=== PATIENT | male | born 1975 | race Caucasian/White ===

== ENCOUNTER 2020-09-20 17:02 | Inpatient (IN) | payer OTHER, SELFPAY ==
[2020-09-20] VITALS (23 sets, daily range): BP systolic 130–158; BP diastolic 73–106; PULSE 88–103; RESP 11–30; TEMP 36.5–37.7; O2SAT 98–100; BMI 34.8
--- NOTE | ~2020-09-20 | CT_ITS ---
EXAMINATION: CT abdomen pelvis w con DATE: 09/24/2020 12:16 INDICATION: Sigmoid diverticulitis. TECHNIQUE: Computed tomography (CT) of the abdomen and pelvis was performed with 100 mL Omnipaque 350 intravenous contrast. Automated exposure control and iterative reconstruction technique were employe d. The dose-length product was 1206.50 mGy-cm. COMPARISON: CT abdomen and pelvis 09/20/2020 FINDINGS: The visualized portions of the lung bases demonstrate minimal atelectasis on the right. No pleural effusion. The heart size is normal. No pericardial effusion. There is a 5 mm cyst in the live r. There is a gallstone in the gallbladder, which is normal in size. The spleen, pancreas, adrenal gl ands, and kidneys are normal. There are scattered diverticula in the colon. There is wall thickening of the sigmoid colon with surrounding fat stranding and nearby foci of free intraperitoneal gas. Ther e are no dilated loops of bowel. The appendix is normal. There are no pathologically enlarged lymph n odes. There is trace ascites. There is severe lower lumbar spondylosis. IMPRESSION: 1. Sigmoid diverticulitis with new microperforation. No abscess. Reviewed, dictated and finalized at location A.
--- NOTE | ~2020-09-20 | CT_ITS ---
EXAMINATION: CT abdomen pelvis w con DATE: 09/20/2020 20:46 INDICATION: Flank pain TECHNIQUE: Computed tomography (CT) of the abdomen and pelvis was performed with 100 cc Omnipaque 350 intravenous contrast. The dose-length product was 1235.05 mGy-cm. Automated exposure control and ite rative reconstruction technique were employed. COMPARISON: No prior studies for comparison. . FINDINGS: Lung bases are unremarkable. Heart size normal. No significant pleural or pericardial effus ion. There is thickening of the sigmoid colon with diverticula and surrounding inflammatory change, m ost likely acute diverticulitis. Small amount or free fluid in the left paracolic gutter. No evidence for bowel obstruction. Small subcentimeter hypodense lesion left hepatic lobe, too small to characterize, although likely be nign. The spleen, pancreas, adrenal glands and kidneys are unremarkable. Gallbladder is present. No s ignificant vascular abnormality. No lymphadenopathy. Mild lumbar spondylosis. IMPRESSION: 1. Thickened sigmoid colon with surrounding inflammatory changes. Findings compatible with acute dive rticulitis, although underlying infectious colitis or adenocarcinoma are not excluded. Recommend foll ow-up GI evaluation following resolution of acute inflammatory changes. Reviewed, dictated and finalized at location A. IMPRESSION: 1. Thickened sigmoid colon with surrounding inflammatory changes. Findings comp atible with acute diverticulitis, although underlying infectious colitis or sonia nocarcinoma are not excluded. Recommend follow-up GI evaluation following resol ution of acute inflammatory changes.
[2020-09-20 18:06] LABS: Basophils Absolute Auto 0.1 K/mm3 (0.0-0.1); Basophils Percent Auto 0.4 % (0.2-1.2); Eosinophils Absolute Auto 0.1 K/mm3 (0-0.3); Eosinophils Percent Auto 0.4 % (0-4.4); Hematocrit 44.4 % (42.0-52.0); Hemoglobin 14.8 g/dL (14.0-18.0); Immature Granulocyte Absolute 0.07 K/mm3 (0.00-0.031); Immature Granulocyte Percent A 0.4 % (0-0.5); Lymphocytes Absolute Auto 1.61 K/mm3 (0.9-3.2); Lymphocytes Percent Auto 9.8 % (18.3-44.2); Mean Corpuscular HGB Conc 33.3 g/dl (32-36); Mean Corpuscular Hemoglobin 31.7 pg (26-34); Mean Corpuscular Volume 95.1 fl (80-100); Mean Platelet Volume 9.1 fl (7.4-10.4); Monocytes Absolute Auto 1.2 K/mm3 (0.1-0.6); Monocytes Percent Auto 7.4 % (2.6-8.5); Neutrophils Absolute Auto 13.4 K/mm3 (1.3-6.7); Neutrophils Percent Auto 81.6 % (45.5-73.1); Platelet Count Result 260 k/mm3 (150-375); Red Blood Count 4.67 M/mm3 (4.6-6.20); White Blood Count 16.4 K/mm3 (4.5-10.0)
[2020-09-20 18:17] LABS: Alanine Aminotransferase 31 U/L (4-50); Albumin Level 4.9 g/dL (3.5-5.1); Alkaline Phosphatase 81 U/L (38-126); Anion Gap 12 mmol/L (8-16); Aspartate Amino Transferase 62 U/L (17-59); Bilirubin,Total 1.6 mg/dL (0.2-1.3); Blood Urea Nitrogen 15 mg/dL (9-20); Calcium 9.5 mg/dL (8.4-10.2); Carbon Dioxide 23 mmol/L (22-30); Chloride 107 mmol/L (98-107); Estimated CRCL calculation 134 ml/min; Estimated Glomerular Filt Rate > 60; Glucose 95 mg/dL (75-110); Lipase 57 U/L (23-300); Potassium 3.9 mmol/L (3.4-5.0); Sodium 142 mmol/L (137-145)
[2020-09-20 18:20] LABS: Add Urine Microscopic? YES; Appearance Urine Clear (Clear); Bilirubin Urine Negative (Negative); Blood Urine 1+ (Negative); Color Urine Yellow (Yellow); Glucose Urine UA Negative (Negative); Ketones Urine 2+ mg/dL (Negative); Leukocyte Esterase Ur Negative LEU/UL (Negative); Mucus Urine Few /lpf; Nitrate Urine Negative (Negative); Protein Urine 1+ mg/dL (Negative); RBC Urine 0-2 /hpf (0-2); Squamous Epithelial Cell Urine Rare /hpf (Few); Urobilinogen Urine Negative mg/dL (<2.0); WBC Urine 0-3 /hpf
[2020-09-20 18:21] LABS: Specific Grav Ur 1.031 (1.001-1.035)
--- NOTE | 2020-09-20 20:25 | ED.ABDPAIN ---
HPI - Abdominal Pain General Chief Complaint: Abdominal Pain Stated Complaint: Abd Pain Time Seen by Provider: 09/20/20 20:23 Source: patient Mode of arrival: ambulatory Limitations: no limitations History of Present Illness HPI narrative: Patient is a 45-year-old male complaining of right flank pain, 8 at 10, sharp, nonradiating started around 4 AM this morning. Patient was complained of nausea, denies any vomiting, diarrhea, dysuria, fever or chills. Patient denies any chest pain or shortness of breath. Related Data Allergies Allergy/AdvReac Type Severity Reaction Status Date / Time No Known Allergies Allergy Unknown Unverified 01/17/17 13:12 Review of Systems Review of Systems: All systems reviewed & are unremarkable except as noted in HPI and below Constitutional: Constitutional: Denies body ache(s), Denies chills, Denies excessive sweating, Denies fatigue, Denies fever(s), Denies headache(s), Denies lethargy, Denies malaise, Denies weakness and Denies weight loss Eyes: Eyes: Denies blurry vision, Denies change in vision and Denies loss of vision ENT: Denies dizziness, Denies ear discharge, Denies headache(s), Denies lip swelling, Denies epistaxis, Denies nasal congestion, Denies neck pain, Denies throat swelling and Denies tongue swelling Cardiovascular: Cardiovascular: Denies chest pain, Denies chest pain at rest, Denies chest pain with activity, Denies diaphoresis, Denies rapid heart rate, Denies edema, Denies irregular heart rhythm, Denies lightheadedness, Denies palpitations, Denies dyspnea and Denies dyspnea on exertion Respiratory: Respiratory: Denies chest congestion, Denies cough, Denies hemoptysis, Denies dyspnea and Denies dyspnea on exertion Gastrointestinal: Gastrointestinal: Denies abdominal pain, Denies melena, Denies hematochezia, Denies diarrhea, Denies vomiting and Denies hematemesis Musculoskeletal: Musculoskeletal: Denies abnormal gait, Denies deformity, Denies joint swelling, Denies limited range of motion, Denies neck pain and Denies numbness Neurologic: Denies Abnormal speech present, Denies abnormal gait, Denies confusion, Denies dizziness, Denies headache(s), Denies focal weakness, Denies loss of vision, Denies numbness, Denies Other visual disturbances, Denies Sensory deficit (Neuro) and Denies weakness Psychiatric: Psychiatric: Denies confusion, Denies depression, Denies auditory hallucinations, Denies homicidal ideation and Denies suicidal ideation Endocrine: Endocrine: Denies cold intolerance, Denies excessive sweating, Denies fatigue, Denies heat intolerance and Denies palpitations Hematologic/Lymphatic: Hematologic/Lymphatic: Denies easy bleeding and Denies easy bruising Allergic/Immunologic: Allergic/Immunologic: Denies lip swelling, Denies throat swelling and Denies tongue swelling PMFSH Family History Family History (Updated 12/24/13 @ 07:13 by DOCTOR UNKNOWN) Mother Family history of malignant neoplasm of uterus Social History Social History Smoking status: Former smoker Smoking end date: 04/29/02 Alcohol intake: current Gender identity (if verbalized by the patient): Male Comments Past medical history: None Social history: Non-smoker, no EtOH or drug use Exam Const: General: cooperative, healthy appearing, comfortable, no acute distress, well developed, alert and awake; No confusion Orientation/consciousness: oriented to person, oriented to place, oriented to time, patient oriented x3 and No confusion Limitations: no limitations HENMT: Head: normal to inspection, normocephalic and atraumatic Ears: hearing grossly normal bilaterally, TM normal on the right and TM normal on the left General nose exam: Normal external nose present, Normal nares present and No nasal discharge present Face and sinus: normal facial exam Mouth: Yes Normal oral and palatal mucosa present, Yes lip normal, Yes tongue normal and Yes oropharynx normal Throat: posterior oropharynx normal, to
[2020-09-20] MEDS: SODIUM CHLORIDE 0.9% IV 1,000 ML 999 ML IV CONT (21:02)
[2020-09-20] MEDS: PROMETHAZINE HCL 25 MG/ML AMPUL 12.5 MG IV PUSH (21:03)
[2020-09-20] MEDS: KETOROLAC 30 MG/ML VIAL (*BKC) IV PUSH (21:03)
[2020-09-20] MEDS: HYDROmorphone HCL INJ (*CRX) 1 MG/ML SYR 0.5 MG IV PUSH (22:24)
[2020-09-20] MEDS: metroNIDAZOLE 500 MG/ISO 100ML 500 MG/100 ML BAG 100 MG IVPB (22:26)
--- NOTE | 2020-09-20 23:32 | ADMGEN ---
This patient, Luis Felipe Chun, was admitted to Medical Room 346-01. Patient/family oriented to hospital policies and general routines including ID bracelet, bed and alarms, visiting hours, pain management, procedures, bathroom and other care routines, personal items, smoking policy, room service/diet, and visiting hours. Information on how to activate the Rapid Response Team has been discussed. Patient/Family are encouraged to report perceived risks to care and to ask questions if they do not understand what they are told or what they should do.
[2020-09-20] MEDS: LACTATED RINGERS 1,000 ML 125 ML IV CONT (23:35)
[2020-09-21] MEDS: HYDROmorphone HCL INJ (*CRX) 1 MG/ML SYR 0.5 MG IV PUSH ×3 (00:02→06:32)
[2020-09-21 00:35] VITALS: PULSE 88; O2SAT 99
[2020-09-21 05:13] VITALS: BP 144/87; PULSE 84; RESP 17; TEMP 36.9; O2SAT 99
[2020-09-21] MEDS: LACTATED RINGERS 1,000 ML 125 ML IV CONT ×2 (07:49→20:55)
--- NOTE | 2020-09-21 08:56 | PM.IMHP ---
H&P: HPI History of Present Illness Date/Time: 09/21/20 08:56 Chief Complaint: Patient is a 45-year-old man with a history of hyperlipidemia, depression, presents to emergency room with abdominal pain. Patient woke up at 4:00 a.m. on Saturday09/20/20 with lower abdominal pain bilaterally. He described as a gastric cramp felt like he needed to have a bowel movement. He was unable to have a bowel movement decided to go to work. He worked all day and his symptoms became gradually worse with intermittent sharp, stabbing, burning discomfort mostly to right lower quadrant but also has symptoms to left lower quadrant. He reported associated nausea and decreased appetite. He has not eaten anything since pain began. Denies any vomiting. He did have some fevers and chills in the emergency room prior to admission. He denies having a few loose stools but no melena, hematochezia, diarrhea. He has never had similar symptoms before in the past. He did have a colonoscopy in 25 years old because they believe she had irritable bowel disease. At that time they did remove 1 polyp that was benign. Initial vitals showed,0 He was afebrile, non tachycardic, elevated blood pressure 153/95, normal oxygenation on room air. Initial labs showed leukocytosis with at 16,400, with elevated neutrophils. CMP showed elevated total bilirubin at 1.6, elevated AST is 62. Normal ALT. Normal lipase. Urinalysis showed 1+ protein, 2+ ketones, 1+ blood, otherwise no acute signs of UTI. CT abdomen pelvis showed thickened sigmoid colon with surrounding inflammatory changes. Findings compatible with acute diverticulitis, although underlying infectious colitis or adenocarcinoma are not excluded. The patient was admitted into the hospital and started on IV antibiotics for coverage of diverticulitis, IV pain medications, IV antiemetics in a GI consultation for further evaluation and monitoring. Code status: Full code POA: , Angelita Chun PCP at [facility] in [place], Review of Systems Review of Systems: All systems reviewed & are unremarkable except as noted in HPI and below PMFSH Past Medical History Medical History Diverticulitis HLD (hyperlipidemia) Sleep apnea Surgical History Surgical History Hx of colonoscopy 2000, one polyp removed Hx of vasectomy Family History Family History Mother Family history of malignant neoplasm of uterus Father Afib Social History Social History (Updated 09/21/20 @ 09:52 by Cammy Smiley PA-C) Smoking status: Former smoker Tobacco type: cigarettes Smoking end date: 04/29/02 Alcohol intake: current Drinks per week: 12 Substance use: current Substance use type: marijuana Living arrangements: with family Occupation/Education: occupation Gender identity (if verbalized by the patient): Male Spiritual care concerns: No Meds Home Medications and Allergies Home Medications Medication Instructions Recorded Confirmed Type atorvastatin 40 mg PO DAILY 09/20/20 09/20/20 History sertraline 25 mg PO DAILY 09/20/20 09/20/20 History Allergies Allergy/AdvReac Type Severity Reaction Status Date / Time No Known Allergies Allergy Unknown Verified 09/20/20 23:43 Vital Signs Vital Signs - 24 hr 09/20/20 17:54 09/20/20 20:25 09/20/20 20:26 Temperature 97.7 F Pulse Rate 99 100 97 Respiratory Rate 19 15 17 Blood Pressure 153/95 H 158/106 H Pulse Oximetry 100 100 100 09/20/20 20:27 09/20/20 20:30 09/20/20 20:31 Temperature Pulse Rate 98 100 96 Respiratory Rate 11 L 16 11 L Blood Pressure 154/96 H Pulse Oximetry 100 98 99 09/20/20 20:47 09/20/20 21:01 09/20/20 21:02 Temperature Pulse Rate 103 H 97 98 Respiratory Rate 17 18 14 Blood Pressure 138/87 Pulse Oximetry 99 99 99 09/20/20 21:15
[2020-09-21 09:27] LABS: Basophils Absolute Auto 0.1 K/mm3 (0.0-0.1); Basophils Percent Auto 0.5 % (0.2-1.2); Eosinophils Absolute Auto 0.1 K/mm3 (0-0.3); Eosinophils Percent Auto 0.5 % (0-4.4); Hematocrit 39.6 % (42.0-52.0); Hemoglobin 13.3 g/dL (14.0-18.0); Immature Granulocyte Absolute 0.07 K/mm3 (0.00-0.031); Immature Granulocyte Percent A 0.5 % (0-0.5); Lymphocytes Absolute Auto 1.49 K/mm3 (0.9-3.2); Lymphocytes Percent Auto 9.6 % (18.3-44.2); Mean Corpuscular HGB Conc 33.6 g/dl (32-36); Mean Corpuscular Volume 95.4 fl (80-100); Monocytes Absolute Auto 1.2 K/mm3 (0.1-0.6); Monocytes Percent Auto 7.4 % (2.6-8.5); Neutrophils Absolute Auto 12.7 K/mm3 (1.3-6.7); Neutrophils Percent Auto 81.5 % (45.5-73.1); Platelet Count Result 216 k/mm3 (150-375); Red Blood Count 4.15 M/mm3 (4.6-6.20); White Blood Count 15.5 K/mm3 (4.5-10.0)
[2020-09-21] MEDS: PANTOPRAZOLE SODIUM IV 40 MG VIAL IV PUSH ×2 (09:29→21:00)
[2020-09-21] MEDS: HYDROmorphone HCL INJ (*CRX) 1 MG/ML SYR IV PUSH ×4 (09:29→20:51)
[2020-09-21 10:01] LABS: Alanine Aminotransferase 21 U/L (4-50); Albumin Level 3.9 g/dL (3.5-5.1); Alkaline Phosphatase 68 U/L (38-126); Anion Gap 6 mmol/L (8-16); Aspartate Amino Transferase 44 U/L (17-59); Bilirubin,Total 1.8 mg/dL (0.2-1.3); Blood Urea Nitrogen 12 mg/dL (9-20); Carbon Dioxide 24 mmol/L (22-30); Chloride 108 mmol/L (98-107); Estimated CRCL calculation 135 ml/min; Estimated Glomerular Filt Rate > 60; Glucose 103 mg/dL (75-110); Sodium 138 mmol/L (137-145)
[2020-09-21 11:12] LABS: CRP 18.5 mg/dL (<1.0)
[2020-09-21] MEDS: metroNIDAZOLE 500 MG/ISO 100ML 500 MG/100 ML BAG 100 MG IVPB ×3 (11:12→21:00)
[2020-09-21] MEDS: ONDANSETRON INJ 4 MG/2 ML VIAL IV PUSH (13:01)
[2020-09-21 14:00] VITALS: BP 130/62; PULSE 71; RESP 18; TEMP 36.3; O2SAT 98
--- NOTE | 2020-09-21 15:56 | WPDGICN ---
Assessment and Plan Assessment and plan (1) Acute diverticulitis: Code(s): K57.92 - Diverticulitis of intestine, part unspecified, without perforation or abscess without bleeding Status: Acute Assessment and Plan: npo, started on iv antibiotics continue medical support will need a colonoscopy but will wait 4-5 weeks until acute inflammation is resolved (2) Lower abdominal pain: Code(s): R10.30 - Lower abdominal pain, unspecified Status: Acute Assessment and Plan: diverticulitis vs colitis (reviewed CT scan), discussed with patient the need to have a colonoscopy in few more weeks as outpatient (3) Leukocytosis: Code(s): D72.829 - Elevated white blood cell count, unspecified Status: Acute Assessment and Plan: on antibitiocs, monitor GI Consult Note Consult date/time: 09/21/20 15:56 Reason for consult: lower abdominal pain, diverticulitis HPI: Luis Felipe Chun is a 45 year old male with history of hyperlipidemia and depression here with new onset of pain in lower abdominal pain that woke him up at 4:00 a.m. on Saturday09/20/20. He had cramping and feeling like having a bowel movement but could not. Pain progressively got worse, intermittent, sharp and stabbing in both lower quadrants, also had nausea and decreased appetite. He had a colonoscopy 20 years ago because IBS and apparently removed one polyp. Labs showed leukocytosis at 16,400. CT abdomen pelvis reviewed, showed thickened sigmoid colon with surrounding inflammatory changes. Started on iv antibiotics and admitted to hospital. Review of Systems Constitutional: Constitutional: Reports chills Eyes: Eyes: Denies blurry vision ENT: Reports Normal hearing present Cardiovascular: Cardiovascular: Denies chest pain Respiratory: Respiratory: Denies dyspnea Gastrointestinal: Gastrointestinal: Reports abdominal pain and Reports nausea Genitourinary: Genitourinary: Denies dysuria Musculoskeletal: Musculoskeletal: Denies neck pain Integumentary/Breasts: Skin/Breast: Denies dry skin Neurologic: Denies headache(s) Psychiatric: Psychiatric: Reports no additional psychiatric complaints [facility] Past Medical History Medical History (Updated 09/21/20 @ 16:01 by Nixon Vasquez MD) Diverticulitis HLD (hyperlipidemia) Leukocytosis Lower abdominal pain Sleep apnea Surgical History Surgical History Hx of colonoscopy 2000, one polyp removed Hx of vasectomy Family History Family History Mother Family history of malignant neoplasm of uterus Father Afib Social History Social History (Updated 09/21/20 @ 09:52 by Cammy Smiley PA-C) Smoking status: Former smoker Tobacco type: cigarettes Smoking end date: 04/29/02 Alcohol intake: current Drinks per week: 12 Substance use: current Substance use type: marijuana Living arrangements: with family Occupation/Education: occupation Gender identity (if verbalized by the patient): Male Spiritual care concerns: No Meds Home Medications and Allergies Home Medications Medication Instructions Recorded Confirmed Type atorvastatin 40 mg PO DAILY 09/20/20 09/20/20 History sertraline 25 mg PO DAILY 09/20/20 09/20/20 History Allergies Allergy/AdvReac Type Severity Reaction Status Date / Time No Known Allergies Allergy Unknown Verified 09/20/20 23:43 Vital Signs Vital Signs - 24 hr 09/20/20 17:54 09/20/20 20:25 09/20/20 20:26 Temperature 97.7 F Pulse Rate 99 100 97 Respiratory Rate 19 15 17 Blood Pressure 153/95 H 158/106 H Pulse Oximetry 100 100 100 09/20/20 20:27 09/20/20 20:30 09/20/20 20:31 Temperature Pulse Rate 98 100 96 Respiratory Rate 11 L 16 11 L Blood Pressure 154/96 H Pulse Oximetry 100 98 99 09/20/20 20:47 09/20/20 21:01 09/20/20 21:02 Temperature Pulse Rate 10
[2020-09-21 20:16] VITALS: BP 146/65; PULSE 80; RESP 14; TEMP 36; O2SAT 100
[2020-09-22] MEDS: ZOLPIDEM TARTRATE (*CRX) 5 MG TABLET PO ×2 (00:15→22:36)
[2020-09-22] MEDS: HYDROmorphone HCL INJ (*CRX) 1 MG/ML SYR IV PUSH ×7 (00:16→23:41)
[2020-09-22 00:21] VITALS: PULSE 97; O2SAT 95
[2020-09-22] MEDS: metroNIDAZOLE 500 MG/ISO 100ML 500 MG/100 ML BAG 100 MG IVPB ×4 (04:30→22:30)
[2020-09-22] MEDS: LACTATED RINGERS 1,000 ML 125 ML IV CONT ×2 (05:47→17:20)
[2020-09-22 06:00] VITALS: BP 133/76; PULSE 90; RESP 14; TEMP 36.6; O2SAT 97
[2020-09-22 06:02] LABS: Basophils Absolute Auto 0.1 K/mm3 (0.0-0.1); Basophils Percent Auto 0.4 % (0.2-1.2); Eosinophils Absolute Auto 0.1 K/mm3 (0-0.3); Eosinophils Percent Auto 0.7 % (0-4.4); Hematocrit 39.3 % (42.0-52.0); Hemoglobin 12.9 g/dL (14.0-18.0); Immature Granulocyte Percent A 0.7 % (0-0.5); Lymphocytes Absolute Auto 0.85 K/mm3 (0.9-3.2); Lymphocytes Percent Auto 6.1 % (18.3-44.2); Mean Corpuscular HGB Conc 32.8 g/dl (32-36); Mean Corpuscular Hemoglobin 31.6 pg (26-34); Mean Corpuscular Volume 96.3 fl (80-100); Mean Platelet Volume 9.5 fl (7.4-10.4); Monocytes Absolute Auto 1.1 K/mm3 (0.1-0.6); Monocytes Percent Auto 8.1 % (2.6-8.5); Neutrophils Absolute Auto 11.6 K/mm3 (1.3-6.7); Platelet Count Result 215 k/mm3 (150-375); Red Blood Count 4.08 M/mm3 (4.6-6.20); Red Cell Distribution Width 12.8 % (11.5-14.5); White Blood Count 13.9 K/mm3 (4.5-10.0)
[2020-09-22 06:28] LABS: Alanine Aminotransferase 17 U/L (4-50); Albumin Level 3.8 g/dL (3.5-5.1); Alkaline Phosphatase 67 U/L (38-126); Anion Gap 7 mmol/L (8-16); Aspartate Amino Transferase 36 U/L (17-59); Bilirubin,Total 1.6 mg/dL (0.2-1.3); Blood Urea Nitrogen 9 mg/dL (9-20); Calcium 8.8 mg/dL (8.4-10.2); Carbon Dioxide 22 mmol/L (22-30); Chloride 108 mmol/L (98-107); Estimated CRCL calculation 135 ml/min; Estimated Glomerular Filt Rate > 60; Glucose 82 mg/dL (75-110); Sodium 137 mmol/L (137-145)
[2020-09-22 06:42] LABS: CRP 24.1 mg/dL (<1.0)
[2020-09-22 08:59] LABS: Bilirubin Indirect 1.3 mg/dL (0-1.1)
[2020-09-22] MEDS: PANTOPRAZOLE SODIUM IV 40 MG VIAL IV PUSH ×2 (09:01→20:49)
--- NOTE | 2020-09-22 09:28 | PM.IMPN ---
Progress Note: A&P Assessment and Plan (1) Acute diverticulitis: Code(s): K57.92 - Diverticulitis of intestine, part unspecified, without perforation or abscess without bleeding Status: Acute Assessment and Plan: Patient with lower abdominal pain, low-grade fever, leukocytosis in the setting of acute diverticulitis. Patient is started on a clear liquid diet. Will monitor. IV pain medication IV antibiotics for diverticulitis GI was consulted and recommends continuing abx and will proceed with outpatient colonoscopy after acute infection improves. Continue monitoring. Appreciate GIs input. (2) HLD (hyperlipidemia): Code(s): E78.5 - Hyperlipidemia, unspecified Status: Acute Assessment and Plan: Hold statin while NPO. Restart when necessary. (3) Depression: Code(s): F32.9 - Major depressive disorder, single episode, unspecified Status: Acute Assessment and Plan: Hold SSRI while NPO. Restart when necessary. (4) Sleep apnea: Code(s): G47.30 - Sleep apnea, unspecified Status: Inactive Assessment and Plan: Continue home CPAP machine. Additional Plan Patient was admitted under inpatient for his acute infection and will require more than 2 days of hospitalization Time Spent With Patient Time with patient: 25 - 35 minutes Subjective Date/time seen: 09/22/20 09:28 Interval history: Date of service 09/22/20: He is feeling better this morning.Having improved pain, constant lower abdominal pain rated 5/10. Had one intermittent sharp stabbing pain this morning with increase of pain to 8/10 with associated nausea. No vomiting, chest pain, SOB, cough, fever, chills, or any other symptoms at this time. Review of Systems Review of Systems: All systems reviewed & are unremarkable except as noted in HPI and below Exam Narrative: Exam Narrative: General: 45-year-old man laying in bed on his back, appears to be uncomfortable with moving in bed. In no acute distress. Skin: No jaundice or cyanosis. Good skin turgor. Neck: Full range of motion. Supple. Respiratory: Lungs are clear to auscultation bilaterally. No bony chest wall tenderness. Cardiovascular: The heart has a regular rate and rhythm without murmur. Lower extremities: No lower extremity edema. Distal pulses are easily palpated. No calf tenderness to palpation. Gastrointestinal: TTP of RLQ and LLQ. The abdomen is soft, nondistended with active bowel sounds. Psychiatric: Lucid and oriented. Memory intact. Neurologic: No focal deficits. Speech is clear. No facial drooping. Objective Data Vital Signs Vital Signs: Vital Signs - 24 hr 09/21/20 14:00 09/21/20 20:16 09/22/20 00:21 Temperature 97.4 F L 96.8 F L Pulse Rate 71 80 97 Respiratory Rate 18 14 Blood Pressure 130/62 146/65 H Pulse Oximetry 98 100 95 09/22/20 06:00 Temperature 98 F Pulse Rate 90 Respiratory Rate 14 Blood Pressure 133/76 Pulse Oximetry 97 Intake/Output Intake/Output: Intake & Output 09/19/20 09/20/20 09/21/20 09/22/20 23:59 23:59 23:59 23:59 Intake Total 1150 2550 1440 Output Total 1825 200 Balance 8662 279 6062 Meds/Results Medications: Active Medications Generic Name Dose Route Start Last Admin Trade Name Freq PRN Reason Stop Dose Admin Hydromorphone HCl 1 mg 09/21/20 08:55 09/22/20 09:09 Hydromorphone Hcl Inj (*Crx) 1 Mg/Ml Syr IV PUSH 1 mg Q3H PRN Administration Pain Rated 7-10 Hydromorphone HCl 0.5 mg 09/21/20 08:55 Hydromorphone Hcl Inj (*Crx) 1 Mg/Ml Syr IV PUSH Q3H PRN Pain Rated 4-6 Lactated Ringer's 1,000 mls @ 125 mls/hr 09/20/20 22:30 09/22/20 09:01 Lr - Lactated Ringers Iv IV CONT 0 mls/hr .Q8H JOSH Infusion Metronidazole
[2020-09-22] MEDS: LORATADINE/PSEUDOEPHEDRINE (*CRX) 10/240 MG TABLET ER 24 HR 1 TAB PO (12:10)
[2020-09-22] MEDS: ACETAMINOPHEN 325 MG TABLET 650 MG PO (12:10)
[2020-09-22 14:00] VITALS: BP 129/69; PULSE 87; RESP 16; TEMP 37.3; O2SAT 98
--- NOTE | 2020-09-22 16:20 | WPDGIPROGNO ---
Progress Note: A&P Assessment and Plan (1) Acute diverticulitis: Code(s): K57.92 - Diverticulitis of intestine, part unspecified, without perforation or abscess without bleeding Status: Acute Assessment and Plan: continue current treatment with pain management, antiemetics prn and iv antibiotic colonoscopy in few more weeks after acute infection gone (2) Leukocytosis: Code(s): D72.829 - Elevated white blood cell count, unspecified Status: Acute Assessment and Plan: on antibiotics, continue to monitor (3) Lower abdominal pain: Code(s): R10.30 - Lower abdominal pain, unspecified Status: Acute Assessment and Plan: improving Subjective Date/time seen: 09/22/20 16:20 Interval history: still with pain but slowly improving Review of Systems Review of Systems: All systems reviewed & are unremarkable except as noted in HPI and below Exam Const: General: comfortable and no acute distress HENMT: General nose exam: Normal nares present Eyes: General: appearance normal, both eyes and all related structures Neck: Neck: supple Resp: Auscultation: clear to auscultation bilaterally Cardio: Rate: regular rate GI: GI Palp: No Firmness to palpation present (GI) and Yes Tenderness to palpation present (GI) (less tender today, no rebound) Auscultation: normal bowel sounds Skin: General skin exam: normal color Neuro: Speech: normal speech Motor exam (neuro): Normal motor muscle tone present throughout Extrem: General: normal to inspection Psych: Mental Status: mental status grossly normal Objective Data Vital Signs Vital Signs: Vital Signs - 24 hr 09/21/20 20:16 09/22/20 00:21 09/22/20 06:00 Temperature 96.8 F L 98 F Pulse Rate 80 97 90 Respiratory Rate 14 14 Blood Pressure 146/65 H 133/76 Pulse Oximetry 100 95 97 09/22/20 14:00 Temperature 99.2 F Pulse Rate 87 Respiratory Rate 16 Blood Pressure 129/69 Pulse Oximetry 98 Intake/Output Intake/Output: Intake & Output 09/19/20 09/20/20 09/21/20 09/22/20 23:59 23:59 23:59 23:59 Intake Total 1150 2550 2590 Output Total 1825 200 Balance 0775 354 7440 Meds/Results Medications: Active Medications Generic Name Dose Route Start Last Admin Trade Name Freq PRN Reason Stop Dose Admin Acetaminophen 650 mg 09/22/20 11:47 09/22/20 12:10 Acetaminophen 325 Mg Tablet PO 650 mg Q4H PRN Administration Headache Hydromorphone HCl 1 mg 09/21/20 08:55 09/22/20 13:36 Hydromorphone Hcl Inj (*Crx) 1 Mg/Ml Syr IV PUSH 1 mg Q3H PRN Administration Pain Rated 7-10 Hydromorphone HCl 0.5 mg 09/21/20 08:55 Hydromorphone Hcl Inj (*Crx) 1 Mg/Ml Syr IV PUSH Q3H PRN Pain Rated 4-6 Lactated Ringer's 1,000 mls @ 125 mls/hr 09/20/20 22:30 09/22/20 12:45 Lr - Lactated Ringers Iv IV CONT 125 mls/hr .Q8H JOSH Infusion Metronidazole 500 mg in 100 mls @ 100 mls/hr 09/21/20 10:00 09/22/20 12:45 Flagyl 500 Mg/Iso Soln 100 Ml IVPB Infused Q6H JOSH Infusion Levofloxacin/Dextrose 750 mg in 150 mls @ 100 mls/hr 09/21/20 09:00 09/22/20 11:38 Levaquin 750 Mg/D5w 150 Ml IVPB Infused Q24H JOSH Infusion Loratadine/Pseudoephedrine Sulfate 1 tab 09/22/20 09:00 09/22/20 12:10 Loratadine/Pseudoephedrine (*Crx) 10/240 Mg Tablet Er 24 Hr PO 1 tab QAM JOSH Administration Ondansetron HCl 4 mg 09/20/20 22:28 09/21/20 13:01 Ondansetron Inj 4 Mg/2 Ml Vial IV PUSH 4 mg Q4H PRN Administration Nausea Pantoprazole Sodium 40 mg 09/21/20 09:00 09/22/20 09:01 Pantoprazole Sodium Iv 40 Mg Vial IV PUSH 40 mg Q12HR JOSH Administration Radiology Results: ITS Impressions Abdomen/Pelvis CT 09/20/20 20:49 IMPRESSION: 1. Thickened sigmoid colon with surrounding inflammatory changes. Findings compatible with acute diverticulitis, although underlying infectious colitis or adenocarcinoma are not excluded. Recommend follow-up GI eval
[2020-09-22 20:16] VITALS: BP 140/72; PULSE 91; RESP 20; TEMP 36.8; O2SAT 100
[2020-09-22 22:50] VITALS: PULSE 89; O2SAT 98
[2020-09-23] MEDS: HYDROmorphone HCL INJ (*CRX) 1 MG/ML SYR IV PUSH ×3 (03:18→10:28)
[2020-09-23] MEDS: ONDANSETRON INJ 4 MG/2 ML VIAL IV PUSH (03:21)
[2020-09-23] MEDS: metroNIDAZOLE 500 MG/ISO 100ML 500 MG/100 ML BAG 100 MG IVPB ×4 (03:23→21:09)
[2020-09-23 05:26] VITALS: BP 138/78; PULSE 89; RESP 18; TEMP 36.1; O2SAT 99
[2020-09-23 05:47] LABS: Basophils Percent Auto 0.5 % (0.2-1.2); Eosinophils Absolute Auto 0.2 K/mm3 (0-0.3); Eosinophils Percent Auto 2.2 % (0-4.4); Hematocrit 39.6 % (42.0-52.0); Hemoglobin 12.9 g/dL (14.0-18.0); Immature Granulocyte Absolute 0.06 K/mm3 (0.00-0.031); Immature Granulocyte Percent A 0.7 % (0-0.5); Lymphocytes Percent Auto 10.2 % (18.3-44.2); Mean Corpuscular HGB Conc 32.6 g/dl (32-36); Mean Corpuscular Hemoglobin 31.8 pg (26-34); Mean Corpuscular Volume 97.5 fl (80-100); Mean Platelet Volume 9.6 fl (7.4-10.4); Monocytes Absolute Auto 0.9 K/mm3 (0.1-0.6); Monocytes Percent Auto 10.3 % (2.6-8.5); Neutrophils Absolute Auto 6.7 K/mm3 (1.3-6.7); Neutrophils Percent Auto 76.1 % (45.5-73.1); Platelet Count Result 219 k/mm3 (150-375); Red Blood Count 4.06 M/mm3 (4.6-6.20); Red Cell Distribution Width 12.9 % (11.5-14.5); White Blood Count 8.8 K/mm3 (4.5-10.0)
[2020-09-23 06:16] LABS: Alanine Aminotransferase 14 U/L (4-50); Albumin Level 3.7 g/dL (3.5-5.1); Alkaline Phosphatase 62 U/L (38-126); Anion Gap 7 mmol/L (8-16); Aspartate Amino Transferase 36 U/L (17-59); Blood Urea Nitrogen 7 mg/dL (9-20); Carbon Dioxide 29 mmol/L (22-30); Chloride 104 mmol/L (98-107); Estimated CRCL calculation 120 ml/min; Estimated Glomerular Filt Rate > 60; Glucose 106 mg/dL (75-110); Potassium 3.8 mmol/L (3.4-5.0); Sodium 140 mmol/L (137-145)
[2020-09-23 06:26] LABS: CRP 20.1 mg/dL (<1.0)
[2020-09-23] MEDS: LACTATED RINGERS 1,000 ML 125 ML IV CONT (08:56)
[2020-09-23] MEDS: PANTOPRAZOLE SODIUM IV 40 MG VIAL IV PUSH ×2 (08:57→21:10)
[2020-09-23] MEDS: LORATADINE/PSEUDOEPHEDRINE (*CRX) 10/240 MG TABLET ER 24 HR 1 TAB PO (08:58)
--- NOTE | 2020-09-23 10:03 | PM.IMPN ---
Progress Note: A&P Assessment and Plan (1) Acute diverticulitis: Code(s): K57.92 - Diverticulitis of intestine, part unspecified, without perforation or abscess without bleeding Status: Acute Assessment and Plan: Patient with lower abdominal pain, low-grade fever, leukocytosis in the setting of acute diverticulitis. Patient was advanced to a full liquid diet. He has been able to hold down. To start oral pain meds, IV pain meds p.r.n. for severe pain IV antibiotics for diverticulitis GI was consulted and recommends continuing abx and will proceed with outpatient colonoscopy after acute infection improves. Continue monitoring. Appreciate GIs input. (2) HLD (hyperlipidemia): Code(s): E78.5 - Hyperlipidemia, unspecified Status: Acute Assessment and Plan: Restart statin. (3) Depression: Code(s): F32.9 - Major depressive disorder, single episode, unspecified Status: Acute Assessment and Plan: Continue SSRI. (4) Sleep apnea: Code(s): G47.30 - Sleep apnea, unspecified Status: Inactive Assessment and Plan: Continue home CPAP machine. Additional Plan Patient was admitted under inpatient for his acute infection and will require more than 2 days of hospitalization Time Spent With Patient Time with patient: 25 - 35 minutes Subjective Date/time seen: 09/23/20 10:03 Interval history: Date of service 09/23/20: He is feeling better this morning but after eating he has been getting increased pain to his lower abdomen, increasing to 8/10. He still does not have much of an appetite. Denies any vomiting, fevers or chills. Having improved pain, constant lower abdominal pain rated 3/10. No vomiting, chest pain, SOB, cough, fever, chills, or any other symptoms at this time. Review of Systems Review of Systems: All systems reviewed & are unremarkable except as noted in HPI and below Exam Narrative: Exam Narrative: General: 45-year-old man laying in bed on his back, appears to be comfortable at this time. In no acute distress. Skin: No jaundice or cyanosis. Good skin turgor. Neck: Full range of motion. Supple. Respiratory: Lungs are clear to auscultation bilaterally. No bony chest wall tenderness. Cardiovascular: The heart has a regular rate and rhythm without murmur. Lower extremities: No lower extremity edema. Distal pulses are easily palpated. No calf tenderness to palpation. Gastrointestinal: TTP of RLQ and LLQ. The abdomen is soft, nondistended with active bowel sounds. Psychiatric: Lucid and oriented. Memory intact. Neurologic: No focal deficits. Speech is clear. No facial drooping. Objective Data Vital Signs Vital Signs: Vital Signs - 24 hr 09/22/20 14:00 09/22/20 20:16 09/22/20 22:50 Temperature 99.2 F 98.3 F Pulse Rate 87 91 89 Respiratory Rate 16 20 Blood Pressure 129/69 140/72 Pulse Oximetry 98 100 98 09/23/20 05:26 Temperature 97 F L Pulse Rate 89 Respiratory Rate 18 Blood Pressure 138/78 Pulse Oximetry 99 Intake/Output Intake/Output: Intake & Output 09/20/20 09/21/20 09/22/20 09/23/20 23:59 23:59 23:59 23:59 Intake Total 1150 2550 4510 1910 Output Total 1825 2000 1200 Balance 1552 118 1943 710 Meds/Results Medications: Active Medications Generic Name Dose Route Start Last Admin Trade Name Freq PRN Reason Stop Dose Admin Acetaminophen 650 mg 09/22/20 11:47 09/22/20 12:10 Acetaminophen 325 Mg Tablet PO 650 mg Q4H PRN Administration Headache Atorvastatin Calcium 40 mg 09/23/20 09:25 Atorvastatin 40 Mg Tablet PO DAILY JOSH Hydromorphone HCl 1 mg 09/21/20 08:55 09/23/20 06:23 Hydromorphone Hcl Inj (*Crx) 1 Mg/Ml Syr IV PUSH 1 mg Q3H PRN Administration Pain
[2020-09-23] MEDS: ATORVASTATIN 40 MG TABLET PO (11:28)
[2020-09-23] MEDS: SERTRALINE HCL 25 MG TABLET PO (11:28)
[2020-09-23 14:00] VITALS: BP 136/98; PULSE 90; RESP 16; TEMP 37.2; O2SAT 97
[2020-09-23] MEDS: HYDROmorphone HCL INJ (*CRX) 1 MG/ML SYR 0.5 MG IV PUSH (15:08)
--- NOTE | 2020-09-23 15:08 | WPDGIPROGNO ---
Progress Note: A&P Assessment and Plan (1) Acute diverticulitis: Code(s): K57.92 - Diverticulitis of intestine, part unspecified, without perforation or abscess without bleeding Status: Acute Assessment and Plan: continue current treatment with pain management, antiemetics prn and iv antibiotic today finally normal wbc, he is feeling better colonoscopy in few more weeks after acute infection gone (2) Leukocytosis: Code(s): D72.829 - Elevated white blood cell count, unspecified Status: Acute Assessment and Plan: on antibiotics, continue to monitor today normal wbc (3) Lower abdominal pain: Code(s): R10.30 - Lower abdominal pain, unspecified Status: Acute Assessment and Plan: improving Subjective Date/time seen: 09/23/20 15:08 Interval history: feeling better today, eating liquid diet with less abdominal pain Review of Systems Review of Systems: All systems reviewed & are unremarkable except as noted in HPI and below Exam Const: General: comfortable and no acute distress HENMT: General nose exam: Normal nares present Eyes: General: appearance normal, both eyes and all related structures Neck: Neck: supple Resp: Auscultation: clear to auscultation bilaterally Cardio: Rate: regular rate GI: GI Palp: No Firmness to palpation present (GI) and Yes Tenderness to palpation present (GI) (TTP in rlq and llq but no rebound, slowly improving) Auscultation: normal bowel sounds Skin: General skin exam: normal color Neuro: Speech: normal speech Motor exam (neuro): Normal motor muscle tone present throughout Extrem: General: normal to inspection Psych: Mental Status: mental status grossly normal Objective Data Vital Signs Vital Signs: Vital Signs - 24 hr 09/22/20 20:16 09/22/20 22:50 09/23/20 05:26 Temperature 98.3 F 97 F L Pulse Rate 91 89 89 Respiratory Rate 20 18 Blood Pressure 140/72 138/78 Pulse Oximetry 100 98 99 09/23/20 14:00 Temperature 98.9 F Pulse Rate 90 Respiratory Rate 16 Blood Pressure 136/98 H Pulse Oximetry 97 Intake/Output Intake/Output: Intake & Output 09/20/20 09/21/20 09/22/20 09/23/20 23:59 23:59 23:59 23:59 Intake Total 1150 2550 4510 2450 Output Total 1825 2000 1200 Balance 5565 601 6925 1250 Meds/Results Medications: Active Medications Generic Name Dose Route Start Last Admin Trade Name Freq PRN Reason Stop Dose Admin Acetaminophen 650 mg 09/23/20 11:45 Acetaminophen 325 Mg Tablet PO Q4H PRN Headache, pain 1-3 Atorvastatin Calcium 40 mg 09/23/20 09:25 09/23/20 11:28 Atorvastatin 40 Mg Tablet PO 40 mg DAILY JOSH Administration Hydromorphone HCl 0.5 mg 09/23/20 11:45 Hydromorphone Hcl Inj (*Crx) 1 Mg/Ml Syr IV PUSH Q3H PRN Pain Rated 7-10 Hydromorphone HCl 1 mg 09/23/20 11:45 Hydromorphone Hcl Inj (*Crx) 1 Mg/Ml Syr IV PUSH Q3H PRN Severe uncontrolled pain Metronidazole 500 mg in 100 mls @ 100 mls/hr 09/21/20 10:00 09/23/20 11:30 Flagyl 500 Mg/Iso Soln 100 Ml IVPB Infused Q6H JOSH Infusion Levofloxacin/Dextrose 750 mg in 150 mls @ 100 mls/hr 09/21/20 09:00 09/23/20 10:28 Levaquin 750 Mg/D5w 150 Ml IVPB Infused Q24H JOSH Infusion Loratadine/Pseudoephedrine Sulfate 1 tab 09/22/20 09:00 09/23/20 08:58 Loratadine/Pseudoephedrine (*Crx) 10/240 Mg Tablet Er 24 Hr PO 1 tab QAM JOSH Administration Ondansetron HCl 4 mg 09/20/20 22:28 09/23/20 03:21 Ondansetron Inj 4 Mg/2 Ml Vial IV PUSH 4 mg Q4H PRN Administration Nausea Pantoprazole Sodium 40 mg 09/21/20 09:00 09/23/20 08:57 Pantoprazole Sodium Iv 40 Mg Vial IV PUSH 40 mg Q12HR JOSH Administration Sertraline HCl 25 mg 09/23/20 09:25 09/23/20 11:28 Sertraline Hcl 25 Mg Tablet PO 25 mg QAM JOSH Administration Tramadol HCl 50 mg 09/23/20 11:45 Tramadol Hcl (*Crx) 50 Mg Tablet PO Q4H PRN Pain Rated 4-6 Zol
[2020-09-23 20:44] VITALS: BP 148/83; PULSE 84; RESP 18; TEMP 36.1; O2SAT 100
[2020-09-23] MEDS: traMADol HCL (*CRX) 50 MG TABLET PO (21:10)
[2020-09-23] MEDS: ZOLPIDEM TARTRATE (*CRX) 5 MG TABLET PO (21:10)
[2020-09-23 21:45] VITALS: PULSE 86; O2SAT 97
[2020-09-24] MEDS: metroNIDAZOLE 500 MG/ISO 100ML 500 MG/100 ML BAG 100 MG IVPB ×4 (04:51→22:11)
[2020-09-24 05:41] LABS: Basophils Absolute Auto 0.1 K/mm3 (0.0-0.1); Basophils Percent Auto 0.9 % (0.2-1.2); Eosinophils Absolute Auto 0.2 K/mm3 (0-0.3); Eosinophils Percent Auto 3.2 % (0-4.4); Hemoglobin 13.4 g/dL (14.0-18.0); Immature Granulocyte Absolute 0.05 K/mm3 (0.00-0.031); Immature Granulocyte Percent A 0.7 % (0-0.5); Lymphocytes Absolute Auto 0.99 K/mm3 (0.9-3.2); Lymphocytes Percent Auto 14.6 % (18.3-44.2); Mean Corpuscular HGB Conc 33.5 g/dl (32-36); Mean Corpuscular Hemoglobin 31.6 pg (26-34); Mean Corpuscular Volume 94.3 fl (80-100); Mean Platelet Volume 9.4 fl (7.4-10.4); Monocytes Absolute Auto 0.9 K/mm3 (0.1-0.6); Monocytes Percent Auto 13.4 % (2.6-8.5); Neutrophils Absolute Auto 4.6 K/mm3 (1.3-6.7); Neutrophils Percent Auto 67.2 % (45.5-73.1); Platelet Count Result 270 k/mm3 (150-375); Red Blood Count 4.24 M/mm3 (4.6-6.20); Red Cell Distribution Width 12.6 % (11.5-14.5); White Blood Count 6.8 K/mm3 (4.5-10.0)
[2020-09-24] MEDS: traMADol HCL (*CRX) 50 MG TABLET PO ×2 (05:54→13:00)
[2020-09-24 05:55] VITALS: BP 153/88; PULSE 81; RESP 16; TEMP 36.3; O2SAT 100
[2020-09-24 06:12] LABS: Alanine Aminotransferase 15 U/L (4-50); Albumin Level 3.8 g/dL (3.5-5.1); Alkaline Phosphatase 64 U/L (38-126); Anion Gap 8 mmol/L (8-16); Aspartate Amino Transferase 37 U/L (17-59); Bilirubin,Total 0.7 mg/dL (0.2-1.3); Blood Urea Nitrogen 8 mg/dL (9-20); CRP 13.5 mg/dL (<1.0); Calcium 9.3 mg/dL (8.4-10.2); Carbon Dioxide 27 mmol/L (22-30); Chloride 107 mmol/L (98-107); Estimated CRCL calculation 120 ml/min; Estimated Glomerular Filt Rate > 60; Glucose 109 mg/dL (75-110); Potassium 4.1 mmol/L (3.4-5.0); Sodium 142 mmol/L (137-145)
[2020-09-24] MEDS: HYDROmorphone HCL INJ (*CRX) 1 MG/ML SYR 0.5 MG IV PUSH ×3 (08:04→22:15)
[2020-09-24] MEDS: ONDANSETRON INJ 4 MG/2 ML VIAL IV PUSH ×3 (08:28→22:10)
[2020-09-24] MEDS: PANTOPRAZOLE SODIUM IV 40 MG VIAL IV PUSH ×2 (08:28→22:11)
[2020-09-24] MEDS: LORATADINE/PSEUDOEPHEDRINE (*CRX) 10/240 MG TABLET ER 24 HR 1 TAB PO (11:00)
[2020-09-24] MEDS: SERTRALINE HCL 25 MG TABLET PO (11:00)
[2020-09-24] MEDS: ATORVASTATIN 40 MG TABLET PO (11:00)
--- NOTE | 2020-09-24 11:52 | WPDGIPROGNO ---
Progress Note: A&P Assessment and Plan (1) Acute diverticulitis: Code(s): K57.92 - Diverticulitis of intestine, part unspecified, without perforation or abscess without bleeding Status: Acute Assessment and Plan: continue current treatment with pain management and iv antibiotic wbc normal last 2 days, crp elevated but trending down given severe pain this morning, probably wait another day before he can go home colonoscopy in few more weeks after acute infection gone (2) Leukocytosis: Code(s): D72.829 - Elevated white blood cell count, unspecified Status: Acute Assessment and Plan: on antibiotics, continue to monitor wbc normal last 2 days (3) Lower abdominal pain: Code(s): R10.30 - Lower abdominal pain, unspecified Status: Acute Assessment and Plan: on pain meds prn, improved after dose dilaudid this morning Subjective Date/time seen: 09/24/20 11:52 Interval history: earlier this morning had severe rlq pain but resolved now, lasted about 5 minutes also dry heaving. Overall much better now. Review of Systems Review of Systems: All systems reviewed & are unremarkable except as noted in HPI and below Exam Const: General: comfortable and no acute distress HENMT: General nose exam: Normal nares present Eyes: General: appearance normal, both eyes and all related structures Neck: Neck: supple Resp: Auscultation: clear to auscultation bilaterally Cardio: Rate: regular rate GI: Inspection: distended GI Palp: Yes Tenderness to palpation present (GI) (mild ttp in lower abdomen, no rebound or guarding) Auscultation: normal bowel sounds Skin: General skin exam: normal color Neuro: Speech: normal speech Motor exam (neuro): Normal motor muscle tone present throughout Extrem: General: normal to inspection Psych: Mental Status: mental status grossly normal Objective Data Vital Signs Vital Signs: Vital Signs - 24 hr 09/23/20 14:00 09/23/20 20:44 09/23/20 21:45 Temperature 98.9 F 97 F L Pulse Rate 90 84 86 Respiratory Rate 16 18 Blood Pressure 136/98 H 148/83 H Pulse Oximetry 97 100 97 09/24/20 05:55 Temperature 97.3 F L Pulse Rate 81 Respiratory Rate 16 Blood Pressure 153/88 H Pulse Oximetry 100 Intake/Output Intake/Output: Intake & Output 09/21/20 09/22/20 09/23/20 05/29/21 23:59 23:59 23:59 23:59 Intake Total 2550 4510 3640 550 Output Total 1825 2000 1200 800 Balance 725 2510 4440 -425 Meds/Results Medications: Active Medications Generic Name Dose Route Start Last Admin Trade Name Freq PRN Reason Stop Dose Admin Acetaminophen 650 mg 09/23/20 11:45 Acetaminophen 325 Mg Tablet PO Q4H PRN Headache, pain 1-3 Atorvastatin Calcium 40 mg 09/23/20 09:25 09/24/20 11:00 Atorvastatin 40 Mg Tablet PO 40 mg DAILY JOSH Administration Hydromorphone HCl 0.5 mg 09/23/20 11:45 09/24/20 08:04 Hydromorphone Hcl Inj (*Crx) 1 Mg/Ml Syr IV PUSH 0.5 mg Q3H PRN Administration Pain Rated 7-10 Hydromorphone HCl 1 mg 09/23/20 11:45 Hydromorphone Hcl Inj (*Crx) 1 Mg/Ml Syr IV PUSH Q3H PRN Severe uncontrolled pain Metronidazole 500 mg in 100 mls @ 100 mls/hr 09/21/20 10:00 09/24/20 10:15 Flagyl 500 Mg/Iso Soln 100 Ml IVPB 100 mls/hr Q6H JOSH Administration Levofloxacin/Dextrose 750 mg in 150 mls @ 100 mls/hr 09/21/20 09:00 09/24/20 10:16 Levaquin 750 Mg/D5w 150 Ml IVPB Infused Q24H JOSH Infusion Loratadine/Pseudoephedrine Sulfate 1 tab 09/22/20 09:00 09/24/20 11:00 Loratadine/Pseudoephedrine (*Crx) 10/240 Mg Tablet Er 24 Hr PO 1 tab QAM JOSH Administration Ondansetron HCl 4 mg 09/20/20 22:28 09/24/20 08:28 Ondansetron Inj 4 Mg/2 Ml Vial IV PUSH 4 mg Q4H PRN Administration Nausea Pantoprazole Sodium 40 mg 09/21/20 09:00 09/24/20 08:28 Pantoprazole Sodium Iv 40 Mg Vial IV PUSH 40 mg Q12HR JOSH Administration Sertraline HCl 25 mg
--- NOTE | 2020-09-24 12:54 | PM.IMPN ---
Progress Note: A&P Assessment and Plan (1) Diverticulitis of intestine with perforation without abscess: Code(s): K57.80 - Diverticulitis of intestine, part unspecified, with perforation and abscess without bleeding Status: Acute Assessment and Plan: Patient with lower abdominal pain, low-grade fever, leukocytosis in the setting of acute diverticulitis. Patient had sudden pain this morning and repeat CT scan with contrast was ordered which showed Sigmoid diverticulitis with new microperforation. No abscess. I consulted the surgeon, Dr. Stallworth, who recommends conservative treatment with continued IV antibiotics and put the patient on a clear liquid diet. Continue monitoring labs, pain control, and hill consult on the patient. GI was consulted and recommends continuing abx and will proceed with outpatient colonoscopy after acute infection improves. Continue monitoring. Appreciate GI and surgeries input. (2) HLD (hyperlipidemia): Code(s): E78.5 - Hyperlipidemia, unspecified Status: Acute Assessment and Plan: Continue statin. (3) Depression: Code(s): F32.9 - Major depressive disorder, single episode, unspecified Status: Acute Assessment and Plan: Continue SSRI. (4) Sleep apnea: Code(s): G47.30 - Sleep apnea, unspecified Status: Inactive Assessment and Plan: Continue home CPAP machine. Time Spent With Patient Time with patient: 25 - 35 minutes Subjective Date/time seen: 09/24/20 12:54 Interval history: Date of service 09/24/20: The patient states since 3:00 p.m. yesterday he was feeling well without any abdominal pain and eating without any issues. Then at 7:15 a.m. this morning he developed sharp stabbing severe pain similar to what brought him into the emergency room in the 1st place. He had sudden nausea and some dry heaves. He also was diaphoretic. He denied any fevers. He required IV Dilaudid to help better control his pain and antiemetics. He was found have a micro perforation from his diverticulitis. At this time his pain is controlled, he is eating a clear liquid diet and is feeling better. Denies any chest pain, shortness of breath, leg swelling, calf pain or any other symptoms at this time. Review of Systems Review of Systems: All systems reviewed & are unremarkable except as noted in HPI and below Exam Narrative: Exam Narrative: General: 45-year-old man sitting up in bed talking to his , appears to be comfortable at this time. In no acute distress. Skin: No jaundice or cyanosis. Good skin turgor. Neck: Full range of motion. Supple. Respiratory: Lungs are clear to auscultation bilaterally. No bony chest wall tenderness. Cardiovascular: The heart has a regular rate and rhythm without murmur. Lower extremities: No lower extremity edema. Distal pulses are easily palpated. No calf tenderness to palpation. Gastrointestinal: TTP of RLQ and LLQ more so RLQ. The abdomen is soft, nondistended with active bowel sounds. Psychiatric: Lucid and oriented. Memory intact. Neurologic: No focal deficits. Speech is clear. No facial drooping. Objective Data Vital Signs Vital Signs: Vital Signs - 24 hr 09/23/20 14:00 09/23/20 20:44 09/23/20 21:45 Temperature 98.9 F 97 F L Pulse Rate 90 84 86 Respiratory Rate 16 18 Blood Pressure 136/98 H 148/83 H Pulse Oximetry 97 100 97 09/24/20 05:55 Temperature 97.3 F L Pulse Rate 81 Respiratory Rate 16 Blood Pressure 153/88 H Pulse Oximetry 100 Intake/Output Intake/Output: Intake & Output 09/21/20 09/22/20 09/23/20 09/24/20 23:59 23:59 23:59 23:59 Intake Total 2550 4510 3640 550 Output Total 1825 2000 1200 800 Balance 725 2510 2440 -250 Meds/Results Medications: Active Medications
[2020-09-24 14:00] VITALS: BP 161/57; PULSE 76; RESP 16; TEMP 36.5; O2SAT 99
[2020-09-24] MEDS: HYDROmorphone HCL INJ (*CRX) 1 MG/ML SYR IV PUSH (14:19)
[2020-09-24] MEDS: KETOROLAC 30 MG/ML VIAL (*BKC) IV PUSH (16:33)
[2020-09-24] MEDS: LACTATED RINGERS 1,000 ML 100 ML IV CONT (16:35)
[2020-09-24 20:10] VITALS: BP 154/82; PULSE 62; RESP 16; TEMP 36; O2SAT 100
[2020-09-24] MEDS: ZOLPIDEM TARTRATE (*CRX) 5 MG TABLET PO (22:12)
[2020-09-24 23:50] VITALS: PULSE 76; O2SAT 98
[2020-09-25] MEDS: KETOROLAC 30 MG/ML VIAL (*BKC) IV PUSH ×5 (00:26→23:01)
[2020-09-25] MEDS: HYDROmorphone HCL INJ (*CRX) 1 MG/ML SYR 0.5 MG IV PUSH (01:15)
[2020-09-25] MEDS: metroNIDAZOLE 500 MG/ISO 100ML 500 MG/100 ML BAG 100 MG IVPB ×4 (04:02→21:51)
[2020-09-25] MEDS: LACTATED RINGERS 1,000 ML 100 ML IV CONT (04:02)
[2020-09-25 05:34] LABS: Basophils Absolute Auto 0.1 K/mm3 (0.0-0.1); Basophils Percent Auto 1.1 % (0.2-1.2); Eosinophils Absolute Auto 0.3 K/mm3 (0-0.3); Eosinophils Percent Auto 4.8 % (0-4.4); Hematocrit 41.7 % (42.0-52.0); Hemoglobin 13.7 g/dL (14.0-18.0); Immature Granulocyte Absolute 0.06 K/mm3 (0.00-0.031); Immature Granulocyte Percent A 0.9 % (0-0.5); Lymphocytes Absolute Auto 1.29 K/mm3 (0.9-3.2); Lymphocytes Percent Auto 19.4 % (18.3-44.2); Mean Corpuscular HGB Conc 32.9 g/dl (32-36); Mean Corpuscular Hemoglobin 31.7 pg (26-34); Mean Corpuscular Volume 96.5 fl (80-100); Mean Platelet Volume 9.8 fl (7.4-10.4); Neutrophils Absolute Auto 3.9 K/mm3 (1.3-6.7); Neutrophils Percent Auto 58.8 % (45.5-73.1); Platelet Count Result 244 k/mm3 (150-375); Red Blood Count 4.32 M/mm3 (4.6-6.20); Red Cell Distribution Width 12.4 % (11.5-14.5); White Blood Count 6.7 K/mm3 (4.5-10.0)
[2020-09-25 05:53] VITALS: BP 146/83; PULSE 71; RESP 16; TEMP 35.7; O2SAT 100
[2020-09-25 05:54] LABS: Alanine Aminotransferase 16 U/L (4-50); Albumin Level 3.8 g/dL (3.5-5.1); Alkaline Phosphatase 58 U/L (38-126); Anion Gap 6 mmol/L (8-16); Aspartate Amino Transferase 41 U/L (17-59); Bilirubin,Total 0.7 mg/dL (0.2-1.3); Blood Urea Nitrogen 11 mg/dL (9-20); CRP 5.6 mg/dL (<1.0); Calcium 9.5 mg/dL (8.4-10.2); Carbon Dioxide 28 mmol/L (22-30); Chloride 107 mmol/L (98-107); Estimated CRCL calculation 120 ml/min; Estimated Glomerular Filt Rate > 60; Glucose 101 mg/dL (75-110); Potassium 4.2 mmol/L (3.4-5.0); Sodium 141 mmol/L (137-145)
--- NOTE | 2020-09-25 07:33 | PM.CNGS ---
Assessment and Plan Assessment and plan (1) Diverticulitis of intestine with perforation without abscess: Code(s): K57.80 - Diverticulitis of intestine, part unspecified, with perforation and abscess without bleeding Status: Acute Assessment and Plan: long d/w pt re: conservative mgmt, cont IV abx, serial exams, restart clears and ADAT to low fiber diet History of Present Illness Consult details Consult date: 09/25/20 Reason for consult: abdominal pain Requesting physician: Cammy Smiley PA-C Narrative: Pt is a 45 y/o M that presented to hospital on 09/21 c/o lower abd pain. Workup, including imaging, was significant for acute diverticulitis. Pt admitted and started on IV abx. Pt was progressing slowly but well until yesterday. Pt had increased pain yesterday and repeat CT showed microperforation. Pt reports he has never had any previous episodes. Pt reports his pain is much improved this am. Review of Systems Constitutional: Constitutional: Reports anorexia, Reports body ache(s), Reports chills, Reports fatigue, Reports fever(s), Denies headache(s), Reports lethargy, Reports malaise, Denies night sweats, Reports poor appetite, Reports weakness, Denies weight gain and Denies weight loss Eyes: Eyes: Reports no additional eye complaints ENT: Reports system reviewed and no additional complaints, except as documented Cardiovascular: Cardiovascular: Reports no additional cardiovascular complaints Respiratory: Respiratory: Reports no additional respiratory complaints Gastrointestinal: Gastrointestinal: Reports as per HPI, Reports abdominal pain, Reports bloating, Reports GI cramping, Reports nausea and Denies vomiting Genitourinary: Genitourinary: Reports no additional male genitourinary complaints Musculoskeletal: Musculoskeletal: Reports no additional musculoskeletal complaints Integumentary/Breasts: Skin/Breast: Reports system reviewed and no additional complaints, except as docu Neurologic: Reports system reviewed and no additional complaints, except as documented Psychiatric: Psychiatric: Reports no additional psychiatric complaints Endocrine: Endocrine: Reports no additional endocrine complaints Hematologic/Lymphatic: Hematologic/Lymphatic: Reports no additional hematologic/lymphatic complaints Allergic/Immunologic: Allergic/Immunologic: Reports no additional allergic/immunologic complaints PMFSH Past Medical History Medical History Diverticulitis HLD (hyperlipidemia) Leukocytosis Lower abdominal pain Sleep apnea Surgical History Surgical History Hx of colonoscopy 2000, one polyp removed Hx of vasectomy Family History Family History Mother Family history of malignant neoplasm of uterus Father Afib Social History Social History Smoking status: Former smoker Tobacco type: cigarettes Smoking end date: 04/29/02 Alcohol intake: current Drinks per week: 12 Substance use: current Substance use type: marijuana Living arrangements: with family Occupation/Education: occupation Gender identity (if verbalized by the patient): Male Spiritual care concerns: No Meds Home Medications and Allergies Home Medications Medication Instructions Recorded Confirmed Type atorvastatin 40 mg PO DAILY 09/20/20 09/20/20 History sertraline 25 mg PO DAILY 09/20/20 09/20/20 History Allergies Allergy/AdvReac Type Severity Reaction Status Date / Time No Known Allergies Allergy Unknown Verified 09/20/20 23:43 Vital Signs Vital Signs - 24 hr 09/24/20 14:00 09/24/20 20:10 09/24/20 23:50 Temperature 36.5 C 36.0 C L Pulse Rate 76 62 76 Respiratory Rate 16 16 Blood Pressure 161/57 H 154/82 H Pulse Oximetry 99 100 98 09/25/20 05:53 Temperature 35.
[2020-09-25] MEDS: SERTRALINE HCL 25 MG TABLET PO (08:00)
[2020-09-25] MEDS: ATORVASTATIN 40 MG TABLET PO (08:00)
[2020-09-25] MEDS: LORATADINE/PSEUDOEPHEDRINE (*CRX) 10/240 MG TABLET ER 24 HR 1 TAB PO (08:00)
[2020-09-25] MEDS: PANTOPRAZOLE SODIUM IV 40 MG VIAL IV PUSH ×2 (08:01→21:51)
--- NOTE | 2020-09-25 12:13 | WPDGIPROGNO ---
Progress Note: A&P Assessment and Plan (1) Diverticulitis of intestine with perforation without abscess: Code(s): K57.80 - Diverticulitis of intestine, part unspecified, with perforation and abscess without bleeding Status: Acute Assessment and Plan: repeat CT scan reviewed, microperforation of acute diverticulitis. Surgery evaluated patient continue with medical management probably tomorrow can go home with oral antibiotics and then I can perform colonoscopy in 5-6 weeks (he had one but almost 20 years ago) (2) Leukocytosis: Code(s): D72.829 - Elevated white blood cell count, unspecified Status: Acute Assessment and Plan: resolved (3) Lower abdominal pain: Code(s): R10.30 - Lower abdominal pain, unspecified Status: Acute Assessment and Plan: pain free now Subjective Date/time seen: 09/25/20 12:13 Interval history: finally pain free for 24 hours, tolerated liquid diet. Review of Systems Review of Systems: All systems reviewed & are unremarkable except as noted in HPI and below Exam Const: General: comfortable and no acute distress HENMT: General nose exam: Normal nares present Eyes: General: appearance normal, both eyes and all related structures Neck: Neck: supple Resp: Auscultation: clear to auscultation bilaterally Cardio: Rate: regular rate GI: Inspection: non-distended GI Palp: No Tenderness to palpation present (GI) and No Guarding due to palpation present (GI) Auscultation: normal bowel sounds Skin: General skin exam: normal color Neuro: Speech: normal speech Motor exam (neuro): Normal motor muscle tone present throughout Extrem: General: normal to inspection Psych: Mental Status: mental status grossly normal Objective Data Vital Signs Vital Signs: Vital Signs - 24 hr 09/24/20 14:00 09/24/20 20:10 09/24/20 23:50 Temperature 97.7 F 96.8 F L Pulse Rate 76 62 76 Respiratory Rate 16 16 Blood Pressure 161/57 H 154/82 H Pulse Oximetry 99 100 98 09/25/20 05:53 Temperature 96.3 F L Pulse Rate 71 Respiratory Rate 16 Blood Pressure 146/83 H Pulse Oximetry 100 Intake/Output Intake/Output: Intake & Output 09/22/20 09/23/20 09/24/20 09/25/20 23:59 23:59 23:59 23:59 Intake Total 4510 3640 1050 1690 Output Total 1999 1200 1150 300 Balance 2510 2440 -100 1390 Meds/Results Medications: Active Medications Generic Name Dose Route Start Last Admin Trade Name Freq PRN Reason Stop Dose Admin Acetaminophen 650 mg 09/24/20 12:53 Acetaminophen 325 Mg Tablet PO Q4H PRN Headache, pain 1-3 , fever Atorvastatin Calcium 40 mg 09/23/20 09:25 09/25/20 08:00 Atorvastatin 40 Mg Tablet PO 40 mg DAILY JOSH Administration Hydralazine HCl 10 mg 09/24/20 15:38 Hydralazine Hcl 20 Mg/Ml Vial IV PUSH Q8H PRN Blood Pressure - High Hydromorphone HCl 0.5 mg 09/23/20 11:45 09/25/20 01:15 Hydromorphone Hcl Inj (*Crx) 1 Mg/Ml Syr IV PUSH 0.5 mg Q3H PRN Administration Pain Rated 7-10 Hydromorphone HCl 1 mg 09/23/20 11:45 09/24/20 14:19 Hydromorphone Hcl Inj (*Crx) 1 Mg/Ml Syr IV PUSH 1 mg Q3H PRN Administration Severe uncontrolled pain Metronidazole 500 mg in 100 mls @ 100 mls/hr 09/21/20 10:00 09/25/20 10:50 Flagyl 500 Mg/Iso Soln 100 Ml IVPB Infused Q6H JOSH Infusion Levofloxacin/Dextrose 750 mg in 150 mls @ 100 mls/hr 09/21/20 09:00 09/25/20 09:44 Levaquin 750 Mg/D5w 150 Ml IVPB Infused Q24H JOSH Infusion Ketorolac Tromethamine 30 mg 09/24/20 16:15 09/25/20 11:36 Ketorolac 30 Mg/Ml Vial (*Bkc) IV PUSH 30 mg Q6HR JOSH Administration Loratadine/Pseudoephedrine Sulfate 1 tab 09/22/20 09:00 09/25/20 08:00 Loratadine/Pseudoephedrine (*Crx) 10/240 Mg Tablet Er 24 Hr PO 1 tab QAM JOSH Administration Ondansetron HCl 4 mg 09/20/20 22:28 09/24/20 22:10 Ondansetron Inj 4 Mg/2 Ml Vial IV PUSH 4 mg Q4H PRN Administration
--- NOTE | 2020-09-25 12:16 | PM.IMPN ---
Progress Note: A&P Assessment and Plan (1) Diverticulitis of intestine with perforation without abscess: Code(s): K57.80 - Diverticulitis of intestine, part unspecified, with perforation and abscess without bleeding Status: Acute Assessment and Plan: Patient with lower abdominal pain, low-grade fever, leukocytosis in the setting of acute diverticulitis. 09/24/[address] scan with contrast was ordered which showed Sigmoid diverticulitis with new microperforation. No abscess. I consulted the surgeon, Dr. Stallworth, who recommends conservative treatment with continued IV antibiotics and put the patient on a clear liquid diet, and advance as tolerated. If patient is feeling better tomorrow, advance diet to Low Fiber, and can discharge at that time. GI was consulted and recommends continuing abx and will proceed with outpatient colonoscopy after acute infection improves. Continue monitoring. Appreciate GI and surgeries input. (2) HLD (hyperlipidemia): Code(s): E78.5 - Hyperlipidemia, unspecified Status: Acute Assessment and Plan: Continue statin. (3) Depression: Code(s): F32.9 - Major depressive disorder, single episode, unspecified Status: Acute Assessment and Plan: Continue SSRI. (4) Sleep apnea: Code(s): G47.30 - Sleep apnea, unspecified Status: Inactive Assessment and Plan: Continue home CPAP machine. Additional Plan Time Spent With Patient Time with patient: 25 - 35 minutes Subjective Date/time seen: 09/25/20 12:16 Interval history: Date of service 09/25/20: Patient is feeling much better today after getting Toradol scheduled every 6 hours. He denies any worsening pain, states right now he is not in any pain or discomfort, 0/10. Eating a clear liquid diet without any issues. Denies any fevers, chills, chest pain, shortness of breath, cough, nausea, vomiting, leg swelling, calf pain or any other symptoms at this time. Review of Systems Review of Systems: All systems reviewed & are unremarkable except as noted in HPI and below Exam Narrative: Exam Narrative: General: 45-year-old man walking back to bed from the bathroom, appears to be comfortable at this time. In no acute distress. Skin: No jaundice or cyanosis. Good skin turgor. Neck: Full range of motion. Supple. Respiratory: Lungs are clear to auscultation bilaterally. No bony chest wall tenderness. Cardiovascular: The heart has a regular rate and rhythm without murmur. Lower extremities: No lower extremity edema. Distal pulses are easily palpated. No calf tenderness to palpation. Gastrointestinal: The abdomen is soft, nontender, nondistended with active bowel sounds. Psychiatric: Lucid and oriented. Memory intact. Neurologic: No focal deficits. Speech is clear. No facial drooping. Objective Data Vital Signs Vital Signs: Vital Signs - 24 hr 09/24/20 14:00 09/24/20 20:10 09/24/20 23:50 Temperature 97.7 F 96.8 F L Pulse Rate 76 62 76 Respiratory Rate 16 16 Blood Pressure 161/57 H 154/82 H Pulse Oximetry 99 100 98 09/25/20 05:53 Temperature 96.3 F L Pulse Rate 71 Respiratory Rate 16 Blood Pressure 146/83 H Pulse Oximetry 100 Intake/Output Intake/Output: Intake & Output 09/22/20 09/23/20 09/24/20 09/25/20 23:59 23:59 23:59 23:59 Intake Total 4510 3640 1050 1690 Output Total 1999 1200 1150 300 Balance 2510 2440 -100 1390 Meds/Results Medications: Active Medications Generic Name Dose Route Start Last Admin Trade Name Freq PRN Reason Stop Dose Admin Acetaminophen 650 mg 09/24/20 12:53 Acetaminophen 325 Mg Tablet PO Q4H PRN Headache, pain 1-3 , fever Atorvastatin Calcium 40 mg 09/23/20 09:25 09/25/20 08:00 Atorvastatin 40 Mg Tablet
[2020-09-25 14:00] VITALS: BP 166/108; PULSE 72; RESP 14; TEMP 36; O2SAT 100
[2020-09-25] MEDS: hydrALAZINE HCL 20 MG/ML VIAL 10 MG IV PUSH (15:04)
[2020-09-25 16:12] VITALS: BP 151/94
[2020-09-25 21:28] VITALS: BP 156/98; PULSE 72; RESP 16; TEMP 36.2; O2SAT 97
[2020-09-26] MEDS: metroNIDAZOLE 500 MG/ISO 100ML 500 MG/100 ML BAG 100 MG IVPB (04:50)
[2020-09-26 04:58] VITALS: BP 174/103; PULSE 88; RESP 16; TEMP 36.2; O2SAT 100
[2020-09-26] MEDS: hydrALAZINE HCL 20 MG/ML VIAL 10 MG IV PUSH (05:03)
[2020-09-26] MEDS: KETOROLAC 30 MG/ML VIAL (*BKC) IV PUSH (05:03)
[2020-09-26 05:45] VITALS: BP 151/92
[2020-09-26] MEDS: ATORVASTATIN 40 MG TABLET PO (08:28)
[2020-09-26] MEDS: PANTOPRAZOLE SODIUM IV 40 MG VIAL IV PUSH (08:29)
[2020-09-26] MEDS: SERTRALINE HCL 25 MG TABLET PO (08:29)
[2020-09-26] MEDS: LORATADINE/PSEUDOEPHEDRINE (*CRX) 10/240 MG TABLET ER 24 HR 1 TAB PO (08:33)
--- NOTE | 2020-09-26 08:43 | PM.DS ---
DS: Admitting Diagnosis Admitting Diagnosis Admitting Diagnosis: Abd pain DS: Discharge Diagnosis Discharge Diagnosis (1) Diverticulitis of intestine with perforation without abscess: Code(s): K57.80 - Diverticulitis of intestine, part unspecified, with perforation and abscess without bleeding Status: Acute Assessment and Plan: Patient is a 45-year-old man with a history of hyperlipidemia, depression, presents to emergency room with abdominal pain. Patient woke up at 4:00 a.m. on Saturday09/20/20 with lower abdominal pain bilaterally. Initial vitals showed, he was afebrile, non tachycardic, elevated blood pressure 153/95, normal oxygenation on room air. Initial labs showed leukocytosis with at 16,400, with elevated neutrophils. CMP showed elevated total bilirubin at 1.6, elevated AST is 62. Normal ALT. Normal lipase. Urinalysis showed 1+ protein, 2+ ketones, 1+ blood, otherwise no acute signs of UTI. CT abdomen pelvis showed thickened sigmoid colon with surrounding inflammatory changes. Findings compatible with acute diverticulitis, although underlying infectious colitis or adenocarcinoma are not excluded. The patient was admitted into the hospital and started on IV antibiotics for coverage of diverticulitis, IV pain medications, IV antiemetics in a GI consultation for further evaluation and monitoring. The patient was slow to progress during hospitalization. He woke up on 09/24/2020 with severe, worse right lower quadrant abdominal pain. I repeated his CT abdomen/pelvis with contrast which showed Sigmoid diverticulitis with new microperforation. No abscess. I consulted the surgeon, Dr. Stallworth, who recommends conservative treatment with continued IV antibiotics and scheduled IV Toradol q6hrs. The patient was feeling much better 09/26/20 without much pain at all. Having bowel movements and tolerating a low fiber diet. The patient is stable at this time to be discharged home to continue PO antibiotics for a total of 14 days. Take OTC medications for pain. Return to ER warnings given. Patient understands and agrees with the plan all questions answered. GI recommends follow-up in 4 weeks for outpatient colonoscopy after acute infection resolves. (2) HLD (hyperlipidemia): Code(s): E78.5 - Hyperlipidemia, unspecified Status: Acute Assessment and Plan: Continue statin. (3) Depression: Code(s): F32.9 - Major depressive disorder, single episode, unspecified Status: Acute Assessment and Plan: Continue SSRI. (4) Sleep apnea: Code(s): G47.30 - Sleep apnea, unspecified Status: Inactive Assessment and Plan: Continue home CPAP machine. DS: Summary Hospital Course Hospital Course: See above Status at Discharge Cognitive/behavioral status at discharge: Stable, improved. Time Spent with Patient Time attestation: Total time spent providing and/or coordinating discharge services: 32 Time spent: Greater than 30 minutes Exam Narrative: Exam Narrative: General: 45-year-old man sitting up in bed watching TV. In no acute distress. Skin: No jaundice or cyanosis. Good skin turgor. Neck: Full range of motion. Supple. Respiratory: Lungs are clear to auscultation bilaterally. No bony chest wall tenderness. Cardiovascular: The heart has a regular rate and rhythm without murmur. Lower extremities: No lower extremity edema. Distal pulses are easily palpated. No calf tenderness to palpation. Gastrointestinal: The abdomen is soft, nontender, nondistended with active bowel sounds. Psychiatric: Lucid and oriented. Memory intact. Neurologic: No focal deficits. Speech is clear. No facial drooping. Discharge Plan Discharge Attending physician on discharge: Michael Cavanaugh M.A.
--- NOTE | 2020-09-26 10:19 | WPDGIPROGNO ---
Progress Note: A&P Assessment and Plan (1) Diverticulitis of intestine with perforation without abscess: Code(s): K57.80 - Diverticulitis of intestine, part unspecified, with perforation and abscess without bleeding Status: Acute Assessment and Plan: repeat CT scan reviewed, microperforation of acute diverticulitis. Surgery evaluated patient and continue conservative treatment he can go home today to complete oral antibiotics I will perform a colonoscopy in about 5 weeks (my office will set up appointment) (2) Leukocytosis: Code(s): D72.829 - Elevated white blood cell count, unspecified Status: Acute Assessment and Plan: resolved (3) Lower abdominal pain: Code(s): R10.30 - Lower abdominal pain, unspecified Status: Acute Assessment and Plan: pain free now Subjective Date/time seen: 09/26/20 10:19 Interval history: yesterday had small amount of blood with stool, today he is doing great, no pain and tolerating diet Review of Systems Review of Systems: All systems reviewed & are unremarkable except as noted in HPI and below Exam Const: General: comfortable and no acute distress HENMT: General nose exam: Normal nares present Eyes: General: appearance normal, both eyes and all related structures Neck: Neck: supple Resp: Auscultation: clear to auscultation bilaterally Cardio: Rate: regular rate GI: Inspection: non-distended GI Palp: No Tenderness to palpation present (GI) and No Guarding due to palpation present (GI) Auscultation: normal bowel sounds Skin: General skin exam: normal color Neuro: Speech: normal speech Motor exam (neuro): Normal motor muscle tone present throughout Extrem: General: normal to inspection Psych: Mental Status: mental status grossly normal Objective Data Vital Signs Vital Signs: Vital Signs - 24 hr 09/25/20 14:00 09/25/20 16:12 09/25/20 21:28 Temperature 96.8 F L 97.1 F L Pulse Rate 72 72 Respiratory Rate 14 16 Blood Pressure 166/108 H 151/94 H 156/98 H Pulse Oximetry 100 97 09/26/20 04:58 09/26/20 05:45 Temperature 97.2 F L Pulse Rate 88 Respiratory Rate 16 Blood Pressure 174/103 H 151/92 H Pulse Oximetry 100 Intake/Output Intake/Output: Intake & Output 09/23/20 09/24/20 09/25/20 05/31/21 23:59 23:59 23:59 23:59 Intake Total 3640 1050 2630 300 Output Total 1200 1150 575 300 Balance 2440 -100 2055 0 Meds/Results Medications: Active Medications Generic Name Dose Route Start Last Admin Trade Name Freq PRN Reason Stop Dose Admin Acetaminophen 650 mg 09/24/20 12:53 Acetaminophen 325 Mg Tablet PO Q4H PRN Headache, pain 1-3 , fever Atorvastatin Calcium 40 mg 09/23/20 09:25 09/26/20 08:28 Atorvastatin 40 Mg Tablet PO 40 mg DAILY JOSH Administration Hydralazine HCl 10 mg 09/24/20 15:38 09/26/20 05:03 Hydralazine Hcl 20 Mg/Ml Vial IV PUSH 10 mg Q8H PRN Administration Blood Pressure - High Hydromorphone HCl 0.5 mg 09/23/20 11:45 09/25/20 01:15 Hydromorphone Hcl Inj (*Crx) 1 Mg/Ml Syr IV PUSH 0.5 mg Q3H PRN Administration Pain Rated 7-10 Hydromorphone HCl 1 mg 09/23/20 11:45 09/24/20 14:19 Hydromorphone Hcl Inj (*Crx) 1 Mg/Ml Syr IV PUSH 1 mg Q3H PRN Administration Severe uncontrolled pain Metronidazole 500 mg in 100 mls @ 100 mls/hr 09/21/20 10:00 09/26/20 08:46 Flagyl 500 Mg/Iso Soln 100 Ml IVPB Not Given Q6H JOSH Ketorolac Tromethamine 30 mg 09/24/20 16:15 09/26/20 05:03 Ketorolac 30 Mg/Ml Vial (*Bkc) IV PUSH 30 mg Q6HR JOSH Administration Levofloxacin 750 mg 09/26/20 09:00 09/26/20 09:39 Levofloxacin Tab 750 Mg Tablet PO 750 mg DAILY JOSH Administration Loratadine/Pseudoephedrine Sulfate 1 tab 09/22/20 09:00 09/26/20 08:33 Loratadine/Pseudoephedrine (*Crx) 10/240 Mg Tablet Er 24 Hr PO 1 tab QAM JOSH Administration Ondansetron HCl 4 mg 09/20/20 22:28 09/24/20 22:1
--- NOTE | 2020-09-26 10:49 | PM.PNGS ---
Progress Note: A&P Assessment and Plan (1) Diverticulitis of intestine with perforation without abscess: Code(s): K57.80 - Diverticulitis of intestine, part unspecified, with perforation and abscess without bleeding Status: Acute Assessment and Plan: doing well, ok to dc home c po abx, low fiber diet, f/u 2 wks Subjective Subjective Date/Time Seen: 09/26/20 10:49 pt feels much better, no pain, porter low fiber diet Review of Systems Review of Systems: All systems reviewed & are unremarkable except as noted in HPI and below Exam Const: General: cooperative, comfortable and no acute distress Orientation/consciousness: patient oriented x3 Resp: Auscultation: clear to auscultation bilaterally Cardio: Rate: regular rate Rhythm: regular rhythm GI: Inspection: normal to inspection, non-distended and incision GI Palp: Yes Soft to palpation and No Tenderness to palpation present (GI) Objective Data Vital Signs Vital Signs: Vital Signs - 24 hr 09/25/20 14:00 09/25/20 16:12 09/25/20 21:28 Temperature 36.0 C L 36.2 C L Pulse Rate 72 72 Respiratory Rate 14 16 Blood Pressure 166/108 H 151/94 H 156/98 H Pulse Oximetry 100 97 09/26/20 04:58 09/26/20 05:45 Temperature 36.2 C L Pulse Rate 88 Respiratory Rate 16 Blood Pressure 174/103 H 151/92 H Pulse Oximetry 100 Intake/Output Intake/Output: Intake & Output 09/23/20 09/24/20 09/25/20 09/26/20 23:59 23:59 23:59 23:59 Intake Total 3640 1050 2630 300 Output Total 1200 1150 575 300 Balance 2440 -100 2055 0 Meds/Results Radiology Results: ITS Impressions Abdomen/Pelvis CT 09/24/20 12:18 IMPRESSION: 1. Sigmoid diverticulitis with new microperforation. No abscess. Quality VTE Prophylaxis VTE prophylaxis: mechanical ordered
== END 2020-09-26 10:25 | disposition home or self-care (01) | DRG 392 ==
LOC: ANHED 22:17 → ANH3MED 09-21 00:40
PROVIDERS: Emergency Medicine; Admitting Provider Internal Medicine; Emergency Provider Emergency Medicine; PCP Registered Nurse; Visit Provider Physician Assistant
DX: K57.80 Diverticulitis of intestine, part unspecified, with perforation and abscess without bleeding (principal); E78.5 Hyperlipidemia, unspecified; F32.9 Major depressive disorder, single episode, unspecified; Z86.010 Personal history of colon polyps; G47.30 Sleep apnea, unspecified; Z87.891 Personal history of nicotine dependence; F12.90 Cannabis use, unspecified, uncomplicated; K58.9 Irritable bowel syndrome, unspecified
CPT/HCPCS: 36415; 74177; 80053; 81001; 82248; 83690; 85025; 86140; 87045; 87046; 87427; 96361; 96365; 96375; 99285; A9270; C9113; J0131; J0360; J0696; J1170; J1885; J1956; J2405; J2550; J7030; J7120; Q9967

== ENCOUNTER 2020-11-09 00:50 | Day surgery (SDC) | payer OTHER, SELFPAY ==
[2020-10-26 13:20] VITALS: BMI 31.6
--- NOTE | 2020-11-09 08:39 | WPDANESEPPF ---
Anes - Initial Pre Proc Eval Procedure: Operation Date: 11/09/20 10:15 Proposed Procedures p Colonoscopy - Nixon Vasquez MD Date/Time: 11/09/20 08:39 Surgeon: Nixon Vasquez MD Pre Op Diagnosis: Diverticulitis Patient Data Age: 45 Gender: M Height: 1.78 m Weight: 100 kg Allergies Allergy/AdvReac Type Severity Reaction Status Date / Time No Known Allergies Allergy Unknown Verified 11/09/20 09:42 Home Medications Medication Instructions Recorded Confirmed Type atorvastatin 40 mg PO DAILY 09/20/20 10/26/20 History sertraline 25 mg PO DAILY 09/20/20 10/26/20 History [id number] 1 cap PO DAILY 10/26/20 10/26/20 History [krill oil] multivit with min-folic acid 1 tablet PO DAILY 10/26/20 10/26/20 History [Adult One Daily Multivitamin] psyllium seed (sugar) [Fiber 1 tbsp PO DAILY 10/26/20 10/26/20 History Supplement] Patient hx anesthesia problems: none Family hx anesthesia problems: none PMFSH Past Medical History Medical History (Updated 11/09/20 @ 08:40 by Liban Morse MD) Back pain Depression Diverticulitis HLD (hyperlipidemia) Hypercholesterolemia Leukocytosis Lower abdominal pain Obesity Sleep apnea Surgical History Surgical History Hx of colonoscopy 2000, one polyp removed Hx of vasectomy Family History Family History Mother Family history of malignant neoplasm of uterus Father Afib Social History Social History Smoking status: Former smoker Tobacco type: cigarettes Smoking end date: 04/29/02 Alcohol intake: current Drinks per week: 7 Substance use: current Substance use type: marijuana Living arrangements: with family Gender identity (if verbalized by the patient): Male Spiritual care concerns: No Anes - Eval Final PreProcedure Day of Procedure 11/09/20 08:39 Patient weight: obese Heart: regular rate and rhythm Lungs: clear to auscultation and normal air movement Airway: Mallampati scale class II Neurological: alert and oriented Last oral intake: >/= 8 hours ASA classification: III Emergent: no Anesthetic plan: proceed Anesthesia type and monitoring: general GIVS Informed Consent: The patient's anesthetic plan and its attendant risks and benefits were discussed with the patient/family/POA. Questions were solicited and answers provided to the satisfaction of the patient/family/POA.
[2020-11-09 09:43] VITALS: BP 129/94; PULSE 72; RESP 18; TEMP 36.2; O2SAT 96
[2020-11-09] MEDS: LACTATED RINGERS 1,000 ML 150 ML IV CONT (09:53)
--- NOTE | 2020-11-09 10:27 | PM.HPGS ---
History of Present Illness History of Present Illness Consent: Risks, benefits, and alternatives have been discussed and questions answered. Patient agrees to proceed with procedure. Chief complaint: Diverticulitis Narrative: Luis Felipe Chun is a 45 year old male with first episode of diverticulitis about 5-6 weeks ago, had colonoscopy about 20 years ago. Review of Systems Constitutional: Constitutional: Denies headache(s) and Denies weakness Eyes: Eyes: Denies blurry vision ENT: Reports Normal hearing present, Denies headache(s) and Denies neck pain Cardiovascular: Cardiovascular: Denies chest pain and Denies dyspnea Respiratory: Respiratory: Denies dyspnea Gastrointestinal: Gastrointestinal: Reports no additional gastrointestinal complaints Genitourinary: Genitourinary: Denies dysuria Musculoskeletal: Musculoskeletal: Denies neck pain Integumentary/Breasts: Skin/Breast: Denies dry skin Neurologic: Reports Normal hearing present, Denies headache(s) and Denies weakness Psychiatric: Psychiatric: Denies anxiety Endocrine: Endocrine: Denies change in body appearance Hematologic/Lymphatic: Hematologic/Lymphatic: Denies easy bleeding Allergic/Immunologic: Allergic/Immunologic: Denies urticaria PMFSH Past Medical History Medical History (Updated 11/09/20 @ 08:40 by Liban Morse MD) Back pain Depression Diverticulitis HLD (hyperlipidemia) Hypercholesterolemia Leukocytosis Lower abdominal pain Obesity Sleep apnea Surgical History Surgical History Hx of colonoscopy 2000, one polyp removed Hx of vasectomy Family History Family History Mother Family history of malignant neoplasm of uterus Father Afib Social History Social History Smoking status: Former smoker Tobacco type: cigarettes Smoking end date: 04/29/02 Alcohol intake: current Drinks per week: 7 Substance use: current Substance use type: marijuana Living arrangements: with family Gender identity (if verbalized by the patient): Male Spiritual care concerns: No Meds Home Medications and Allergies Home Medications Medication Instructions Recorded Confirmed Type atorvastatin 40 mg PO DAILY 09/20/20 10/26/20 History sertraline 25 mg PO DAILY 09/20/20 10/26/20 History [id number] 1 cap PO DAILY 10/26/20 10/26/20 History [krill oil] multivit with min-folic acid 1 tablet PO DAILY 10/26/20 10/26/20 History [Adult One Daily Multivitamin] psyllium seed (sugar) [Fiber 1 tbsp PO DAILY 10/26/20 10/26/20 History Supplement] Allergies Allergy/AdvReac Type Severity Reaction Status Date / Time No Known Allergies Allergy Unknown Verified 11/09/20 09:42 Vital Signs Vital Signs - 24 hr 11/09/20 09:43 Temperature 97.2 F L Pulse Rate 72 Respiratory Rate 18 Blood Pressure 129/94 H Pulse Oximetry 96 Exam Const: General: comfortable and no acute distress HENMT: General nose exam: Normal nares present Eyes: General: appearance normal, both eyes and all related structures Neck: Neck: no JVD Resp: Auscultation: clear to auscultation bilaterally Cardio: Rate: regular rate Rhythm: regular rhythm GI: Inspection: non-distended GI Palp: Yes Soft to palpation Skin: General skin exam: normal color Neuro: General: gait normal Speech: normal speech Extrem: General: normal to inspection Psych: Mental Status: mental status grossly normal Assessment and Plan Assessment and plan (1) Diverticulitis of intestine with perforation without abscess: Code(s): K57.80 - Diverticulitis of intestine, part unspecified, with perforation and abscess without bleeding Status: Acute Assessment and Plan: resolved, now will assess with colonoscopy
[2020-11-09 10:54] VITALS: BP 131/96; PULSE 68; RESP 24; O2SAT 98
== END 2020-11-09 11:20 | disposition home or self-care (01) ==
PROVIDERS: PCP Nurse Practitioner Family; Visit Provider Internal Medicine Gastroenterology
PROC: 0DJD8ZZ Inspection of Lower Intestinal Tract, Via Natural or Artificial Opening Endoscopic (ICD-10-PCS; CPT 45378; principal; 2020-11-09 10:15)
DX: K57.30 Diverticulosis of large intestine without perforation or abscess without bleeding (principal); D12.5 Benign neoplasm of sigmoid colon; K64.8 Other hemorrhoids; Z87.19 Personal history of other diseases of the digestive system; E78.5 Hyperlipidemia, unspecified; G47.30 Sleep apnea, unspecified; F32.9 Major depressive disorder, single episode, unspecified; E66.9 Obesity, unspecified; Z68.32 Body mass index [BMI] 32.0-32.9, adult; Z87.891 Personal history of nicotine dependence; F12.90 Cannabis use, unspecified, uncomplicated
CPT/HCPCS: 45385; 88305; J2704; J7120

== ENCOUNTER 2021-04-12 13:19 | Inpatient (IN) | payer OTHER, SELFPAY ==
[2021-04-12] VITALS (8 sets, daily range): BP systolic 119–127; BP diastolic 70–81; PULSE 64–93; RESP 12–21; TEMP 36.1; O2SAT 96–100
--- NOTE | ~2021-04-12 | CT_ITS ---
EXAMINATION: CT abdomen pelvis w con DATE: 04/12/2021 18:52 INDICATION: Right lower quadrant pain TECHNIQUE: Computed tomography (CT) of the abdomen and pelvis was performed with 100 cc Omnipaque 350 intravenous contrast. The dose-length product was 1213.92 mGy-cm. Automated exposure control and ite rative reconstruction technique were employed. COMPARISON: CT dated 09/24/2020. FINDINGS: Lung bases are unremarkable. Heart size is normal. No significant pleural or pericardial ef fusion. No significant vascular abnormality. No lymphadenopathy. Fatty infiltration of the liver. Small subcentimeter hypodensity left hepatic lobe, most likely benig n. The spleen, pancreas, adrenal glands and kidneys are unremarkable. No hydronephrosis. Gallbladder is present. There is abnormal thickening of the sigmoid colon with surrounding pericolonic inflammati on, consistent with acute diverticulitis. No evidence for perforation or abscess. No bowel obstructio n. There is fluid-filled small bowel which is nondilated, most likely ileus. No acute osseous abnorma lity. Mild lower lumbar spondylosis. IMPRESSION: 1. Acute uncomplicated sigmoid diverticulitis. Reviewed, dictated and finalized at location [facility] [facility] [facility]
[2021-04-12] MEDS: SODIUM CHLORIDE 0.9% IV 1,000 ML 999 ML IV CONT (18:09)
[2021-04-12] MEDS: ONDANSETRON INJ 4 MG/2 ML VIAL IV PUSH (18:09)
[2021-04-12] MEDS: MORPHINE SULFATE (*CRX) 4 MG/ML INJ IV PUSH ×2 (18:09→20:42)
[2021-04-12 18:34] LABS: Alanine Aminotransferase 55 U/L (4-50); Albumin Level 4.6 g/dL (3.5-5.1); Alkaline Phosphatase 64 U/L (38-126); Anion Gap 16 mmol/L (8-16); Aspartate Amino Transferase 67 U/L (17-59); Bilirubin,Total 1.9 mg/dL (0.2-1.3); Blood Urea Nitrogen 12 mg/dL (9-20); Calcium 9.2 mg/dL (8.4-10.2); Carbon Dioxide 20 mmol/L (22-30); Chloride 104 mmol/L (98-107); Estimated CRCL calculation 116 ml/min; Estimated Glomerular Filt Rate > 60; Glucose 81 mg/dL (65-110); Potassium 3.9 mmol/L (3.4-5.0); Sodium 140 mmol/L (137-145)
[2021-04-12 18:35] LABS: Basophils Absolute Auto 0.1 K/mm3 (0.0-0.1); Basophils Percent Auto 0.5 % (0.2-1.2); Eosinophils Absolute Auto 0.1 K/mm3 (0-0.3); Eosinophils Percent Auto 0.4 % (0-4.4); Hematocrit 42.9 % (42.0-52.0); Hemoglobin 14.3 g/dL (14.0-18.0); Immature Granulocyte Absolute 0.07 K/mm3 (0.00-0.031); Immature Granulocyte Percent A 0.5 % (0-0.5); Mean Corpuscular HGB Conc 33.3 g/dl (32-36); Mean Corpuscular Hemoglobin 32.3 pg (26-34); Mean Corpuscular Volume 96.8 fl (80-100); Mean Platelet Volume 9.5 fl (7.4-10.4); Monocytes Absolute Auto 1.6 K/mm3 (0.1-0.6); Monocytes Percent Auto 11.5 % (2.6-8.5); Neutrophils Absolute Auto 10.9 K/mm3 (1.3-6.7); Neutrophils Percent Auto 79.1 % (45.5-73.1); Platelet Count Result 248 k/mm3 (150-375); Red Blood Count 4.43 M/mm3 (4.6-6.20); Red Cell Distribution Width 13.1 % (11.5-14.5); White Blood Count 13.8 K/mm3 (4.5-10.0)
--- NOTE | 2021-04-12 19:55 | ED.ABDPAIN ---
HPI - Abdominal Pain General Chief Complaint: Abdominal Pain Stated Complaint: abd pain Time Seen by Provider: 04/12/21 16:59 History of Present Illness HPI narrative: Patient is a 45-year-old male who presents to the ER with lower abdominal pain. Ongoing over the last week. He has been taking Cipro and Flagyl due to history of diverticulitis. Pain is not improved. Worse in the right lower quadrant. No radiation. He has had some loose stools. Pain is worse with any type of movement. Related Data Home Medications Medication Instructions Recorded Confirmed atorvastatin 40 mg PO DAILY 09/20/20 10/26/20 sertraline 25 mg PO DAILY 09/20/20 10/26/20 [id number] 1 cap PO DAILY 10/26/20 10/26/20 [krill oil] multivit with min-folic acid 1 tablet PO DAILY 10/26/20 10/26/20 [Adult One Daily Multivitamin] psyllium seed (sugar) [Fiber 1 tbsp PO DAILY 10/26/20 10/26/20 Supplement] Allergies Allergy/AdvReac Type Severity Reaction Status Date / Time No Known Allergies Allergy Unknown Verified 04/12/21 17:53 Review of Systems Review of Systems: All systems reviewed & are unremarkable except as noted in HPI and below Constitutional: Constitutional: Denies chills, Denies fever(s) and Denies weakness ENT: Denies nasal congestion and Denies sore throat Cardiovascular: Cardiovascular: Denies chest pain, Denies rapid heart rate and Denies radiating jaw, neck or arm pain Respiratory: Respiratory: Denies cough, Denies dyspnea and Denies wheezing Gastrointestinal: Gastrointestinal: Reports abdominal pain, Reports diarrhea, Denies nausea and Denies vomiting Genitourinary: Genitourinary: Denies dysuria and Denies urinary frequency [facility] Past Medical History Medical History (Updated 04/12/21 @ 21:35 by Franky Carvajal MD) Back pain Depression Diverticulitis HLD (hyperlipidemia) Hypercholesterolemia Leukocytosis Lower abdominal pain Obesity Sleep apnea Surgical History Surgical History Hx of colonoscopy 2000, one polyp removed Hx of vasectomy Family History Family History Mother Family history of malignant neoplasm of uterus Father Afib Social History Social History Smoking status: Former smoker Tobacco type: cigarettes Smoking end date: 04/29/02 Alcohol intake: current Drinks per week: 7 Substance use: current Substance use type: marijuana Gender identity (if verbalized by the patient): Male Spiritual care concerns: No Exam Narrative: GENERAL: Well-appearing, well-nourished, and in no acute distress. HEAD: Normocephalic, atraumatic. CHEST: Clear to auscultation. No respiratory distress. HEART: Regular rate and rhythm. No murmur heard. Normal peripheral pulses. ABDOMEN: Soft, tender palpation bilateral lower quadrants right greater than left, nondistended, normal active bowel sounds. EXTREMITIES: Normal range of motion. No edema. SKIN: Warm, dry, no rash. NEURO: Alert and oriented x3. PSYCH: Normal mood and affect. Course Course Emergency Course: Admit to hospital service for IV antibiotics given failure of outpatient treatment for diverticulitis. Vital Signs Vital signs: Vital Signs Temperature 96.9 F L 04/12/21 13:21 Pulse Rate 93 04/12/21 13:21 Respiratory Rate 14 04/12/21 13:21 Blood Pressure 124/80 04/12/21 13:21 Pulse Oximetry 100 04/12/21 13:21 Temperature 96.9 F L 04/12/21 13:21 Pulse Rate 64 04/12/21 21:15 Respiratory Rate 20 04/12/21 21:15 Blood Pressure 127/73 04/12/21 21:15 Pulse Oximetry 97 04/12/21 21:15 MDM - Abdominal Pain Lab Data Result diagrams: 04/12/21 18:06 04/12/21 18:06 Labs: Lab Results 04/12/21 04/12/21 Range/Units 18:06 18:06 WBC 13.8 H (4.5-10.0) K/mm3 RBC 4.43 L (4.6-6.20) M/
--- NOTE | 2021-04-12 23:35 | ADMGEN ---
This patient, Luis Felipe Chun, was admitted to 2 Medical Room 260-. Patient/family oriented to hospital policies and general routines including ID bracelet, bed and alarms, visiting hours, pain management, procedures, bathroom and other care routines, personal items, smoking policy, room service/diet, and visiting hours. Information on how to activate the Rapid Response Team has been discussed. Patient/Family are encouraged to report perceived risks to care and to ask questions if they do not understand what they are told or what they should do.
[2021-04-13] VITALS: BP 170/78; PULSE 77; RESP 20; TEMP 36.3; O2SAT 99; BMI 35.0
[2021-04-13] MEDS: MORPHINE SULFATE (*CRX) 2 MG/ML INJ IV PUSH ×7 (00:50→22:13)
--- NOTE | 2021-04-13 02:03 | PM.IMHP ---
H&P: HPI History of Present Illness Date/Time: 04/13/21 02:03 Chief Complaint: Abdominal pain Narrative: Patient is a 45-year-old male who presents to the ER with lower abdominal pain. The pain is ongoing since past week. Located in right lower quadrant to suprapubic area. The pain is constant and dull aching in character. He has had similar pain in the past back in August when she was admitted with diverticulitis with micro perforation. He had a mild attack in November when he saw his regular physician and was given Cipro and Flagyl however did not take that antibiotic as the pain resolved spontaneously. He started taking the same Cipro and Flagyl that was prescribed in November about a week ago for his abdominal pain. He has some nausea but no vomiting. He denies having any fever but did have some shivering chills day before yesterday. He has been a on clear liquids since a week and has not been eating as much. He did have lose bowel movement yesterday without any blood in there. With ongoing pain and non resolution he came to the ER for evaluation. CT abdomen and pelvis shows acute diverticulitis in the sigmoid colon. Review of Systems Review of Systems: - CONSTITUTIONAL: Denies weight loss, fever and reports chills. - HEENT: Denies changes in vision and hearing - RESPIRATORY: Denies SOB and cough. - CV: Denies palpitations and CP. - GI: Reports abdominal pain, nausea, denies vomiting and diarrhea. - : Denies dysuria and urinary frequency. - MSK: Reports myalgia and denies joint pain. - SKIN: Denies rash and pruritus. - NEUROLOGICAL: Denies headache and syncope. - PSYCHIATRIC: Denies recent changes in mood. Denies anxiety and depression. All systems reviewed & are unremarkable except as noted in HPI and below Constitutional: Constitutional: Reports fatigue and Reports weakness Neurologic: Reports weakness Endocrine: Endocrine: Reports fatigue PMFSH Past Medical History Medical History (Updated 04/12/21 @ 21:35 by Franky Carvajal MD) Back pain Depression Diverticulitis HLD (hyperlipidemia) Hypercholesterolemia Leukocytosis Lower abdominal pain Obesity Sleep apnea Surgical History Surgical History Hx of colonoscopy 2000, one polyp removed Hx of vasectomy Family History Family History Mother Family history of malignant neoplasm of uterus Father Afib Social History Social History Smoking status: Current some day smoker Tobacco type: cigarettes Smokeless tobacco user: other Smoking end date: 04/29/02 Alcohol intake: current Drinks per week: 7 Substance use: current Substance use type: marijuana Last use: 04/08/21 Gender identity (if verbalized by the patient): Male Spiritual care concerns: No Meds Home Medications and Allergies Home Medications Medication Instructions Recorded Confirmed Type atorvastatin 40 mg PO DAILY 09/20/20 04/12/21 History sertraline 25 mg PO DAILY 09/20/20 04/12/21 History dqakp-dsrpu-2-ktq-vta-wfqsub 1 cap PO DAILY 10/26/20 04/12/21 History [krill oil] multivit with min-folic acid 1 tablet PO DAILY 10/26/20 04/12/21 History [Adult One Daily Multivitamin] psyllium seed (sugar) [Fiber 1 tbsp PO DAILY 10/26/20 04/12/21 History Supplement] cetirizine-pseudoephedrine 1 tablet PO 04/12/21 History [Zyrtec-D] Allergies Allergy/AdvReac Type Severity Reaction Status Date / Time No Known Allergies Allergy Unknown Verified 04/12/21 17:53 Vital Signs Vital Signs - 24 hr 04/12/21 13:21 04/12/21 17:58 04/12/21 19:27 Temperature 96.9 F L Pulse Rate 93 84 88 Respiratory Rate 14 16 16 Blood Pressure 124/80 125/81 121/74 Pulse Oximetry 100 99 98 04/12/21 19:31 04/12/21 20:30 04/12/21 21:15 Temperature Pulse Rate 74 72 64 Respiratory Rate 20
[2021-04-13] MEDS: SODIUM CHLORIDE 0.9% IV 1,000 ML 100 ML IV CONT ×2 (02:45→13:08)
[2021-04-13 06:00] VITALS: BP 134/81; PULSE 62; RESP 18; TEMP 36.1; O2SAT 96
[2021-04-13 06:01] LABS: Basophils Absolute Auto 0.1 K/mm3 (0.0-0.1); Basophils Percent Auto 0.4 % (0.2-1.2); Eosinophils Absolute Auto 0.1 K/mm3 (0-0.3); Eosinophils Percent Auto 0.9 % (0-4.4); Hematocrit 40.7 % (42.0-52.0); Hemoglobin 13.4 g/dL (14.0-18.0); Immature Granulocyte Absolute 0.06 K/mm3 (0.00-0.031); Immature Granulocyte Percent A 0.5 % (0-0.5); Lymphocytes Absolute Auto 1.12 K/mm3 (0.9-3.2); Lymphocytes Percent Auto 9.6 % (18.3-44.2); Mean Corpuscular HGB Conc 32.9 g/dl (32-36); Mean Corpuscular Hemoglobin 31.9 pg (26-34); Mean Corpuscular Volume 96.9 fl (80-100); Mean Platelet Volume 9.6 fl (7.4-10.4); Monocytes Absolute Auto 1.4 K/mm3 (0.1-0.6); Monocytes Percent Auto 11.6 % (2.6-8.5); Platelet Count Result 240 k/mm3 (150-375); White Blood Count 11.7 K/mm3 (4.5-10.0)
[2021-04-13 06:15] LABS: Alanine Aminotransferase 44 U/L (4-50); Albumin Level 4.2 g/dL (3.5-5.1); Alkaline Phosphatase 56 U/L (38-126); Anion Gap 8 mmol/L (8-16); Aspartate Amino Transferase 55 U/L (17-59); Bilirubin,Total 2.2 mg/dL (0.2-1.3); Blood Urea Nitrogen 12 mg/dL (9-20); Calcium 8.6 mg/dL (8.4-10.2); Carbon Dioxide 21 mmol/L (22-30); Chloride 105 mmol/L (98-107); Estimated CRCL calculation 120 ml/min; Estimated Glomerular Filt Rate > 60; Glucose 83 mg/dL (65-110); Potassium 3.8 mmol/L (3.4-5.0); Sodium 134 mmol/L (137-145)
--- NOTE | 2021-04-13 08:45 | PCRCNOTE ---
Pt stated that his would be bringing in his home CPAP unit sometime today. The nurse has been notified and will notify resp to help set pt up this evening.
[2021-04-13 08:46] VITALS: O2SAT 97
--- NOTE | 2021-04-13 08:55 | PC.NURSE ---
call to pharm, PO meds not available on floor
[2021-04-13 13:50] VITALS: BP 127/78; PULSE 57; RESP 20; TEMP 36.3; O2SAT 98
--- NOTE | 2021-04-13 14:00 | PM.IMPN ---
Progress Note: A&P Assessment and Plan (1) Acute diverticulitis: Code(s): K57.92 - Diverticulitis of intestine, part unspecified, without perforation or abscess without bleeding Status: Acute Assessment and Plan: -history of sigmoid diverticulitis August 2020 with micro perforation followed up with GI and underwent underwent colonoscopy which showed diverticulosis -acute uncomplicated sigmoid diverticulitis 2nd episode fail Cipro and Flagyl as an outpatient. Zosyn IV q.6 hours as ordered IV fluid IV morphine p.r.n. IV Zofran clear liquid diet monitor clinical course (2) HLD (hyperlipidemia): Code(s): E78.5 - Hyperlipidemia, unspecified Status: Acute Assessment and Plan: continue Lipitor (3) Depression: Code(s): F32.9 - Major depressive disorder, single episode, unspecified Status: Acute Assessment and Plan: continue Zoloft Subjective Date/time seen: 04/13/21 14:00 Interval history: Pt is a 45 yo male w/ hx of anxiety, depression, and diverticulitis, admitted to the hospital for acute diverticulitis. Today he states he is still having right lower abdominal pain that radiates to his left lower quadrant. No nausea or vomiting. He states he had chills and bodyaches yesterday but this has resolved. No cp, sob. No fevers. Review of Systems Review of Systems: General: Denies fevers, + chills, + bodyaches, + fatigue Eyes: Denies vision changes or eye pain ENT: Denies nasal congestion or sore throat Respiratory: Denies cough or shortness of breath Cardiovascular: Denies chest pain, palpitations, or lower extremity edema Gastrointestinal: + abdominal pain, no vomiting or diarrhea Genitourinary: Denies dysuria or urinary frequency Musculoskeletal: Denies back pain or muscle aches Neurological: Denies headache, paraesthesias, or motor weakness Integumentary: Denies rash or other skin lesions Exam Narrative: General: No acute distress, non toxic appearing Eyes: PERRL, no scleral icterus HEENT: NCAT, external ears normal, MMM Respiratory: No respiratory distress, Lungs CTA bilaterally, no wheezing Cardiovascular: RRR, no murmur Abdominal: Soft, mild diffuse ttp, non distended, no rebound or guarding, normoactive bowel sounds Musculoskeletal: Moves all 4 extremities, no edema Neurological: A/Ox3, speech normal, no facial asymmetry Skin: Warm, dry, no rashes Psychiatric: Normal affect, normal mood Objective Data Vital Signs Vital Signs: Vital Signs - 24 hr 04/12/21 17:58 04/12/21 19:27 04/12/21 19:31 Temperature Pulse Rate 84 88 74 Respiratory Rate 16 16 20 Blood Pressure 125/81 121/74 125/78 Pulse Oximetry 99 98 97 04/12/21 20:30 04/12/21 21:15 04/12/21 21:16 Temperature Pulse Rate 72 64 79 Respiratory Rate 12 20 21 H Blood Pressure 125/76 127/73 127/73 Pulse Oximetry 98 97 98 04/12/21 22:01 04/13/21 00:00 04/13/21 06:00 Temperature 97.4 F L 97.0 F L Pulse Rate 65 77 62 Respiratory Rate 21 H 20 18 Blood Pressure 119/70 170/78 H 134/81 Pulse Oximetry 96 99 96 04/13/21 08:46 Temperature Pulse Rate Respiratory Rate Blood Pressure Pulse Oximetry 97 Intake/Output Intake/Output: Intake & Output 04/10/21 04/11/21 04/12/21 04/13/21 23:59 23:59 23:59 23:59 Intake Total 1050 1738 Output Total 400 Balance 1050 1338 Meds/Results Medications: Active Medications Generic Name Dose Route Start Last Admin Trade Name Freq PRN Reason Stop Dose Admin Atorvastatin Calcium 40 mg 04/13/21 09:00 Atorvastatin 40 Mg Tablet PO DAILY [facility] Enoxaparin Sodium 40 mg 04/13/21 09:15 Enoxaparin 40 Mg/0.4 Ml Syringe SUB-Q DAILY [facility] Piperacillin/Tazobactam/Dextrose 3.375 gm in 50 mls @ 100 mls/hr 04/13/21 02:00 04/13/21 13:07 Zosyn 3.375 Gm/D5w 50ml Pm IVPB 100 mls/hr Q6H [facility] Administration Sodium Chloride 1,000 mls @ 100 mls/hr 04/13/21 02:30 04/13/21 13:08 Normal Saline
[2021-04-13 20:46] VITALS: BP 127/89; PULSE 61; RESP 18; TEMP 36.8; O2SAT 99
[2021-04-14] VITALS: BP 152/93; PULSE 70; RESP 20; TEMP 36.6; O2SAT 100
[2021-04-14] MEDS: SODIUM CHLORIDE 0.9% IV 1,000 ML 100 ML IV CONT ×2 (02:33→18:21)
[2021-04-14 04:36] VITALS: BP 122/78; PULSE 62; RESP 20; TEMP 36.2; O2SAT 99
[2021-04-14] MEDS: MORPHINE SULFATE (*CRX) 2 MG/ML INJ IV PUSH ×7 (04:43→23:34)
[2021-04-14 05:26] LABS: Basophils Percent Auto 0.5 % (0.2-1.2); Eosinophils Absolute Auto 0.1 K/mm3 (0-0.3); Eosinophils Percent Auto 1.9 % (0-4.4); Hematocrit 40.1 % (42.0-52.0); Hemoglobin 13.1 g/dL (14.0-18.0); Immature Granulocyte Absolute 0.04 K/mm3 (0.00-0.031); Immature Granulocyte Percent A 0.5 % (0-0.5); Lymphocytes Absolute Auto 1.31 K/mm3 (0.9-3.2); Lymphocytes Percent Auto 17.6 % (18.3-44.2); Mean Corpuscular HGB Conc 32.7 g/dl (32-36); Mean Corpuscular Hemoglobin 31.5 pg (26-34); Mean Corpuscular Volume 96.4 fl (80-100); Mean Platelet Volume 9.2 fl (7.4-10.4); Monocytes Percent Auto 12.7 % (2.6-8.5); Neutrophils Percent Auto 66.8 % (45.5-73.1); Platelet Count Result 259 k/mm3 (150-375); Red Blood Count 4.16 M/mm3 (4.6-6.20); Red Cell Distribution Width 12.7 % (11.5-14.5); White Blood Count 7.5 K/mm3 (4.5-10.0)
[2021-04-14 05:56] LABS: Alanine Aminotransferase 36 U/L (4-50); Alkaline Phosphatase 63 U/L (38-126); Anion Gap 9 mmol/L (8-16); Aspartate Amino Transferase 49 U/L (17-59); Bilirubin,Total 1.4 mg/dL (0.2-1.3); Blood Urea Nitrogen 6 mg/dL (9-20); Calcium 8.7 mg/dL (8.4-10.2); Carbon Dioxide 22 mmol/L (22-30); Chloride 106 mmol/L (98-107); Estimated CRCL calculation 136 ml/min; Estimated Glomerular Filt Rate > 60; Glucose 107 mg/dL (65-110); Potassium 3.9 mmol/L (3.4-5.0); Sodium 137 mmol/L (137-145)
[2021-04-14 13:45] VITALS: BP 148/82; PULSE 73; RESP 18; TEMP 36.4; O2SAT 100
--- NOTE | 2021-04-14 14:46 | PM.IMPN ---
Progress Note: A&P Assessment and Plan (1) Acute diverticulitis: Code(s): K57.92 - Diverticulitis of intestine, part unspecified, without perforation or abscess without bleeding Status: Acute Assessment and Plan: Pt is here for acute sigmoid diverticulitis as per CT abdomen. Pt failed out patient ciprofloxacin and flagyl, pt is on IV zosyn day 2 here. WCC are nl. DC fluids encourage clear liquid. This is patient second bout of diverticulitis pt had colonoscopy in October, which showed diverticulosis, colonic polyps and internal hemorrhoids. Pt is improving, continue current treatment hopeful home in 1-2 days time. (2) HLD (hyperlipidemia): Code(s): E78.5 - Hyperlipidemia, unspecified Status: Acute Assessment and Plan: Chronic and stable. Continue Lipitor (3) Depression: Code(s): F32.9 - Major depressive disorder, single episode, unspecified Status: Acute Assessment and Plan: Chronic and stable. Continue Zoloft Subjective Date/time seen: 04/14/21 14:46 Interval history: 45 year old Pt is here for acute sigmoid diverticulitis. Pt having ongoing abdominal pains similar admission in June with diverticulitis. Pt is tolerating clear diet but is having difficult having a bowel movement. Review of Systems Review of Systems: All systems reviewed & are unremarkable except as noted in HPI and below Exam Narrative: General: alert awake talkative Respiratory: Lungs are clear Cardiovascular: RRR, no murmur Abdominal: Soft, TTP over lower left quadrant Musculoskeletal: Moves all 4 extremities, no edema Neurological: Oriented x3, no focal neurological deficits Skin: Warm, dry, no rashes Psychiatric: Normal affect, normal mood Objective Data Vital Signs Vital Signs: Vital Signs - 24 hr 04/13/21 20:46 04/14/21 00:00 04/14/21 04:36 Temperature 36.8 C 36.6 C 36.2 C L Pulse Rate 61 70 62 Respiratory Rate 18 20 20 Blood Pressure 127/89 152/93 H 122/78 Pulse Oximetry 99 100 99 04/14/21 13:45 Temperature 36.4 C Pulse Rate 73 Respiratory Rate 18 Blood Pressure 148/82 H Pulse Oximetry 100 Intake/Output Intake/Output: Intake & Output 04/11/21 04/12/21 04/13/21 04/14/21 23:59 23:59 23:59 23:59 Intake Total 1050 4058 740 Output Total 1000 Balance 1050 3058 740 Meds/Results Medications: Active Medications Generic Name Dose Route Start Last Admin Trade Name Freq PRN Reason Stop Dose Admin Atorvastatin Calcium 40 mg 04/13/21 09:00 04/14/21 08:30 Atorvastatin 40 Mg Tablet PO Not Given DAILY [facility] Enoxaparin Sodium 40 mg 04/13/21 09:15 04/14/21 08:31 Enoxaparin 40 Mg/0.4 Ml Syringe SUB-Q Not Given DAILY [facility] Piperacillin/Tazobactam/Dextrose 3.375 gm in 50 mls @ 100 mls/hr 04/13/21 02:00 04/14/21 08:54 Zosyn 3.375 Gm/D5w 50ml Pm IVPB Infused Q6H [facility] Infusion Sodium Chloride 1,000 mls @ 75 mls/hr 04/13/21 02:30 04/14/21 02:33 Normal Saline Iv IV CONT 100 mls/hr .[id number] [facility] Administration Morphine Sulfate 2 mg 04/13/21 12:34 04/14/21 11:44 Morphine Sulfate (*Crx) 2 Mg/Ml Inj IV PUSH 2 mg Q2H PRN Administration Pain Rated 7-10 Multivitamins/Calcium 1 tablet 04/13/21 09:00 04/14/21 08:31 Therapeutic Multivitamins/Minerals Tab (*Bkc) PO Not Given DAILY [facility] Non-Formulary Medication 1 cap 04/13/21 09:00 Ganer-[id number]-7-Ipp-Jai-Bolsqm [Krill Oil] PO 05/13/21 08:59 DAILY [facility] Ondansetron HCl 4 mg 04/13/21 02:26 Ondansetron Inj 4 Mg/2 Ml Vial IV PUSH Q4H PRN Nausea And Vomiting Psyllium Hydrophilic Mucilloid 1 packet 04/13/21 09:00 04/14/21 08:31 Psyllium Powder Packet BY MOUTH Not Given DAILY [facility] Sertraline HCl 25 mg 04/13/21 09:00 04/14/21 08:31 Sertraline Hcl 25 Mg Tablet PO Not Given DAILY [facility] Radiology Results: ITS Impressions Abdomen/Pelvis CT 04/12/21 18:54 IMPRESSION: 1. Acute uncomplicate
[2021-04-14 20:36] VITALS: BP 147/91; PULSE 57; RESP 16; TEMP 36.1; O2SAT 100
[2021-04-15] MEDS: MORPHINE SULFATE (*CRX) 2 MG/ML INJ IV PUSH ×6 (03:00→23:18)
[2021-04-15 04:58] VITALS: BP 130/58; PULSE 94; RESP 20; TEMP 36.6; O2SAT 98
[2021-04-15] MEDS: THERAPEUTIC MULTIVITAMINS/MINERALS TAB (*BKC) 1 TABLET PO (10:17)
[2021-04-15] MEDS: ATORVASTATIN 40 MG TABLET PO (10:17)
[2021-04-15] MEDS: ENOXAPARIN 40 MG/0.4 ML SYRINGE SUB-Q (10:17)
[2021-04-15] MEDS: SERTRALINE HCL 25 MG TABLET PO (10:17)
[2021-04-15] MEDS: PSYLLIUM POWDER PACKET 1 PACKET BY MOUTH (10:18)
--- NOTE | 2021-04-15 13:18 | PM.IMPN ---
Progress Note: A&P Assessment and Plan (1) Acute diverticulitis: Code(s): K57.92 - Diverticulitis of intestine, part unspecified, without perforation or abscess without bleeding Status: Acute Assessment and Plan: -history of sigmoid diverticulitis August 2020 with micro perforation followed up with GI and underwent underwent colonoscopy which showed diverticulosis -acute uncomplicated sigmoid diverticulitis 2nd episode -Failed Cipro and Flagyl PO as an outpatient. -Zosyn IV q.6 hours, on day 3 here -Tolerating clears well, will dc IVF at this time, advance diet as tolerated (2) HLD (hyperlipidemia): Code(s): E78.5 - Hyperlipidemia, unspecified Status: Acute Assessment and Plan: Chronic and stable. Continue Lipitor (3) Depression: Code(s): F32.9 - Major depressive disorder, single episode, unspecified Status: Acute Assessment and Plan: Chronic and stable. Continue Zoloft Subjective Date/time seen: 04/15/21 13:18 Interval history: Pt is a 45 yo male w/ hx of anxiety, depression, and diverticulitis, admitted to the hospital for acute diverticulitis. He states his pain is improving, 2/10 currently. Has been tolerating clears well. Still has not had a bowel movement. Review of Systems Review of Systems: General: Denies fevers Eyes: Denies vision changes ENT: Denies nasal congestion or sore throat Respiratory: Denies cough or shortness of breath Cardiovascular: Denies chest pain or lower extremity edema Gastrointestinal: + abdominal pain, denies vomiting or diarrhea, +constipation Genitourinary: Denies dysuria Musculoskeletal: Denies back pain Neurological: Denies headache or motor weakness Integumentary: Denies rash Exam Narrative: General: No acute distress, non toxic appearing Eyes: PERRL, no scleral icterus HEENT: NCAT, external ears normal, MMM Respiratory: No respiratory distress, Lungs CTA bilaterally, no wheezing Cardiovascular: RRR, no murmur Abdominal: Soft, mild RLQ ttp, non distended, no rebound or guarding, hypoactive bowel sounds Musculoskeletal: Moves all 4 extremities, no edema Neurological: A/Ox3, speech normal, no facial asymmetry Skin: Warm, dry, no rashes Psychiatric: Normal affect, normal mood Objective Data Vital Signs Vital Signs: Vital Signs - 24 hr 04/14/21 13:45 04/14/21 20:36 04/15/21 04:58 Temperature 97.6 F 97.0 F L 97.9 F Pulse Rate 73 57 L 94 Respiratory Rate 18 16 20 Blood Pressure 148/82 H 147/91 H 130/58 L Pulse Oximetry 100 100 98 Intake/Output Intake/Output: Intake & Output 04/12/21 04/13/21 04/14/21 04/15/21 23:59 23:59 23:59 23:59 Intake Total 1050 4058 3120 2179 Output Total 1000 400 Balance 1050 3058 2720 2179 Meds/Results Medications: Active Medications Generic Name Dose Route Start Last Admin Trade Name Freq PRN Reason Stop Dose Admin Atorvastatin Calcium 40 mg 04/13/21 09:00 04/15/21 10:17 Atorvastatin 40 Mg Tablet PO 40 mg DAILY [facility] Administration Enoxaparin Sodium 40 mg 04/13/21 09:15 04/15/21 10:17 Enoxaparin 40 Mg/0.4 Ml Syringe SUB-Q 40 mg DAILY [facility] Administration Piperacillin/Tazobactam/Dextrose 3.375 gm in 50 mls @ 100 mls/hr 04/13/21 02:00 04/15/21 11:00 Zosyn 3.375 Gm/D5w 50ml Pm IVPB Infused Q6H [facility] Infusion Morphine Sulfate 2 mg 04/13/21 12:34 04/15/21 10:19 Morphine Sulfate (*Crx) 2 Mg/Ml Inj IV PUSH 2 mg Q2H PRN Administration Pain Rated 7-10 Multivitamins/Calcium 1 tablet 04/13/21 09:00 04/15/21 10:17 Therapeutic Multivitamins/Minerals Tab (*Bkc) PO 1 tablet DAILY [facility] Administration Non-Formulary Medication 1 cap 04/13/21 09:00 [id number]-[id number] [Krill Oil] PO 05/13/21 08:59 DAILY [facility] Ondansetron HCl 4 mg 04/13/21 02:26 Ondansetron Inj 4 Mg/2 Ml Vial IV PUSH Q4H PRN Nausea And Vomiting Psyllium Hydrophilic Mucilloid 1 packet
[2021-04-15 14:00] VITALS: BP 120/84; PULSE 71; RESP 14; TEMP 36.6; O2SAT 100
[2021-04-15 22:22] VITALS: BP 128/86; PULSE 59; RESP 16; TEMP 36.3; O2SAT 98
[2021-04-16 06:00] VITALS: BP 133/85; PULSE 61; RESP 14; TEMP 36.6; O2SAT 99
[2021-04-16] MEDS: MORPHINE SULFATE (*CRX) 2 MG/ML INJ IV PUSH (06:43)
[2021-04-16 07:00] LABS: Basophils Absolute Auto 0.1 K/mm3 (0.0-0.1); Basophils Percent Auto 1.1 % (0.2-1.2); Eosinophils Absolute Auto 0.2 K/mm3 (0-0.3); Eosinophils Percent Auto 2.5 % (0-4.4); Hematocrit 42.3 % (42.0-52.0); Immature Granulocyte Absolute 0.04 K/mm3 (0.00-0.031); Immature Granulocyte Percent A 0.6 % (0-0.5); Lymphocytes Absolute Auto 1.59 K/mm3 (0.9-3.2); Lymphocytes Percent Auto 25.3 % (18.3-44.2); Mean Corpuscular HGB Conc 33.1 g/dl (32-36); Mean Corpuscular Hemoglobin 31.5 pg (26-34); Mean Corpuscular Volume 95.1 fl (80-100); Mean Platelet Volume 9.2 fl (7.4-10.4); Monocytes Absolute Auto 0.8 K/mm3 (0.1-0.6); Monocytes Percent Auto 12.6 % (2.6-8.5); Neutrophils Absolute Auto 3.6 K/mm3 (1.3-6.7); Neutrophils Percent Auto 57.9 % (45.5-73.1); Platelet Count Result 303 k/mm3 (150-375); Red Blood Count 4.45 M/mm3 (4.6-6.20); Red Cell Distribution Width 12.4 % (11.5-14.5); White Blood Count 6.3 K/mm3 (4.5-10.0)
[2021-04-16 07:10] LABS: Alanine Aminotransferase 35 U/L (4-50); Albumin Level 4.3 g/dL (3.5-5.1); Alkaline Phosphatase 59 U/L (38-126); Anion Gap 9 mmol/L (8-16); Aspartate Amino Transferase 50 U/L (17-59); Bilirubin,Total 0.9 mg/dL (0.2-1.3); Blood Urea Nitrogen 7 mg/dL (9-20); Calcium 9.6 mg/dL (8.4-10.2); Carbon Dioxide 28 mmol/L (22-30); Chloride 104 mmol/L (98-107); Estimated CRCL calculation 108 ml/min; Estimated Glomerular Filt Rate > 60; Glucose 106 mg/dL (65-110); Potassium 4.2 mmol/L (3.4-5.0); Sodium 141 mmol/L (137-145)
[2021-04-16] MEDS: ENOXAPARIN 40 MG/0.4 ML SYRINGE SUB-Q (09:00)
[2021-04-16] MEDS: ATORVASTATIN 40 MG TABLET PO (09:00)
[2021-04-16] MEDS: THERAPEUTIC MULTIVITAMINS/MINERALS TAB (*BKC) 1 TABLET PO (09:00)
[2021-04-16] MEDS: PSYLLIUM POWDER PACKET 1 PACKET BY MOUTH (09:00)
[2021-04-16] MEDS: SERTRALINE HCL 25 MG TABLET PO (09:00)
--- NOTE | 2021-04-16 11:28 | PM.IMPN ---
Progress Note: A&P Assessment and Plan (1) Acute diverticulitis: Code(s): K57.92 - Diverticulitis of intestine, part unspecified, without perforation or abscess without bleeding Status: Acute Assessment and Plan: -history of sigmoid diverticulitis August 2020 with micro perforation followed up with GI and underwent underwent colonoscopy which showed diverticulosis -acute uncomplicated sigmoid diverticulitis 2nd episode -Failed Cipro and Flagyl PO as an outpatient. -Zosyn IV q.6 hours, on day 4 here -Continue advancing diet -hopefully discharge tomorrow after 5 days of IV abx, will send home on PO meds x 5 more days (2) HLD (hyperlipidemia): Code(s): E78.5 - Hyperlipidemia, unspecified Status: Acute Assessment and Plan: Chronic and stable. Continue Lipitor (3) Depression: Code(s): F32.9 - Major depressive disorder, single episode, unspecified Status: Acute Assessment and Plan: Chronic and stable. Continue Zoloft Subjective Date/time seen: 04/16/21 11:28 Interval history: Pt is a 45 yo male w/ hx of anxiety, depression, and diverticulitis, admitted to the hospital for acute diverticulitis. He states his pain is improving, 2/10 currently. He is now on low fiber diet and is tolerating it well. He has had 2-3 episodes of loose stools today. Slept better last night. No nausea or vomiting. Review of Systems Review of Systems: General: Denies fevers Eyes: Denies vision changes ENT: Denies nasal congestion or sore throat Respiratory: Denies cough or shortness of breath Cardiovascular: Denies chest pain or lower extremity edema Gastrointestinal: + abdominal pain, denies vomiting or diarrhea, +diarrhea Genitourinary: Denies dysuria Musculoskeletal: Denies back pain Neurological: Denies headache or motor weakness Integumentary: Denies rash Exam Narrative: General: No acute distress, non toxic appearing Eyes: PERRL, no scleral icterus HEENT: NCAT, external ears normal, MMM Respiratory: No respiratory distress, Lungs CTA bilaterally, no wheezing Cardiovascular: RRR, no murmur Abdominal: Soft, non tender, non distended, no rebound or guarding, positive bowel sounds Musculoskeletal: Moves all 4 extremities, no edema Neurological: A/Ox3, speech normal, no facial asymmetry Skin: Warm, dry, no rashes Psychiatric: Normal affect, normal mood Objective Data Vital Signs Vital Signs: Vital Signs - 24 hr 04/15/21 14:00 04/15/21 22:22 04/16/21 06:00 Temperature 97.8 F 97.4 F L 97.9 F Pulse Rate 71 59 L 61 Respiratory Rate 14 16 14 Blood Pressure 120/84 128/86 133/85 Pulse Oximetry 100 98 99 Intake/Output Intake/Output: Intake & Output 04/13/21 04/14/21 04/15/21 04/16/21 23:59 23:59 23:59 23:59 Intake Total 4058 3120 3769 50 Output Total 1000 400 Balance 3058 1050 3769 50 Meds/Results Medications: Active Medications Generic Name Dose Route Start Last Admin Trade Name Freq PRN Reason Stop Dose Admin Hydrocodone Bitart/Acetaminophen 1 tab 04/16/21 07:15 Hydrocodone/Acetaminophen (*Crx) 5-325 Mg Tablet PO Q4H PRN Pain Rated 4-6 Atorvastatin Calcium 40 mg 04/13/21 09:00 04/16/21 09:00 Atorvastatin 40 Mg Tablet PO 40 mg DAILY [facility] Administration Enoxaparin Sodium 40 mg 04/13/21 09:15 04/16/21 09:00 Enoxaparin 40 Mg/0.4 Ml Syringe SUB-Q 40 mg DAILY [facility] Administration Piperacillin/Tazobactam/Dextrose 3.375 gm in 50 mls @ 100 mls/hr 04/13/21 02:00 04/16/21 09:00 Zosyn 3.375 Gm/D5w 50ml Pm IVPB 100 mls/hr Q6H [facility] Administration Morphine Sulfate 2 mg 04/13/21 12:34 04/16/21 06:43 Morphine Sulfate (*Crx) 2 Mg/Ml Inj IV PUSH 2 mg Q2H PRN Administration Pain Rated 7-10 Multivitamins/Calcium 1 tablet 04/13/21 09:00 04/16/21 09:00 Therapeutic Multivitamins/Minerals Tab (*Bkc) PO 1 tablet DAILY [facility] Administration Non-Formulary Medication 1 cap 03/29
[2021-04-16] MEDS: HYDROcodone/acetaminophen (*CRX) 5-325 MG TABLET 1 TAB PO ×2 (14:11→20:30)
[2021-04-16 14:45] VITALS: BP 125/91; PULSE 81; RESP 18; TEMP 36.4; O2SAT 99
[2021-04-17] VITALS: BP 128/64; PULSE 56; RESP 16; TEMP 36.6; O2SAT 96
[2021-04-17 05:25] LABS: Basophils Absolute Auto 0.1 K/mm3 (0.0-0.1); Basophils Percent Auto 1.1 % (0.2-1.2); Eosinophils Absolute Auto 0.2 K/mm3 (0-0.3); Eosinophils Percent Auto 2.8 % (0-4.4); Hemoglobin 15.1 g/dL (14.0-18.0); Immature Granulocyte Absolute 0.08 K/mm3 (0.00-0.031); Immature Granulocyte Percent A 1.1 % (0-0.5); Lymphocytes Absolute Auto 1.81 K/mm3 (0.9-3.2); Lymphocytes Percent Auto 24.4 % (18.3-44.2); Mean Corpuscular HGB Conc 32.8 g/dl (32-36); Mean Corpuscular Hemoglobin 31.8 pg (26-34); Mean Corpuscular Volume 96.8 fl (80-100); Mean Platelet Volume 9.4 fl (7.4-10.4); Monocytes Absolute Auto 0.9 K/mm3 (0.1-0.6); Monocytes Percent Auto 11.6 % (2.6-8.5); Neutrophils Absolute Auto 4.4 K/mm3 (1.3-6.7); Platelet Count Result 334 k/mm3 (150-375); Red Blood Count 4.75 M/mm3 (4.6-6.20); Red Cell Distribution Width 12.4 % (11.5-14.5); White Blood Count 7.4 K/mm3 (4.5-10.0)
[2021-04-17 05:43] LABS: Alanine Aminotransferase 42 U/L (4-50); Albumin Level 4.6 g/dL (3.5-5.1); Alkaline Phosphatase 58 U/L (38-126); Anion Gap 8 mmol/L (8-16); Aspartate Amino Transferase 62 U/L (17-59); Bilirubin,Total 0.8 mg/dL (0.2-1.3); Blood Urea Nitrogen 9 mg/dL (9-20); Calcium 9.8 mg/dL (8.4-10.2); Carbon Dioxide 25 mmol/L (22-30); Chloride 104 mmol/L (98-107); Estimated CRCL calculation 108 ml/min; Estimated Glomerular Filt Rate > 60; Glucose 103 mg/dL (65-110); Potassium 4.4 mmol/L (3.4-5.0); Sodium 137 mmol/L (137-145)
[2021-04-17 05:51] VITALS: BP 122/85; PULSE 71; RESP 16; TEMP 36.6; O2SAT 99
[2021-04-17] MEDS: THERAPEUTIC MULTIVITAMINS/MINERALS TAB (*BKC) 1 TABLET PO (09:09)
[2021-04-17] MEDS: SERTRALINE HCL 25 MG TABLET PO (09:09)
[2021-04-17] MEDS: ATORVASTATIN 40 MG TABLET PO (09:09)
[2021-04-17] MEDS: PSYLLIUM POWDER PACKET 1 PACKET BY MOUTH (09:10)
[2021-04-17] MEDS: ENOXAPARIN 40 MG/0.4 ML SYRINGE SUB-Q (09:10)
--- NOTE | 2021-04-17 09:46 | PM.DS ---
DS: Admitting Diagnosis Discharge Date 04/17/21 Admitting Diagnosis diverticulitis DS: Discharge Diagnosis Discharge Diagnosis (1) Acute diverticulitis: Code(s): K57.92 - Diverticulitis of intestine, part unspecified, without perforation or abscess without bleeding Status: Acute Assessment and Plan: -history of sigmoid diverticulitis August 2020 with micro perforation, followed up with GI and underwent underwent colonoscopy which showed diverticulosis -CT on admission shows acute uncomplicated sigmoid diverticulitis 2nd episode -Failed Cipro and Flagyl PO as an outpatient. -Received 5 days of IV Zosyn -He is doing well, his pain has resolved and he is having bowel movements -Tolerating regular diet -vitals are stable, pt is well appearing in no distress, labs are unremarkable -will send home on PO meds x 5 more days to complete a full 10 day course -outpatient GI follow up in 1 week -All questions and concerns addressed, pt being discharged home in stable condition (2) HLD (hyperlipidemia): Code(s): E78.5 - Hyperlipidemia, unspecified Status: Acute Assessment and Plan: Chronic and stable. Continued Lipitor (3) Depression: Code(s): F32.9 - Major depressive disorder, single episode, unspecified Status: Acute Assessment and Plan: Chronic and stable. Continued Zoloft DS: Summary Hospital Course Reason for hospitalization: Pt is a 45 yo male w/ hx of anxiety, depression, and diverticulitis, admitted to the hospital for acute diverticulitis. Please see HPI for further details. Hospital Course: Please see above for details of hospital course. Status at Discharge Cognitive/behavioral status at discharge: stable Functional status at discharge: independent ambulation Overall status at discharge: patient is progressing back to baseline Time Spent with Patient Time attestation: Total time spent providing and/or coordinating discharge services: 35 Time spent: Greater than 30 minutes Exam Narrative: General: No acute distress, non toxic appearing Eyes: PERRL, no scleral icterus HEENT: NCAT, external ears normal, MMM Respiratory: No respiratory distress, Lungs CTA bilaterally, no wheezing Cardiovascular: RRR, no murmur Abdominal: Soft, non tender, non distended, no rebound or guarding, positive bowel sounds Musculoskeletal: Moves all 4 extremities, no edema Neurological: A/Ox3, speech normal, no facial asymmetry Skin: Warm, dry, no rashes Psychiatric: Normal affect, normal mood DS: Data Data Completed and Pending Labs on day of discharge: Labs from last 24 hours 04/17/21 04/17/21 04:48 04:48 WBC 7.4 RBC 4.75 Hgb 15.1 Hct 46.0 MCV 96.8 MCH 31.8 MCHC 32.8 RDW 12.4 Plt Count 334 MPV 9.4 Immature Gran % (Auto) 1.1 H Neut % (Auto) 59.0 Lymph % (Auto) 24.4 [place] % (Auto) 11.6 H Eos % (Auto) 2.8 Baso % (Auto) 1.1 Lymph # (Auto) 1.81 [place] # (Auto) 0.9 H Eos # (Auto) 0.2 Baso # (Auto) 0.1 Abs Immat Gran (auto) 0.08 H Absolute Neuts (auto) 4.4 Absolute Nucleated RBC 0.0 Nucleated RBC % 0.0 Sodium 137 Potassium 4.4 Chloride 104 Carbon Dioxide 25 Anion Gap 8 BUN 9 Creatinine 0.90 Estim Creat Clear Calc 108 Estimated GFR > 60 Glucose 103 Calcium 9.8 Total Bilirubin 0.8 AST 62 H ALT 42 Alkaline Phosphatase 58 Total Protein 8.0 Albumin 4.6 Discharge Plan Discharge Attending physician on discharge: Tricia Arechiga Discharging Clinician: Lisa Martin Anticipated Discharge Date/Time: 04/17/21 09:50 Patient Disposition: Home, Self-Care Activity: may shower Diet: high fiber Discharge Instructions: Complete all antibiotics as directed. You may take Tylenol for pain and I will send a small prescription of narcotics to use for breakthrough pain. You should maintain a high fiber diet and avoid small things
== END 2021-04-17 11:54 | disposition home or self-care (01) | DRG 392 ==
LOC: ANHED 21:35 → ANH3MEDSUR 22:37 → ANH2MED 22:56
PROVIDERS: Physician Assistant; Admitting Provider Internal Medicine; Emergency Provider Emergency Medicine; PCP Nurse Practitioner; Visit Provider Family Medicine
DX: K57.32 Diverticulitis of large intestine without perforation or abscess without bleeding (principal); M54.9 Dorsalgia, unspecified; F32.A Depression, unspecified; E78.5 Hyperlipidemia, unspecified; E78.00 Pure hypercholesterolemia, unspecified; E66.9 Obesity, unspecified; Z68.35 Body mass index [BMI] 35.0-35.9, adult; G47.30 Sleep apnea, unspecified; Z87.891 Personal history of nicotine dependence; F12.90 Cannabis use, unspecified, uncomplicated; G89.29 Other chronic pain; R74.8 Abnormal levels of other serum enzymes
CPT/HCPCS: 36415; 74177; 80053; 85025; 96361; 96365; 96366; 96372; 96375; 96376; 99285; A9270; G0378; J1650; J2270; J2405; J2543; J7030; Q9967

== ENCOUNTER 2021-07-31 10:06 | Emergency (ER) | payer OTHER, SELFPAY ==
[2021-07-31 10:16] VITALS: BP 137/89; PULSE 74; RESP 16; TEMP 36.4; O2SAT 100
--- NOTE | 2021-07-31 10:28 | ED.ABDPAIN ---
HPI - Abdominal Pain General Chief Complaint: Abdominal Pain Stated Complaint: Abdominal Pain Time Seen by Provider: 07/31/21 10:28 Source: patient Mode of arrival: ambulatory Limitations: no limitations History of Present Illness HPI narrative: 45-year-old male presents with complaint of right-sided abdominal aching and intermittent diarrhea for 2 days. Reports that he has a history of diverticulitis and pain is always located on right side. Has been hospitalized twice due to diverticulitis, once with a micro perforation and another time with significant inflammation that required IV antibiotics. He has a GI doctor but no PCP. Was told to start antibiotics as soon as possible when pain starts. He denies fever chills, no nausea vomiting. Patient is well-appearing, appears to be in no pain. All systems reviewed and negative except as noted above. Related Data Home Medications Medication Instructions Recorded Confirmed atorvastatin 40 mg PO DAILY 09/20/20 07/31/21 sertraline 25 mg PO DAILY 09/20/20 07/31/21 [id number] 1 cap PO DAILY 10/26/20 07/31/21 [krill oil] multivit with min-folic acid 1 tablet PO DAILY 10/26/20 07/31/21 [Adult One Daily Multivitamin] cetirizine-pseudoephedrine 1 tablet PO DAILY 04/12/21 07/31/21 [Zyrtec-D] Allergies Allergy/AdvReac Type Severity Reaction Status Date / Time No Known Allergies Allergy Unknown Verified 07/31/21 10:20 Review of Systems Review of Systems: CONSTITUTIONAL: Denies fever, chills, or sweats. EYES: Denies visual changes, redness, or discharge. ENT: Denies rhinorrhea, congestion, sore throat, or otalgia. CARDIOVASCULAR: Denies chest pain, palpitations, or edema. RESPIRATORY: Denies cough or dyspnea. GASTROINTESTINAL: Reports abdominal pain. Denies nausea, vomiting, or diarrhea. GENITOURINARY: Denies dysuria or hematuria. SKIN: Denies rash or itching. MUSCULOSKELETAL: Denies back pain, joint pain, or myalgia. NEUROLOGIC: Denies headache, numbness, or weakness. PSYCHIATRIC: Denies anxiety or depression. All other systems reviewed are negative, except as documented in HPI. FORMERLY [facility] Past Medical History Medical History (Updated 04/04/22 @ 10:43 by Aure Rawls NP) Back pain Depression Diverticulitis HLD (hyperlipidemia) Hypercholesterolemia Leukocytosis Lower abdominal pain Obesity Sleep apnea Surgical History Surgical History Hx of colonoscopy 2000, one polyp removed Hx of vasectomy Family History Family History Mother Family history of malignant neoplasm of uterus Father Afib Social History Social History Smoking status: Current some day smoker Tobacco type: cigarettes Smokeless tobacco user: other Smoking end date: 04/29/02 Alcohol intake: current Drinks per week: 7 Substance use: current Substance use type: marijuana Last use: 04/08/21 Gender identity (if verbalized by the patient): Male Spiritual care concerns: No Comments At time of signature, agree with nursing past medical, surgical, social and family history. There is no relevant family history pertinent to the presenting complaint. Exam Narrative: GENERAL: This is a well-nourished, well-developed patient, in no apparent distress. HEAD: normocephalic, atraumatic. EYES: PERRL. Sclera clear/white. Vision is grossly intact. EARS: External ears normal NOSE: External nose normal THROAT: Mucous membranes moist NECK: Neck supple, non-tender without lymphadenopathy, masses or thyromegaly. CARDIOVASCULAR: Regular rate and rhythm without murmurs, gallops, or rubs. RESPIRATORY: Clear to auscultation. Breath sounds equal bilaterally. No wheezes, rales, or rhonchi. GASTROINTESTINAL: Abdomen soft, non-tender, nondistended. Bowel sounds are active. No hepato-splenomegaly, or palpable mass
== END 2021-07-31 10:45 | disposition home or self-care (01) ==
PROVIDERS: Emergency Provider Nurse Practitioner Family
DX: R10.9 Unspecified abdominal pain (principal); Z87.19 Personal history of other diseases of the digestive system; E78.5 Hyperlipidemia, unspecified; E78.00 Pure hypercholesterolemia, unspecified; G47.33 Obstructive sleep apnea (adult) (pediatric); E66.9 Obesity, unspecified; Z68.34 Body mass index [BMI] 34.0-34.9, adult; Z98.52 Vasectomy status; F32.A Depression, unspecified
CPT/HCPCS: 99213; G0463

== ENCOUNTER 2021-09-26 09:42 | Outpatient (CLI) | payer OTHER, SELFPAY ==
--- NOTE | 2021-09-26 10:26 | ECG_ITS ---
Measurements Intervals Index Rate: 65 P: 2 OK: 171 QRS: 19 QRSD: 100 T: 20 QT: 386 QTc: 404 Interpretive Statements SINUS RHYTHM BASELINE ARTIFACT- I, III, AVR, AVL, AVF NORMAL ECG Electronically Signed On 09-26-2021 14:14:28 CDT by Bobby Cortez D.O.
== END 2021-09-26 09:43 | disposition home or self-care (01) ==
LOC: ANHSURGERY 09:46
PROVIDERS: PCP Nurse Practitioner; Visit Provider Surgery
DX: Z01.818 Encounter for other preprocedural examination (principal); K57.80 Diverticulitis of intestine, part unspecified, with perforation and abscess without bleeding; E78.00 Pure hypercholesterolemia, unspecified
CPT/HCPCS: 36415; 86850; 86900; 86901; 93005

== ENCOUNTER 2021-10-05 16:56 | Inpatient (IN) | payer OTHER, SELFPAY ==
--- NOTE | 2021-09-26 10:10 | PC.NURSE ---
Report to the Outpatient Waiting Room, entrance under the green pavilion located off [facility], at time _1000 on date _10/05/21 . OR Time: 1200 . - You and your visitor will be asked a series of questions to screen for COVID 19 for your protection. - Only one visitor is allowed at this time. - The patient visitor is requested to leave or wait in car when not with patient. - A mask is required within the hospital. Patients may have clear liquids (water, carbonated beverages, clear teas, apple juice) until 3 hours prior to surgery with a maximum of 20 ounces. - No food from midnight until time of surgery - Infants may have breast milk until 4 hours before surgery, infant formula 6 hours prior to surgery. - Children will be allowed to drink immediately following surgery. If applicable, please bring a bottle or sippy cup to assist with drinking. Juice, water, soda, and popsicles are readily available. For infants on formula, please bring formula the day of surgery. Pacifiers are allowed. Take the following medications with a SIP of water the morning of surgery: ___SERTRALINE Medications to discontinue per physician __ALL VITAMINS AND SUPPLEMENTS 3 DAYS PRE OP Date to take last dose___10/01/21 Please no make-up, nail liberian, hairspray, perfume, deodorant, or body powder the day of surgery. No jewelry (including any body piercings) or valuables the day of surgery, leave them at home. Please take a shower or bath the night before, or the morning of, surgery with an antibacterial soap. Wear comfortable, loose fitting clothing. Children are encouraged to wear pajamas. - Jewelry must be removed prior to entering the operating room. Rings and piercings that are not removed may be cut off. - The hospital will not accept responsibility for valuables. - Please leave all valuables, including medications, at home the day of surgery. BOWEL PREP PER DR LEAL If you are going home after surgery, a licensed straddle bug driver must drive you home. - NO public transportation without another adult. - We recommend that an adult stay with you for 24 hours following discharge. - We also recommend that you do not drive, make important decision, drink alcoholic beverages, or take any drugs that were not prescribed by your health care provider for at least 24 hours after your discharge time.HIBICLENS SHOWER DAY BEFORE SURGERY AND MORNING OF SURGERY For Pediatric surgeries, we recommend two adults accompany the child home (only one inside the building at this time). Follow any additional instructions given to you from your surgeon. If you or anyone in your household have experienced Covid symptoms in the past week, please notify your surgeon or the nurse liaison at the phone number below for possible testing. VERBAL AND WRITTEN instructions given to __PATIENT and asked if any additional questions and then verbalized understanding. Patient advised to call surgeon office or pre surgery nurse liaison [phone] if any additional questions.
[2021-09-26 10:27] VITALS: BP 127/80; PULSE 69; RESP 18; TEMP 36.8; O2SAT 99; BMI 36.1
[2021-10-05] VITALS (15 sets, daily range): BP systolic 124–153; BP diastolic 75–97; PULSE 67–101; RESP 12–18; TEMP 36.1–37.1; O2SAT 94–100; BMI 33.6
--- NOTE | 2021-10-05 10:23 | WPDANESEPPF ---
Anes - Initial Pre Proc Eval Procedure: Operation Date: 10/05/21 12:30 Proposed Procedures p Hand Assisted Laparoscopic Sigmoid Colectomy - Aby Stallworth MD Date/Time: 10/05/21 10:23 Surgeon: Aby Stallworth MD Pre Op Diagnosis: diverticulitis with perforation Patient Data Age: 46 Gender: M Height: 1.73 m Weight: 107.7 kg Last Vital Signs Temp 36.8 C 09/26/21 10:27 Pulse 69 09/26/21 10:27 Resp 18 09/26/21 10:27 BP 127/80 09/26/21 10:27 Pulse Ox 99 09/26/21 10:27 O2 Del Method Room Air 09/26/21 10:27 Allergies Allergy/AdvReac Type Severity Reaction Status Date / Time No Known Allergies Allergy Unknown Verified 09/26/21 09:51 Home Medications Medication Instructions Recorded Confirmed Type atorvastatin 40 mg tablet 40 mg PO DAILY 09/20/20 09/26/21 History sertraline 25 mg tablet 25 mg PO DAILY 09/20/20 09/26/21 History krill 1 cap PO DAILY 10/26/20 09/26/21 History zfp-xy-2-[id number]-zhy-wragokrhkyujp 300 mg-90 mg-24 mg-50 mg capsule (krill oil) multivitamin with minerals-folic 1 tablet PO DAILY 10/26/20 09/26/21 History acid 0.4 mg tablet (Adult One Daily Multivitamin) cetirizine 5 mg-pseudoephedrine ER 1 tablet PO DAILY 04/12/21 09/26/21 History 120 mg tablet,extended release,12hr (Zyrtec-D) Saccharomyces boulardii 250 mg 250 mg PO DAILY 08/24/21 09/26/21 History capsule (Probiotic (S.boulardii)) psyllium husk 0.52 gram capsule 0.52 g PO BID 08/24/21 09/26/21 History (Fiber (psyllium husk)) erythromycin 500 mg tablet 1 g PO .COMPLEX #6 tabs 09/26/21 09/26/21 Rx neomycin 500 mg tablet 1 g PO .COMPLEX #6 tabs 09/26/21 09/26/21 Rx Patient hx anesthesia problems: none Family hx anesthesia problems: none Results Review: All pre-operative results and documents have been reviewed as part of the pre-operative evaluation. PMFSH Past Medical History Medical History Adenomatous colon polyp Back pain Depression Diverticulitis HLD (hyperlipidemia) Hypercholesterolemia Leukocytosis Lower abdominal pain Obesity Right lateral abdominal pain Sleep apnea Surgical History Surgical History History of placement of ear tubes Hx of colonoscopy 2000, one polyp removed Hx of vasectomy Family History Family History Mother Family history of malignant neoplasm of uterus Father Afib Social History Social History Smoking packs per day: 0.5 Smoking cigarettes per day: 10.0 Years smoked: 10 Smoking pack-years: 5.00 Smoking status: Former smoker Tobacco type: cigarettes Smokeless tobacco user: other Smoking end date: 04/29/02 Alcohol intake: current Drinks per week: 7 Alcohol use details: BEER Substance use: current Substance use type: marijuana Last use: 04/08/21 Living arrangements: with family Additional occupation/education comments: Cat [employer] Gender identity (if verbalized by the patient): Male Spiritual care concerns: No Anes - Eval Final PreProcedure Day of Procedure 10/05/21 10:23 Patient weight: obese Heart: regular rate and rhythm Lungs: clear to auscultation and normal air movement Airway: Mallampati scale class II Neurological: alert and oriented Last oral intake: >/= 8 hours ASA classification: III Emergent: no Anesthetic plan: proceed Anesthesia type and monitoring: general ETT Results Review: All pre-operative results and documents have been reviewed as part of the pre-operative evaluation. Informed Consent: The patient's anesthetic plan and its attendant risks and benefits were discussed with the patient/family/POA. Questions were solicited and answers provided to the satisfaction of the patient/family/POA.
[2021-10-05] MEDS: LACTATED RINGERS 1,000 ML 30 ML IV CONT ×2 (11:25→15:24)
[2021-10-05] MEDS: ACETAMINOPHEN 500 MG TABLET 1000 MG PO (11:26)
[2021-10-05] MEDS: KETOROLAC 15 MG/ML VIAL (*BKC) IV PUSH (11:27)
--- NOTE | 2021-10-05 12:36 | WPDHPUPDATE1 ---
History and Physical Update Update Date/Time: 10/05/21 12:36 History and Physical has been reviewed, including an updated exam of the patient. There are NO changes in the patient's condition. Risks, benefits, and alternatives have been discussed and questions answered. Patient agrees to proceed with procedure.
[2021-10-05] MEDS: metroNIDAZOLE 500 MG/ISO 100ML 500 MG/100 ML BAG 100 MG IVPB (12:45)
[2021-10-05] MEDS: ceFAZolin 2 GM/D5W 50 ML 2 GM/50 ML BAG IVPB (13:05)
[2021-10-05] MEDS: LIDO 1%/EPINEPHRINE/PF 1:200,000 30 ML VIAL XX (13:52)
--- NOTE | 2021-10-05 15:16 | W.PM.PROC2 ---
Procedure Note - Detailed Date of Procedure 10/05/21 Pre-op Diagnosis diverticulitis with perforation Post-op Diagnosis Same Procedure Performed hand assisted laparoscopic sigmoid colectomy with mobilization of the splenic flexure Surgeon Aby Stallworth MD Anesthesia General Indications 46-year-old male presented with complicated diverticulitis and microperforation. Initially treated conservatively approximately 2 months ago. Now presenting for interval sigmoid colectomy due to multiple episodes and continued symptomatology. Findings Area of residual inflammation in mid to distal sigmoid colon measuring approximately 8-9 inches Description of Procedure The patient was taken to the operating room and placed in the modified lithotomy position. After adequate induction of general anesthesia, the patient was prepped and draped in the normal sterile fashion. A time-out was then done to verify the patient's identity, as well as the procedure being performed. I began by making a hand port incision around the umbilicus. This incision was carried down into the peritoneal cavity and no adhesions were noted. At this point, the hand port was placed and the abdomen was insufflated. I then placed a trocar through this site and under direct visualization placed a 5 mm and 12 mm ports in the right lower abdomen. There were some adhesions of the small bowel to the pelvis and these were taken down with the LigaSure device. I was then able to sweep the small bowel out of the operative field. I then identified the area of inflammation in the sigmoid colon. This was noted to be in the distal sigmoid approximately 12 cm from the pelvic brim. I then mobilized the proximal colon to gain adequate length for our anastomosis. I took down the white line of Toldt laterally along the sigmoid and descending colon. In order to insure adequate length I went ahead and mobilized the splenic flexure as well. I then began dissection of the sigmoid colon itself. I used a medial to lateral approach 1st identifying the left colic vessels. The left colic vessels were identified at the base the mesentery. I was able to visualize the left ureter at this point as well and this was noted to be posterior and out of the way. I then took down the mesenteric attachments close to the colon using the LigaSure device. I then carried this dissection plane inferiorly to the level of the distal sigmoid upper rectum. I then dissected laterally by taking down the white line of Toldt in this area. Also dissected around the area of the distal sigmoid and upper rectum. I was then able to get around circumferentially in the distal sigmoid upper rectal area. I then transected the distal sigmoid with upper rectum using a echelon stapler. At this point, I was able to extracorporealyze the specimen. I then again was able to identify the inflamed area and noted adequate, healthy colon proximal to this area. I then found an area proximal to this area, approximately 5-10 cm to the area that was likely the site of previous perforation, to transect the proximal sigmoid colon. This was done with an echelon stapler. I then prepared the proximal colon for our colorectal anastomosis. Using the EEA sizers, it was noted a 28 EEA stapler would be used for the anastomosis. I then used a auto pursestring device after transecting the proximal colon and placing the 28 anvil in the proximal colon. We then reinsufflated the abdomen and noted adequate length of the proximal colon for our anastomosis. The rectum was then dilated 1st digitally then with the EEA sizers. Once adequately done, the 28 EEA stapler was placed through the rectum and brought out through the middle of the previous staple line. I then completed a 28 EEA colorectal anastomosis. We then did an air leak test using the proctoscope and no leak was noted. The anastomosis was noted to be widely patent and tension-free. I then examined the rest of the ab
[2021-10-05] MEDS: fentaNYL CITRATE INJ (*CRX) 100 MCG/2 ML VIAL 25 MCG IV PUSH ×8 (15:40→16:11)
[2021-10-05] MEDS: HYDROmorphone HCL INJ (*CRX) 1 MG/ML SYR IV PUSH (16:40)
--- NOTE | 2021-10-05 17:10 | ADMGEN ---
This patient, Luis Felipe Chun, was admitted to Medical Room 253-01. Patient/family oriented to hospital policies and general routines including ID bracelet, bed and alarms, visiting hours, pain management, procedures, bathroom and other care routines, personal items, smoking policy, room service/diet, and visiting hours. Information on how to activate the Rapid Response Team has been discussed. Patient/Family are encouraged to report perceived risks to care and to ask questions if they do not understand what they are told or what they should do.
[2021-10-05] MEDS: LACTATED RINGERS 1,000 ML 100 ML IV CONT (17:59)
[2021-10-05] MEDS: HYDROcodone/acetaminophen (*CRX) 5-325 MG TABLET 2 TAB PO (18:10)
[2021-10-05] MEDS: MORPHINE SULFATE (*CRX) 4 MG/ML INJ IV PUSH ×2 (19:08→22:10)
[2021-10-05] MEDS: HYDROcodone/acetaminophen (*CRX) 5-325 MG TABLET 1 TAB PO (21:25)
--- NOTE | 2021-10-05 21:31 | PC.NURSE ---
pt called for pain medication for pain of 5/10. pt was told he will receive one norco for his moderate pain. pt became agitated and is requesting only IV pain medication and states he should have said his pain was higher so he could receive IV pain medication. pt was educated on pain management plan and verbalized understanding
[2021-10-05] MEDS: ONDANSETRON INJ 4 MG/2 ML VIAL IV PUSH (22:53)
[2021-10-06] VITALS: BP 126/89; PULSE 106; RESP 18; TEMP 36.6; O2SAT 98
[2021-10-06] MEDS: MORPHINE SULFATE (*CRX) 4 MG/ML INJ IV PUSH ×4 (00:12→11:17)
[2021-10-06 04:00] VITALS: BP 132/80; PULSE 85; RESP 20; TEMP 36.9; O2SAT 100
[2021-10-06] MEDS: LACTATED RINGERS 1,000 ML 100 ML IV CONT ×2 (04:46→14:21)
[2021-10-06 06:18] LABS: Basophils Percent Auto 0.2 % (0.2-1.2); Hematocrit 35.7 % (42.0-52.0); Hemoglobin 11.8 g/dL (14.0-18.0); Immature Granulocyte Absolute 0.12 K/mm3 (0.00-0.031); Immature Granulocyte Percent A 0.8 % (0-0.5); Lymphocytes Absolute Auto 0.76 K/mm3 (0.9-3.2); Lymphocytes Percent Auto 5.3 % (18.3-44.2); Mean Corpuscular HGB Conc 33.1 g/dl (32-36); Mean Corpuscular Hemoglobin 31.9 pg (26-34); Mean Corpuscular Volume 96.5 fl (80-100); Mean Platelet Volume 9.7 fl (7.4-10.4); Monocytes Absolute Auto 1.2 K/mm3 (0.1-0.6); Monocytes Percent Auto 8.6 % (2.6-8.5); Neutrophils Absolute Auto 12.2 K/mm3 (1.3-6.7); Neutrophils Percent Auto 85.1 % (45.5-73.1); Platelet Count Result 234 k/mm3 (150-375); Red Cell Distribution Width 12.6 % (11.5-14.5); White Blood Count 14.3 K/mm3 (4.5-10.0)
[2021-10-06 06:36] LABS: Anion Gap 5 mmol/L (8-16); Blood Urea Nitrogen 13 mg/dL (9-20); Calcium 8.4 mg/dL (8.4-10.2); Carbon Dioxide 26 mmol/L (22-30); Chloride 104 mmol/L (98-107); Estimated CRCL calculation 119 ml/min; Estimated Glomerular Filt Rate > 60; Glucose 143 mg/dL (65-110); Potassium 4.8 mmol/L (3.4-5.0); Sodium 135 mmol/L (137-145)
[2021-10-06] MEDS: PANTOPRAZOLE 40 MG TABLET PO (09:29)
[2021-10-06] MEDS: SERTRALINE HCL 25 MG TABLET PO (09:29)
[2021-10-06] MEDS: LORATADINE/PSEUDOEPHEDRINE (*CRX) 10/240 MG TABLET ER 24 HR 1 TAB PO (09:29)
[2021-10-06] MEDS: MORPHINE SULFATE (*CRX) 2 MG/ML INJ IV PUSH ×5 (09:29→22:30)
[2021-10-06] MEDS: ENOXAPARIN 40 MG/0.4 ML SYRINGE SUB-Q (09:30)
[2021-10-06] MEDS: ATORVASTATIN 40 MG TABLET PO (09:30)
[2021-10-06 10:00] VITALS: BP 147/81; PULSE 74; RESP 22; TEMP 36.8; O2SAT 100
--- NOTE | 2021-10-06 10:43 | PM.PNGS ---
Progress Note: A&P Assessment and Plan (1) Diverticulitis of intestine with perforation without abscess: Qualifiers: Diverticulitis site: unspecified part of intestinal tract Diverticulitis bleeding: without bleeding Qualified Code(s): K57.80 - Diverticulitis of intestine, part unspecified, with perforation and abscess without bleeding Code(s): K57.80 - Diverticulitis of intestine, part unspecified, with perforation and abscess without bleeding Status: Acute Assessment and Plan: doing well, cont clears for now, encourage OOB/IS Subjective Subjective Date/Time Seen: 10/06/21 10:43 c/o mild incisional soreness, gas pain Review of Systems Review of Systems: All systems reviewed & are unremarkable except as noted in HPI and below Exam Const: General: cooperative, comfortable and no acute distress Resp: Auscultation: clear to auscultation bilaterally Cardio: Rate: regular rate Rhythm: regular rhythm GI: Other: soft, sl dist, janessa TTP, incisions C/D/I Objective Data Vital Signs Vital Signs: Vital Signs - 24 hr 10/05/21 15:24 10/05/21 15:35 10/05/21 15:45 Temperature 37.1 C 36.9 C Pulse Rate 101 H 79 78 Respiratory Rate 12 12 12 Blood Pressure 153/97 H 142/88 H 141/87 H Pulse Oximetry 98 99 100 Oxygen Delivery Simple Face Mask Simple Face Mask Simple Face Mask Oxygen Flow Rate 8 8 8 10/05/21 15:50 10/05/21 16:05 10/05/21 16:15 Temperature 36.2 C L Pulse Rate 84 82 72 Respiratory Rate 17 13 13 Blood Pressure 132/85 130/91 H 132/80 Pulse Oximetry 97 96 96 Oxygen Delivery Room Air Room Air Room Air Oxygen Flow Rate 10/05/21 16:30 10/05/21 16:40 10/05/21 16:50 Temperature 36.3 C L Pulse Rate 79 73 76 Respiratory Rate 16 12 12 Blood Pressure 124/83 129/88 127/90 Pulse Oximetry 94 97 98 Oxygen Delivery Room Air Room Air Room Air Oxygen Flow Rate 10/05/21 17:20 10/05/21 17:15 10/05/21 17:30 Temperature 36.2 C L 36.3 C L Pulse Rate 67 77 Respiratory Rate 16 16 Blood Pressure 128/80 146/89 H Pulse Oximetry 98 97 Oxygen Delivery Room Air Oxygen Flow Rate 10/05/21 18:01 10/05/21 18:58 10/05/21 22:41 Temperature 36.4 C L 36.5 C 36.4 C Pulse Rate 78 70 80 Respiratory Rate 18 18 16 Blood Pressure 125/75 151/93 H 138/85 Pulse Oximetry 97 99 98 Oxygen Delivery Oxygen Flow Rate 10/06/21 00:00 10/06/21 04:00 10/06/21 08:00 Temperature 36.6 C 36.9 C Pulse Rate 106 H 85 Respiratory Rate 18 20 Blood Pressure 126/89 132/80 Pulse Oximetry 98 100 Oxygen Delivery Room Air Oxygen Flow Rate 10/06/21 10:00 Temperature 36.8 C Pulse Rate 74 Respiratory Rate 22 H Blood Pressure 147/81 H Pulse Oximetry 100 Oxygen Delivery Oxygen Flow Rate Intake/Output Intake/Output: Intake & Output 10/03/21 10/04/21 10/05/21 10/06/21 23:59 23:59 23:59 23:59 Intake Total 1200 1000 Output Total 450 Balance 1200 550 Meds/Results Medications: Active Medications Generic Name Dose Route Start Last Admin Trade Name Freq PRN Reason Stop Dose Admin Hydrocodone Bitart/Acetaminophen 1 tab 10/05/21 16:56 10/05/21 21:25 Hydrocodone/Acetaminophen (*Crx) 5-325 Mg Tablet PO 1 tab Q4H PRN Administration Pain Rated 4-6 Alvimopan 12 mg 10/06/21 21:00 Alvimopan 12 Mg Capsule PO 10/13/21 20:59 Q12HR JOSH Atorvastatin Calcium 40 mg 10/06/21 09:00 10/06/21 09:30 Atorvastatin 40 Mg Tablet PO 40 mg DAILY JOSH Administration Enoxaparin Sodium 40 mg 10/06/21 09:00 10/06/21 09:30 Enoxaparin 40 Mg/0.4 Ml Syringe SUB-Q 40 mg DAILY JOSH Administration Lactated Ringer's 1,000 mls @ 100 mls/hr 10/05/21 16:56 10/06/21 04:46 Lr - Lactated Ringers Iv IV CONT 100 mls/hr .Q10H JOSH Administration Loratadine/Pseudoephedrine Sulfate 1 tab 10/06/21 09:00 10/06/21 09:29 Loratadine/Pseudoephedrine (*Crx) 10/240 Mg Tablet Er 24 Hr PO 11/05/21 08:59 1 tab DAILY JOSH Administratio
[2021-10-06] MEDS: HYDROcodone/acetaminophen (*CRX) 5-325 MG TABLET 1 TAB PO (13:03)
[2021-10-06 14:00] VITALS: BP 135/79; PULSE 76; RESP 20; TEMP 36.7; O2SAT 98
[2021-10-06 18:00] VITALS: BP 122/81; PULSE 72; RESP 16; TEMP 36.6; O2SAT 100
[2021-10-06] MEDS: ALVIMOPAN 12 MG CAPSULE PO (20:02)
[2021-10-06 20:20] VITALS: BP 126/75; PULSE 94; RESP 16; TEMP 37.2; O2SAT 96
[2021-10-07] MEDS: LACTATED RINGERS 1,000 ML 100 ML IV CONT (00:56)
[2021-10-07] MEDS: MORPHINE SULFATE (*CRX) 4 MG/ML INJ IV PUSH ×8 (01:42→23:51)
[2021-10-07] MEDS: MORPHINE SULFATE (*CRX) 2 MG/ML INJ IV PUSH (05:38)
[2021-10-07 06:03] LABS: Hemoglobin 9.9 g/dL (14.0-18.0); Mean Corpuscular Hemoglobin 32.1 pg (26-34); Mean Corpuscular Volume 97.4 fl (80-100); Platelet Count Result 186 k/mm3 (150-375); Red Blood Count 3.08 M/mm3 (4.6-6.20); Red Cell Distribution Width 13.2 % (11.5-14.5); White Blood Count 8.5 K/mm3 (4.5-10.0)
[2021-10-07 06:12] LABS: Anion Gap 4 mmol/L (8-16); Blood Urea Nitrogen 10 mg/dL (9-20); Calcium 8.5 mg/dL (8.4-10.2); Carbon Dioxide 28 mmol/L (22-30); Chloride 105 mmol/L (98-107); Estimated CRCL calculation 155 ml/min; Estimated Glomerular Filt Rate > 60; Glucose 107 mg/dL (65-110); Potassium 3.6 mmol/L (3.4-5.0); Sodium 137 mmol/L (137-145)
[2021-10-07] MEDS: ATORVASTATIN 40 MG TABLET PO (08:04)
[2021-10-07] MEDS: PANTOPRAZOLE 40 MG TABLET PO (08:05)
[2021-10-07] MEDS: SERTRALINE HCL 25 MG TABLET PO (08:05)
[2021-10-07] MEDS: ENOXAPARIN 40 MG/0.4 ML SYRINGE SUB-Q (08:05)
[2021-10-07] MEDS: ALVIMOPAN 12 MG CAPSULE PO ×2 (08:05→20:56)
[2021-10-07] MEDS: LORATADINE/PSEUDOEPHEDRINE (*CRX) 10/240 MG TABLET ER 24 HR 1 TAB PO (08:06)
--- NOTE | 2021-10-07 10:06 | PM.PNGS ---
Progress Note: A&P Assessment and Plan (1) Diverticulitis: Code(s): K57.92 - Diverticulitis of intestine, part unspecified, without perforation or abscess without bleeding Status: Acute Assessment and Plan: still having quite a bit of postoperative pain and taking morphine for pain control. H&H did drop from yesterday. This may be from some postoperative bleeding with the ecchymosis present but I suspect most of it is dilutional. I will stop his IV fluids as he is tolerating clear liquids well. Will advance to full liquids. Continue ambulation. Recheck labs and exam again tomorrow. White blood cell count decreased to normal range today. Subjective Subjective Date/Time Seen: 10/07/21 10:06 Post Op day: 2 Patient reports: still having pain, tolerating liquids well, no bowel movement and afebrile Interval history: having quite a bit of incisional pain. Taking morphine for pain. Has been getting up. Voiding okay. Exam Const: General: comfortable and no acute distress; No confusion Orientation/consciousness: patient oriented x3 and No confusion GI: Inspection: abdominal wall ecchymosis ( mostly below hand access incision in abdominal panniculus), non-distended and incision ( Incisions dry and healing well) GI Palp: Yes Soft to palpation, Yes Tenderness to palpation present (GI) ( diffusely), No Guarding due to palpation present (GI) and No Rebound tenderness present Neuro: General: patient oriented x3, no focal motor deficits and No confusion Extrem: General: no calf tenderness and no edema Psych: Affect: normal affect Insight: Good insight present (Psych) Judgement: Good judgement present (Psych) Objective Data Vital Signs Vital Signs: Vital Signs - 24 hr 10/06/21 14:00 10/06/21 18:00 10/06/21 19:35 Temperature 36.7 C 36.6 C Pulse Rate 76 72 Respiratory Rate 20 16 Blood Pressure 135/79 122/81 Pulse Oximetry 98 100 Oxygen Delivery Room Air 10/06/21 20:20 10/07/21 08:00 Temperature 37.2 C Pulse Rate 94 Respiratory Rate 16 Blood Pressure 126/75 Pulse Oximetry 96 Oxygen Delivery Room Air Intake/Output Intake/Output: Intake & Output 10/04/21 10/05/21 10/06/21 10/07/21 23:59 23:59 23:59 23:59 Intake Total 1200 3040 1000 Output Total 2200 900 Balance 1200 840 100 Meds/Results Medications: Active Medications Generic Name Dose Route Start Last Admin Trade Name Miko PRN Reason Stop Dose Admin Hydrocodone Bitart/Acetaminophen 1 tab 10/05/21 16:56 10/06/21 13:03 Hydrocodone/Acetaminophen (*Crx) 5-325 Mg Tablet PO 1 tab Q4H PRN Administration Pain Rated 4-6 Alvimopan 12 mg 10/06/21 21:00 10/07/21 08:05 Alvimopan 12 Mg Capsule PO 10/13/21 20:59 12 mg Q12HR JOSH Administration Atorvastatin Calcium 40 mg 10/06/21 09:00 10/07/21 08:04 Atorvastatin 40 Mg Tablet PO 40 mg DAILY JOSH Administration Enoxaparin Sodium 40 mg 10/06/21 09:00 10/07/21 08:05 Enoxaparin 40 Mg/0.4 Ml Syringe SUB-Q 40 mg DAILY JOSH Administration Lactated Ringer's 1,000 mls @ 100 mls/hr 10/05/21 16:56 10/07/21 00:56 Lr - Lactated Ringers Iv IV CONT 100 mls/hr .Q10H JOSH Administration Loratadine/Pseudoephedrine Sulfate 1 tab 10/06/21 09:00 10/07/21 08:06 Loratadine/Pseudoephedrine (*Crx) 10/240 Mg Tablet Er 24 Hr PO 11/05/21 08:59 1 tab DAILY JOSH Administration Morphine Sulfate 2 mg 10/05/21 16:56 10/07/21 05:38 Morphine Sulfate (*Crx) 2 Mg/Ml Inj IV PUSH 2 mg Q2H PRN Administration Pain Rated 4-6 Morphine Sulfate 4 mg 10/05/21 16:56 10/07/21 08:06 Morphine Sulfate (*Crx) 4 Mg/Ml Inj IV PUSH 4 mg Q2H PRN Administration Pain Rated 7-10 Naloxone HCl 0.1 mg 10/05/21 16:56 Naloxone Hcl 0.4 Mg/Ml Vial IV PUSH Q2M PRN Opiate Reversal Ondansetron HCl 4 mg 10/05/21 16:56 10/05/21 22:53 Ondansetron Inj 4 Mg/2 Ml Vial IV PUSH 4 mg Q4H PRN Administration Nausea A
[2021-10-07 14:06] VITALS: BP 167/102; PULSE 80; RESP 16; TEMP 36.4; O2SAT 99
[2021-10-07 14:36] VITALS: BP 134/88
[2021-10-07] MEDS: HYDROcodone/acetaminophen (*CRX) 5-325 MG TABLET 1 TAB PO ×2 (16:00→21:56)
--- NOTE | 2021-10-07 16:49 | PC.NURSE ---
pt not eating much of full liquids, still having abd pain, diet not advanced at this time
[2021-10-07] MEDS: WATER FOR IRRIGATION, STERILE 1,000 ML BOTTLE 1000 ML (19:49)
[2021-10-07 20:07] VITALS: BP 143/99; PULSE 87; RESP 20; TEMP 36.6; O2SAT 98
[2021-10-08] MEDS: MORPHINE SULFATE (*CRX) 4 MG/ML INJ IV PUSH ×6 (02:28→23:00)
[2021-10-08 05:55] LABS: Hematocrit 30.4 % (42.0-52.0); Hemoglobin 9.7 g/dL (14.0-18.0); Mean Corpuscular HGB Conc 31.9 g/dl (32-36); Mean Corpuscular Hemoglobin 31.8 pg (26-34); Mean Corpuscular Volume 99.7 fl (80-100); Mean Platelet Volume 9.3 fl (7.4-10.4); Platelet Count Result 176 k/mm3 (150-375); Red Blood Count 3.05 M/mm3 (4.6-6.20); Red Cell Distribution Width 13.1 % (11.5-14.5); White Blood Count 6.8 K/mm3 (4.5-10.0)
[2021-10-08 06:05] LABS: Potassium 3.8 mmol/L (3.4-5.0)
[2021-10-08 06:11] LABS: Anion Gap 5 mmol/L (8-16); Blood Urea Nitrogen 8 mg/dL (9-20); Calcium 8.7 mg/dL (8.4-10.2); Carbon Dioxide 30 mmol/L (22-30); Chloride 104 mmol/L (98-107); Estimated CRCL calculation 136 ml/min; Estimated Glomerular Filt Rate > 60; Glucose 111 mg/dL (65-110); Sodium 139 mmol/L (137-145)
[2021-10-08 07:55] VITALS: BP 166/98; PULSE 82; RESP 16; TEMP 36.4; O2SAT 100
--- NOTE | 2021-10-08 10:21 | PM.PNGS ---
Progress Note: A&P Assessment and Plan (1) Diverticulitis: Code(s): K57.92 - Diverticulitis of intestine, part unspecified, without perforation or abscess without bleeding Status: Acute Assessment and Plan: Looks pretty good but still taking IV morphine p.r.n. for pain. Will add 10 mg [place] q.6 hours p.r.n. for pain as an oral analgesic that is stronger than his 08/29/2024 [place]. Encouraged ambulation. Had diarrhea through the night and will stop Alvimopam. Anemic but stable from yesterday. Advance to regular diet. Hopefully home tomorrow. Subjective Subjective Date/Time Seen: 10/08/21 10:21 Post Op day: 3 Patient reports: still having pain ( took morphine sulfate IV for pain this morning already.), tolerating liquids well, diarrhea ( 3 liquid stools through the night kept him up and going to the bathroom) and afebrile Exam Const: General: healthy appearing, comfortable, alert and awake Nutritional Appearance: overweight Orientation/consciousness: patient oriented x3 GI: Inspection: abdominal wall ecchymosis ( No change from yesterday, mostly below hand access incision in panniculus), non-distended, incision ( dry and healing well) and obesity GI Palp: Yes Soft to palpation and Yes Tenderness to palpation present (GI) ( incisional) Auscultation: normal bowel sounds Objective Data Vital Signs Vital Signs: Vital Signs - 24 hr 10/07/21 14:06 10/07/21 14:36 10/07/21 20:07 Temperature 36.4 C L 36.6 C Pulse Rate 80 87 Respiratory Rate 16 20 Blood Pressure 167/102 H 134/88 143/99 H Pulse Oximetry 99 98 10/08/21 07:55 Temperature 36.4 C Pulse Rate 82 Respiratory Rate 16 Blood Pressure 166/98 H Pulse Oximetry 100 Intake/Output Intake/Output: Intake & Output 10/05/21 10/06/21 10/07/21 10/08/21 23:59 23:59 23:59 23:59 Intake Total 1200 3040 2665 340 Output Total 2200 900 Balance 6127 440 3786 340 Meds/Results Medications: Active Medications Generic Name Dose Route Start Last Admin Trade Name Freq PRN Reason Stop Dose Admin Hydrocodone Bitart/Acetaminophen 1 tab 10/05/21 16:56 10/07/21 21:56 Hydrocodone/Acetaminophen (*Crx) 5-325 Mg Tablet PO 1 tab Q4H PRN Administration Pain Rated 4-6 Hydrocodone Bitart/Acetaminophen 1 tab 10/08/21 10:21 Hydrocodone/Acetaminophen (*Crx) 10-325 Mg Tablet PO Q6H PRN Pain Rated 7-10 Atorvastatin Calcium 40 mg 10/06/21 09:00 10/07/21 08:04 Atorvastatin 40 Mg Tablet PO 40 mg DAILY JOSH Administration Enoxaparin Sodium 40 mg 10/06/21 09:00 10/07/21 08:05 Enoxaparin 40 Mg/0.4 Ml Syringe SUB-Q 40 mg DAILY JOSH Administration Loratadine/Pseudoephedrine Sulfate 1 tab 10/06/21 09:00 10/07/21 08:06 Loratadine/Pseudoephedrine (*Crx) 10/240 Mg Tablet Er 24 Hr PO 11/05/21 08:59 1 tab DAILY JOSH Administration Morphine Sulfate 2 mg 10/05/21 16:56 10/07/21 05:38 Morphine Sulfate (*Crx) 2 Mg/Ml Inj IV PUSH 2 mg Q2H PRN Administration Pain Rated 4-6 Morphine Sulfate 4 mg 10/05/21 16:56 10/08/21 09:20 Morphine Sulfate (*Crx) 4 Mg/Ml Inj IV PUSH 4 mg Q2H PRN Administration Pain Rated 7-10 Naloxone HCl 0.1 mg 10/05/21 16:56 Naloxone Hcl 0.4 Mg/Ml Vial IV PUSH Q2M PRN Opiate Reversal Ondansetron HCl 4 mg 10/05/21 16:56 10/05/21 22:53 Ondansetron Inj 4 Mg/2 Ml Vial IV PUSH 4 mg Q4H PRN Administration Nausea And Vomiting Pantoprazole Sodium 40 mg 10/06/21 09:00 10/07/21 08:05 Pantoprazole 40 Mg Tablet PO 40 mg QAM JOSH Administration Sertraline HCl 25 mg 10/06/21 09:00 10/07/21 08:05 Sertraline Hcl 25 Mg Tablet PO 25 mg DAILY JOSH Administration Labs Labs: Laboratory Results - last 24 hr 10/08/21 10/08/21 05:37 05:37 WBC 6.8 RBC 3.05 L Hgb 9.7 L Hct 30.4 L MCV 99.7 MCH 31.8 MCHC 31.9 L RDW 13.1 Plt Count 176 MPV 9.3 Sodium 139 Potassium 3.8 Chloride 104 Ca
[2021-10-08] MEDS: PANTOPRAZOLE 40 MG TABLET PO (10:29)
[2021-10-08] MEDS: SERTRALINE HCL 25 MG TABLET PO (10:29)
[2021-10-08] MEDS: ENOXAPARIN 40 MG/0.4 ML SYRINGE SUB-Q (10:29)
[2021-10-08] MEDS: ATORVASTATIN 40 MG TABLET PO (10:29)
[2021-10-08] MEDS: LORATADINE/PSEUDOEPHEDRINE (*CRX) 10/240 MG TABLET ER 24 HR 1 TAB PO (10:29)
[2021-10-08] MEDS: HYDROcodone/acetaminophen (*CRX) 10-325 MG TABLET 1 TAB PO ×2 (11:23→19:36)
[2021-10-08 16:05] VITALS: BP 146/90; PULSE 65; RESP 16; TEMP 36.4; O2SAT 100
[2021-10-08 20:32] VITALS: BP 139/87; PULSE 78; RESP 20; TEMP 36.4; O2SAT 98
[2021-10-09] MEDS: HYDROcodone/acetaminophen (*CRX) 10-325 MG TABLET 1 TAB PO ×4 (02:37→20:48)
[2021-10-09 04:32] VITALS: BP 156/91; PULSE 86; RESP 18; TEMP 36.4; O2SAT 100
[2021-10-09] MEDS: MORPHINE SULFATE (*CRX) 2 MG/ML INJ IV PUSH (04:37)
[2021-10-09 05:47] LABS: Hematocrit 31.6 % (42.0-52.0); Hemoglobin 10.2 g/dL (14.0-18.0); Mean Corpuscular HGB Conc 32.3 g/dl (32-36); Mean Corpuscular Hemoglobin 32.2 pg (26-34); Mean Corpuscular Volume 99.7 fl (80-100); Mean Platelet Volume 9.8 fl (7.4-10.4); Platelet Count Result 227 k/mm3 (150-375); Red Blood Count 3.17 M/mm3 (4.6-6.20); White Blood Count 6.2 K/mm3 (4.5-10.0)
[2021-10-09 06:03] LABS: Anion Gap 7 mmol/L (8-16); Blood Urea Nitrogen 10 mg/dL (9-20); Calcium 8.6 mg/dL (8.4-10.2); Carbon Dioxide 28 mmol/L (22-30); Chloride 103 mmol/L (98-107); Estimated CRCL calculation 133 ml/min; Estimated Glomerular Filt Rate > 60; Glucose 100 mg/dL (65-110); Sodium 138 mmol/L (137-145)
[2021-10-09] MEDS: ATORVASTATIN 40 MG TABLET PO (08:30)
[2021-10-09] MEDS: SERTRALINE HCL 25 MG TABLET PO (08:30)
[2021-10-09] MEDS: PANTOPRAZOLE 40 MG TABLET PO (08:30)
[2021-10-09] MEDS: LORATADINE/PSEUDOEPHEDRINE (*CRX) 10/240 MG TABLET ER 24 HR 1 TAB PO (08:30)
[2021-10-09] MEDS: ENOXAPARIN 40 MG/0.4 ML SYRINGE SUB-Q (08:31)
--- NOTE | 2021-10-09 12:28 | PM.PNGS ---
Progress Note: A&P Assessment and Plan (1) Diverticulitis: Code(s): K57.92 - Diverticulitis of intestine, part unspecified, without perforation or abscess without bleeding Status: Acute Assessment and Plan: Continues to slowly improve. Tolerating a regular diet. Still working on pain control with oral analgesics. Encouraged ambulation and increasing activity as tolerated. Hgb remains stable. If he does well on oral analgesics through the day, then he could potentially be discharged later this evening or tomorrow. Additional Plan I have discussed the patient's case and plan of care with Dr. Stallworth. Subjective Subjective Date/Time Seen: 10/09/21 11:28 Post Op day: 4 (LESLI sigmoid colectomy) Patient reports: no new complaints, tolerating a regular diet, voiding w/o difficulty, flatus, bowel movement and afebrile Interval history: 46 yo M who presented for LESLI sigmoid colectomy on 10/05/21 due to diverticulitis with perforation. Chart reviewed. Patient seen and examined. He was started on a solid diet yesterday and has been tolerating this well. No nausea or vomiting. Still having mostly lower abdominal pain that has required IV Morphine up until early this morning. He feels this has been controlling his pain, but he is going to try sticking with only oral analgesics for today. Review of Systems Review of Systems: All systems reviewed & are unremarkable except as noted in HPI and below Exam Const: General: comfortable, no acute distress and awake Orientation/consciousness: patient oriented x3 Resp: Effort & Inspection: normal respiratory effort Auscultation: clear to auscultation bilaterally Cardio: Rate: regular rate Rhythm: regular rhythm GI: Inspection: abdominal wall ecchymosis ( below hand access port across lower abd extending more to the R, soft), non-distended and incision ( dry and healing well) GI Palp: Yes Soft to palpation, Yes Tenderness to palpation present (GI) (incisional), No Guarding due to palpation present (GI) and No Rebound tenderness present Auscultation: normal bowel sounds Neuro: General: no focal motor deficits Extrem: General: no calf tenderness and no edema Psych: Insight: Good insight present (Psych) Judgement: Good judgement present (Psych) Objective Data Vital Signs Vital Signs: Vital Signs - 24 hr 10/08/21 16:05 10/08/21 20:32 10/09/21 04:32 Temperature 97.6 F 97.6 F 97.5 F L Pulse Rate 65 78 86 Respiratory Rate 16 20 18 Blood Pressure 146/90 H 139/87 156/91 H Pulse Oximetry 100 98 100 Oxygen Delivery 10/09/21 08:35 Temperature Pulse Rate Respiratory Rate Blood Pressure Pulse Oximetry Oxygen Delivery Room Air Intake/Output Intake/Output: Intake & Output 10/06/21 10/07/21 10/08/21 10/09/21 23:59 23:59 23:59 23:59 Intake Total 3040 2665 1770 240 Output Total 2200 900 Balance 840 1765 1770 240 Meds/Results Medications: Active Medications Generic Name Dose Route Start Last Admin Trade Name Freq PRN Reason Stop Dose Admin Hydrocodone Bitart/Acetaminophen 1 tab 10/05/21 16:56 10/07/21 21:56 Hydrocodone/Acetaminophen (*Crx) 5-325 Mg Tablet PO 1 tab Q4H PRN Administration Pain Rated 4-6 Hydrocodone Bitart/Acetaminophen 1 tab 10/08/21 10:21 10/09/21 08:37 Hydrocodone/Acetaminophen (*Crx) 10-325 Mg Tablet PO 1 tab Q6H PRN Administration Pain Rated 7-10 Atorvastatin Calcium 40 mg 10/06/21 09:00 10/09/21 08:30 Atorvastatin 40 Mg Tablet PO 40 mg DAILY JOSH Administration Enoxaparin Sodium 40 mg 10/06/21 09:00 10/09/21 08:31 Enoxaparin 40 Mg/0.4 Ml Syringe SUB-Q 40 mg DAILY JOSH Administration Loratadine/Pseudoephedrine Sulfate 1 tab 10/06/21 09:00 10/09/21 08:30 Loratadine/Pseudoephedrine (*Crx) 10/240 Mg Tablet Er 24 Hr PO 11/05/21 08:59 1 tab DAILY JOSH Administration Morphine Sulfate 2 mg 10/05/21 16:56 10/09/21 04:37 Morphine Sulfate (*Crx) 2 Mg/Ml Inj IV PUSH
[2021-10-09 14:18] VITALS: BP 146/84; PULSE 70; RESP 18; TEMP 36.3; O2SAT 98
[2021-10-09 22:00] VITALS: BP 140/88; PULSE 83; RESP 20; TEMP 36.4; O2SAT 99
[2021-10-10] MEDS: HYDROcodone/acetaminophen (*CRX) 10-325 MG TABLET 1 TAB PO ×2 (02:48→12:57)
[2021-10-10 06:00] VITALS: BP 127/83; PULSE 75; RESP 20; TEMP 36.2; O2SAT 99
[2021-10-10] MEDS: ATORVASTATIN 40 MG TABLET PO (08:41)
[2021-10-10] MEDS: ENOXAPARIN 40 MG/0.4 ML SYRINGE SUB-Q (08:42)
[2021-10-10] MEDS: SERTRALINE HCL 25 MG TABLET PO (08:43)
[2021-10-10] MEDS: PANTOPRAZOLE 40 MG TABLET PO (08:43)
[2021-10-10] MEDS: LORATADINE/PSEUDOEPHEDRINE (*CRX) 10/240 MG TABLET ER 24 HR 1 TAB PO (08:43)
[2021-10-10] MEDS: HYDROcodone/acetaminophen (*CRX) 5-325 MG TABLET 1 TAB PO (08:44)
--- NOTE | 2021-10-10 13:04 | PM.DS ---
DS: Admitting Diagnosis Discharge Date 10/10/2021 Admitting Diagnosis complicated diverticulitis with perforation DS: Discharge Diagnosis Discharge Diagnosis (1) Diverticulitis of intestine with perforation without abscess: Qualifiers: Diverticulitis site: unspecified part of intestinal tract Diverticulitis bleeding: without bleeding Qualified Code(s): K57.80 - Diverticulitis of intestine, part unspecified, with perforation and abscess without bleeding Code(s): K57.80 - Diverticulitis of intestine, part unspecified, with perforation and abscess without bleeding Status: Acute Assessment and Plan: status post hand assisted laparoscopic sigmoid colectomy, doing well, continue routine postoperative care, home with p.o. analgesia, follow-up 2 weeks DS: Summary Hospital Course Reason for hospitalization: complicated diverticulitis Hospital Course: The patient is a 46-year-old male that initially presented to the hospital with complicated diverticulitis and perforation. The patient was initially treated conservatively with bowel rest and IV antibiotics. The patient did well and was subsequently discharged with p.o. antibiotics. The patient re-presented to the hospital on 10/05 for interval sigmoid colectomy, please see operative report for full details. Postoperatively, the patient did well was transferred to the surgical and started on a clear liquid diet. Over the next few days, the patient did require IV analgesia for postoperative pain. The patient did regain bowel function on POD 3. The patient without difficulty throughout his postoperative stay. On postoperative day 5. , the patient has been able to tolerate his pain with p.o. analgesia. He has been tolerating a regular diet over the last few days without issue. Will now be discharged home with p.o. analgesia and routine postoperative care. He will follow up with me in 2 weeks. Status at Discharge Functional status at discharge: independent ambulation Overall status at discharge: patient is progressing back to baseline Time Spent with Patient Time attestation: Total time spent providing and/or coordinating discharge services: Exam Const: General: cooperative, comfortable and no acute distress Resp: Auscultation: clear to auscultation bilaterally Cardio: Rate: regular rate Rhythm: regular rhythm GI: Inspection: normal to inspection, abdominal wall ecchymosis, non-distended and incision GI Palp: Yes abdominal tenderness, Yes Soft to palpation, Yes Tenderness to palpation present (GI), No Guarding due to palpation present (GI) and No Rigid due to palpation DS: Data Data Completed and Pending Completed studies during hospitalization: Pending at discharge 10/05/21 14:58 Surgical [PTH] Routine Discharge Plan Discharge Attending physician on discharge: Aby Stallworth Discharging Clinician: Aby Stallworth Anticipated Discharge Date/Time: 10/10/21 13:00 Patient Disposition: Home, Self-Care Activity: may shower and no straining Diet: as tolerated Wound Care Instructions: incision open to air Patient Instructions: Antibiotic Form Stand Alone Forms: General Discharge Information Follow-up/Referrals: Aby Stallworth MD [Physician] - 2 Weeks Discharge Medications: New hydrocodone-acetaminophen 10-325 mg tablet 1 tablet PO Q6H PRN (Reason: pain) Qty: 30 0RF docusate sodium [Colace] 100 mg capsule 100 mg PO BID Qty: 30 0RF Continued Saccharomyces boulardii [Probiotic (S.boulardii)] 250 mg capsule 250 mg PO DAILY psyllium husk [Fiber (psyllium husk)] 0.52 gram capsule 0.52 g PO BID atorvastatin 40 mg tablet 40 mg PO DAILY sertraline 25 mg tablet 25 mg PO DAILY multivit with min-folic acid [Adult One Daily Multivitamin] 0.4 mg Tablet 1 tablet PO DAILY [id number] [krill oil] 792-41-05-50 mg Capsule 1 cap PO DAILY cetirizine-pseud
== END 2021-10-10 14:44 | disposition home or self-care (01) | DRG 331 ==
LOC: ANH2MED 17:00
PROVIDERS: Surgery; Admitting Provider Surgery; PCP Nurse Practitioner; Visit Provider Surgery
PROC: 0D1E4Z4 Bypass Large Intestine to Cutaneous, Percutaneous Endoscopic Approach (ICD-10-PCS; principal; 2021-10-05 12:30)
DX: K57.20 Diverticulitis of large intestine with perforation and abscess without bleeding (principal); E78.5 Hyperlipidemia, unspecified; E66.9 Obesity, unspecified; G47.30 Sleep apnea, unspecified; Z68.36 Body mass index [BMI] 36.0-36.9, adult; Z87.891 Personal history of nicotine dependence
CPT/HCPCS: 36415; 80048; 85025; 85027; 88309; A9270; C1729; J0690; J1100; J1170; J1650; J1885; J2250; J2270; J2405; J2704; J3010; J7030; J7120

== ENCOUNTER 2023-02-27 08:06 | Emergency (ER) | payer OTHER, SELFPAY ==
--- NOTE | 2023-02-27 08:14 | ED.BACK ---
HPI - Back Pain/Injury General Chief Complaint: Back Pain/Injury Stated Complaint: back pain Time Seen by Provider: 02/27/23 08:13 Source: patient Mode of arrival: ambulatory Limitations: no limitations History of Present Illness HPI Narrative: Patient is a 47-year-old male that presents with low back pain. Patient reports bulging discs to L4 and L5 6 years ago and reports he has flare ups months year. Patient states he was diagnosed with COVID on Saturday and spent most the day in bed. Saturday he felt better and started doing work around the house when back pain started. Patient rested and iced Saturday and Saturday with symptoms improving. Patient was back to normal Saturday until that evening and back pain started again. Patient has been taking naproxen. Patient requesting something to ?knock him out ?. Denies any pain on palpation, loss of bowel or bladder. Related Data Home Medications Medication Instructions Recorded Confirmed sertraline 25 mg tablet 25 mg PO DAILY 09/20/20 02/27/23 cetirizine 5 mg-pseudoephedrine ER 1 tablet PO DAILY 04/12/21 02/27/23 120 mg tablet,extended release,12hr (Zyrtec-D) Allergies Allergy/AdvReac Type Severity Reaction Status Date / Time No Known Allergies Allergy Unknown Verified 11/07/21 14:48 Review of Systems Review of Systems: All systems reviewed & are unremarkable except as noted in HPI and below Constitutional: Constitutional: Denies body ache(s), Denies chills, Denies fatigue, Denies fever(s), Denies headache(s), Denies malaise and Denies weakness Eyes: Eyes: Denies blurry vision, Denies irritation and Denies loss of vision ENT: Denies otalgia, Denies headache(s), Denies nasal discharge, Denies sinus pain and Denies sore throat Cardiovascular: Cardiovascular: Denies chest pain, Denies irregular heart rhythm and Denies dyspnea Respiratory: Respiratory: Denies dyspnea Gastrointestinal: Gastrointestinal: Denies abdominal pain, Denies melena, Denies hematochezia, Denies diarrhea, Denies nausea and Denies vomiting Musculoskeletal: Musculoskeletal: Reports back pain, Denies myalgias and Denies arthralgias Integumentary/Breasts: Skin/Breast: Denies pruritus and Denies rash Neurologic: Denies headache(s), Denies loss of vision and Denies weakness Psychiatric: Psychiatric: Reports no additional psychiatric complaints Endocrine: Endocrine: Denies fatigue PMFSH Past Medical History Medical History Adenomatous colon polyp Back pain Depression Diverticulitis HLD (hyperlipidemia) Hypercholesterolemia Leukocytosis Lower abdominal pain Obesity Right lateral abdominal pain Sleep apnea Surgical History Surgical History H/O colectomy LESLI sigmoid colectomy 10/05/21 History of placement of ear tubes Hx of colonoscopy 2000, one polyp removed Hx of vasectomy Family History Family History Mother Family history of malignant neoplasm of uterus Father Afib Social History Social History Smoking packs per day: 0.5 Smoking cigarettes per day: 10.0 Years smoked: 10 Smoking pack-years: 5.00 Smoking status: Former smoker Smokeless tobacco user: other Alcohol intake: current Drinks per week: 7 Alcohol use details: BEER Substance use: current Substance use type: marijuana Last use: 04/08/21 Living arrangements: with family Occupation/Education: occupation Additional occupation/education comments: Triage Technician Gender identity (if verbalized by the patient): Male Sexual Orientation (if Verbalized by the Patient): Straight or Heterosexual Spiritual care concerns: No Comments At time of signature, agree with nursing past medical, surgical, social and family history. There is no relevant family history pertinent to the pr
[2023-02-27 08:24] VITALS: BP 157/99; PULSE 79; RESP 20; TEMP 36.1; O2SAT 100
== END 2023-02-27 08:38 | disposition home or self-care (01) ==
PROVIDERS: Emergency Provider Nurse Practitioner Family
DX: M54.16 Radiculopathy, lumbar region (principal); Z87.891 Personal history of nicotine dependence; E78.5 Hyperlipidemia, unspecified; E78.00 Pure hypercholesterolemia, unspecified; F32.A Depression, unspecified; E66.9 Obesity, unspecified; Z68.34 Body mass index [BMI] 34.0-34.9, adult; Z98.52 Vasectomy status; Z86.16 Personal history of COVID-19
CPT/HCPCS: 99213; G0463

== ENCOUNTER 2024-04-10 07:28 | Outpatient (CLI) | payer BC, SELFPAY ==
--- NOTE | ~2024-04-10 | US_ITS ---
US abdomen complete EXAMINATION: US Abdomen Complete INDICATION: Elevated liver enzymes PROCEDURE: Realtime High Resolution abdomen ultrasound. COMPARISON: No prior studies for comparison FINDINGS: Gallbladder within normal limits. No gallstones, pericholecystic fluid, gallbladder wall t hickening or biliary dilatation. Common bile duct measures 4 mm. Liver echotexture is diffusely increased, consistent with fatty infiltration. There is a 7 mm liver c yst.. Pancreas within normal limits. Pancreatic tail is obscured by bowel gas. Spleen is unremarke able. Renal echotexture is within normal limits bilaterally without hydronephrosis, contour deforming mass or renal stone. Right kidney measures 13.2 cm. Left kidney measures 12.8 cm. Visualized aspects of the aorta and IVC are within normal limits. Portal vein is patent. No sonograph ic Bazzi's sign indicated by the technologist. IMPRESSION: 1: Normal abdominal ultrasound. Reviewed, dictated and finalized at location B. ICAL SALES REPRESENTATIVE
== END 2024-04-10 07:29 | disposition home or self-care (01) ==
PROVIDERS: PCP Family Medicine; Visit Provider Family Medicine
DX: R74.8 Abnormal levels of other serum enzymes (principal); R19.7 Diarrhea, unspecified
CPT/HCPCS: 76700